=== PATIENT | female | born 2000 | race Caucasian/White ===

== ENCOUNTER 2019-03-05 19:37 | Outpatient (CLI) | payer MEDICAID, SELFPAY ==
[2019-03-05 19:38] VITALS: BP 107/64; PULSE 105; RESP 18; TEMP 36.8; O2SAT 97; BMI 19.2
[2019-03-05 19:56] LABS: Mucous, Urine 0 SEEN /hpf (<or=2+); Red Blood Cells-Urine 0 SEEN /hpf (0-5)
[2019-03-05 20:04] LABS: Color, Urine Yellow (Yellow); Glucose, Dipstick Normal (Normal); Ketone-Dipstick 15 mg/dl (Negative); Leukocyte Esterase-Dipstick 500 /ul (Negative); Nitrite-Dipstick Positive (Negative); Occult Blood-Urine 150 /ul (Negative); Protein-Dipstick 100 mg/dl (Negative); Specific Gravity, Urine 1.025 (1.002-1.030); Urine Bilirubin Dipstick Negative (Negative); Urine Clarity Cloudy (Clear); Urine Urobilinogen 4 mg/dl (Normal)
[2019-03-05 20:17] LABS: White Blood Cells 25-50 SEEN /hpf (0-5)
[2019-03-05 20:18] LABS: Bacteria 4+ /hpf (None Seen); Squamous Epithelial Cells - UA 5-10 SEEN /hpf (5-10)
[2019-03-05 20:23] LABS: Absolute Neutrophil Count 6.6 X10^3/uL (2.0-7.7); Basophil# 0.02 X10^3/uL; Basophil% 0.3 % (0-1); Eosinophil# 0.01 X10^3/uL; Eosinophils% 0.1 % (0-5); Hematocrit 31.2 % (37-47); Hemoglobin 11.1 g/dL (12.0-15.0); Lymphocyte % 6.6 % (19-41); Mean Corp Hgb Conc 35.6 g/dL (32-36); Mean Corpuscular Hgb 31.1 pg (27.0-32.0); Mean Corpuscular Volume 87.4 fL (81-99); Mean Platelet Vol. 9.4 fl (6.2-12.0); Monocyte# 0.48 X10^3/uL; Monocyte% 6.3 % (0-10); NRBC Flagged by Analyzer 0 % (0-5); Neutrophil # 6.59 X10^3/uL (2.7-7.7); Neutrophil % 86.4 % (47-70); POSITIVE DIFFERENTIAL YES; Platelet Count 159 K/mm3 (150-450); RBC Distribution Width SD 41.2 fl (35.1-43.9); Red Blood Count 3.57 M/mm3 (4.2-5.4); White Blood Count 7.6 K/mm3 (4.4-11.0)
[2019-03-05 20:24] LABS: Differential Indicated SCAN CRITERIA MET
[2019-03-05 20:36] LABS: Anion Gap 8 (5-15); BUN 7 mg/dL (7-18); BUN/Creat Ratio 9.9 RATIO (10-20); Calcium,Total 8.6 mg/dL (8.5-10.1); Chloride 106 mmol/L (98-107); Creatinine, Serum 0.71 mg/dL (0.55-1.02); EST Glomerular Filtration Rate 111 mL/min (>60); Est Glom Filt Rate - Afr Amer 134 mL/min (>60); Estimated Creatinine Clearance 97.35 ml/min; Glucose 96 mg/dL (74-106); Sodium Level 138 mmol/L (136-145)
[2019-03-05 20:38] LABS: Internal QC Validated? YES +Cl - CLEAR BKGD
[2019-03-05 20:39] LABS: Pregnancy, Serum, hCG Quali. POSITIVE Negative
[2019-03-05 20:40] LABS: Differential Comment SCANNED
--- NOTE | 2019-03-05 21:00 | US_ITS ---
HISTORY: Right lower quadrant pain that is moderate in severity. No bleeding. No period for a year. test in the emergency room is positive. 52 endovaginal images. Findings: The cervix is not completely closed. It is measured at 3 cm. Fluid, likely blood is present within the endocervical canal. The uterus demonstrates a placenta and the gestational sac and fetus. The placenta is anterior and fundal. Cranially it does extend along the posterior margin for small amount. Debris is present within the amniotic fluid. Color Doppler imaging demonstrates flow to the umbilical cord and the fetus. heart motion by M-mode imaging is detected at 153 bpm. Presentation is breech. This study is not an anatomy screening ultrasound. The anatomy was not imaged in detail to assess for anatomic abnormalities. BDP equals 4.5 cm, equating to 19 weeks 4 days. HC equals 16.8 cm, equating to 19 weeks 4 days. AC equals 14.3 cm, equating to 19 weeks 5 day. FL equals 3 cm, equating to 19 weeks 3 days. Estimated weight is 299 g. US/OB Limited With Biometrics IMPRESSION: SLIUP. EGA 19 W-4 D PAUL 07/26/2019 Fluid within the endocervical canal possibly representing hemorrhage or amniotic fluid. This study was not performed as an anatomic survey. anomaly was not evaluated due to a great enough detail to include or exclude anomalies. at [id number] Reported and signed by: Bebeto Gaming MD Electronically Signed: Bebeto Gaming MD at 22:45 EDT Tel , Service support ,
[2019-03-05] MEDS: 0.9% Normal Saline 1,000 ML 1000 ML IV (21:28)
[2019-03-05] MEDS: proMETHazine 25 MG/ML Syringe 6.25 MG IV (21:29)
[2019-03-05] MEDS: Acetaminophen 500 MG Tablet 1000 MG PO (21:29)
--- NOTE | 2019-03-05 23:15 | ED.DCSUM_ITS ---
- ER Visit Summary Date of Service: 03/05/19 Chief Complaint: Right lower quadrant and right lower back pain History of Present Illness: The patient is a 19 F presenting with right lower quadrant and right lower back pain. This started yesterday. Patient has nausea with no vomiting. She has had dysuria. She has had fever up to 101.7 at home. She denies other complaints. Physical Examination: Vitals are stable. Heart rate 105. Patient is afebrile. Alert no acute distress. HEENT exam is unremarkable. Neck is supple. Lungs are clear and equal bilaterally. Heart is regular and tachycardic Abdomen is soft diffuse lower quadrant tenderness. No rebound or guarding Back right CVA tenderness Extremities are unremarkable. Skin is warm and dry. No focal neurologic deficit. Remainder of exam is unremarkable. Emergency Department Course and Treatment: Urinalysis shows 25-50 white blood cells, 0 red cells. Positive leukocyte and nitrite. CBC normal except for hemoglobin 11.1. Chemistries unremarkable. hCG positive. U[place] [address]. Blood type is O+. Pelvic ultrasound shows SLIUP. EGA 19 W-4 D PAUL 07/26/2019 Fluid within the endocervical canal possibly representing hemorrhage or amniotic fluid. Discussed with Dr. Champagne. Patient was given Rocephin IV. Patient will be sent to OB triage to check for amniotic fluid. Patient understands and is agreeable to plan. She is discharged to OB triage. Disposition: To OB triage Impression: Abdominal pain, , UTI This note was generated with mang[employer] jobs dictation software. It may contain incorrect words, spelling, and punctuation that were not noted in review of the chart prior to signing ED Disposition - Plan for ED Patient: Referrals: Mustapha Garay MD [Primary Care Provider] -
[2019-03-05 23:18] VITALS: BP 103/62; PULSE 92; RESP 16; O2SAT 100
[2019-03-05] MEDS: Ceftriaxone 1 GM/50 ML BAG IV (23:48)
[2019-03-06 00:25] VITALS: BP 103/64; PULSE 87; RESP 16; O2SAT 97
--- NOTE | 2019-03-06 00:52 | ED.RN ---
PT WAS DISCHARGED FROM THE ER AND TRANSPORTED TO OB. IV LEFT IN PLACE.
[2019-03-06 01:05] VITALS: BMI 19.1
[2019-03-06 01:42] LABS: ROM Internal Control Test YES-OK TO RESULT pt. (Internal QC); ROM Patient Test Negative (Negative)
--- NOTE | 2019-03-06 08:22 | OB.TRI.NOTE ---
History of Present Illness Date of Service: 03/06/19 Was patient seen by the physician?: No Reason For Visit: RULE OUT Date of Service: 03/06/19 Final PAUL: 07/26/19 Gestational age: 19 Weeks and 5 Days Allergies Penicillins Allergy (Verified 03/05/19 21:31) Hives Laboratory Studies: Laboratory Tests 03/06/19 03/05/19 03/05/19 Range/Units 00:55 21:23 20:10 WBC (4.4-11.0) K/mm3 RBC (4.2-5.4) M/mm3 Hgb (12.0-15.0) g/dL Hct (37-47) % MCV (81-99) fL MCH (27.0-32.0) pg MCHC (32-36) g/dL RDW Std Deviation (35.1-43.9) fl RDW Coeff of Alfonso (11.6-14.6) % Plt Count (150-450) K/mm3 MPV (6.2-12.0) fl Immature Gran % (Auto) (0.0-0.9) % Neut % (Auto) (47-70) % Lymph % (Auto) (19-41) % Barnes % (Auto) (0-10) % Eos % (Auto) (0-5) % Baso % (Auto) (0-1) % Absolute Neuts (auto) (2.0-7.7) X10^3/uL Absolute Lymphs (auto) (0.83-4.51) X10^3/uL Nucleated RBC % (0-5) % Differential Comment Sodium (136-145) mmol/L Potassium (3.5-5.1) mmol/L Chloride (98-107) mmol/L Carbon Dioxide (21.0-32.0) mmol/L Anion Gap (5-15) BUN (7-18) mg/dL Creatinine (0.55-1.02) mg/dL Estim Creat Clear Calc ml/min Est GFR (MDRD) Af Amer (>60) mL/min Est GFR (MDRD) Non-Af (>60) mL/min BUN/Creatinine Ratio (10-20) RATIO Glucose (74-106) mg/dL Calcium (8.5-10.1) mg/dL HCG, Quant 76231 H (1-3) mIU/mL Serum , Qual Negative Urine Color (Yellow) Urine Clarity (Clear) Urine pH (5.0 - 8.0) Ur Specific [place] (1.002-1.030) Urine Protein (Negative) mg/dl Urine Glucose (UA) (Normal) mg/dl Urine Ketones (Negative) mg/dl Urine Occult Blood (Negative) /ul Urine Nitrite (Negative) Urine Bilirubin (Negative) mg/dL Urine Urobilinogen (Normal) mg/dl Ur Leukocyte Esterase (Negative) /ul Urine RBC (0-5) /hpf Urine WBC (0-5) /hpf Ur Squamous Epith Cells (5-10) /hpf Urine Bacteria (None Seen) /hpf Urine Mucus (<or=2+) /hpf Vag Amniotic Fld Detect Negative (Negative) Blood Type O POSITIVE 03/05/19 03/05/19 03/05/19 Range/Units 20:10 20:10 20:10 WBC 7.6 (4.4-11.0) K/mm3 RBC 3.57 L (4.2-5.4) M/mm3 Hgb 11.1 L (12.0-15.0) g/dL Hct 31.2 L (37-47) % MCV 87.4 (81-99) fL MCH 31.1 (27.0-32.0) pg MCHC 35.6 (32-36) g/dL RDW Std Deviation 41.2 (35.1-43.9) fl RDW Coeff of Alfonso 13.0 (11.6-14.6) % Plt Count 159 (150-450) K/mm3 MPV 9.4 (6.2-12.0) fl Immature Gran % (Auto) 0.300 (0.0-0.9) % Neut % (Auto) 86.4 H (47-70) % Lymph % (Auto) 6.6 L (19-41) % Barnes % (Auto) 6.3 (0-10) % Eos % (Auto) 0.1 (0-5) % Baso % (Auto) 0.3 (0-1) % Absolute Neuts (auto) 6.6 (2.0-7.7) X10^3/uL Absolute Lymphs (auto) 0.50 L (0.83-4.51) X10^3/uL Nucleated RBC % 0 (0-5) % Differential Comment SCANNED Sodium 138 (136-145) mmol/L Potassium 4.0 (3.5-5.1) mmol/L Chloride 106 (98-107) mmol/L Carbon Dioxide 24.0 (21.0-32.0) mmol/L Anion Gap 8 (5-15) BUN 7 (7-18) mg/dL Creatinine 0.71 (0.55-1.02) mg/dL Estim Creat Clear Calc 97.35 ml/min Est GFR (MDRD) Af Amer 134 (>60) mL/min Est GFR (MDRD) Non-Af 111 (>60) mL/min BUN/Creatinine Ratio 9.9 L (10-20) RATIO Glucose 96 (74-106) mg/dL Calcium 8.6 (8.5-10.1) mg/dL HCG, Quant (1-3) mIU/mL Serum , Qual POSITIVE Negative Urine Color (Yellow) Urine Clarity (Clear) Urine pH (5.0 - 8.0) Ur Specific [place] (1.002-1.030) Urine Protein (Negative) mg/dl Urine Glucose (UA) (Normal) mg/dl Urine Ketones (Negative) mg/dl Urine Occult Blood (Negative) /ul Urine Nitrite (Negative) Urine Bilirubin (Negative) mg/dL Urine Urobilinogen (Normal) mg/dl Ur Leukocyte Esterase (Negative) /ul Urine RBC (0-5) /hpf Urine WBC (0-5) /hpf Ur Squamous Epith Cells (5-10) /hpf Urine Bacteria (None Seen) /hpf Urine Mucus (<or=2+) /hpf Vag Amniotic Fld Detect (Negative) Blood Type 03/05/19 Range/Units 19:50 WBC (4.4-11.0) K/mm3 RBC (4.2-5.4) M/mm3 Hgb (12.0-15.0) g/dL Hct (37-47) % MCV (81-99) fL MCH (27.0-32.0) pg MCHC (32-36) g/dL RDW Std Deviation (35.1-43.9) fl RDW Coeff of Alfonso (11.6-14.6) % Plt Count (150-450) K/mm3 MPV (6.2-12.0) fl Immature Gran % (Auto) (0.0-0.9) % Neut % (Auto) (47-70) % Lymph % (Auto) (19-41) % Barnes % (Auto) (0-10) % Eos % (Auto) (0-5) % Baso % (Auto) (0-1) % Absolute Neuts (auto) (2.0-7.7) X10^3/uL Absolute Lymphs (auto) (0.83-4.51) X10^3/uL Nucleated RBC % (0-5) % Differential Comment Sodium (136-145) mmol/L Potassium (3.5-5.1) mmol/L Chloride (98-107) mmol/L Carbon Dioxide (21.0-32.0) mmol/L Anion Gap (5-15) BUN (7-18) mg/dL Creatinine (0.55-1.02) mg/dL Estim Creat Clear Calc ml/min Est GFR (MDRD) Af Amer (>60) mL/min Est GFR (MDRD) Non-Af (>60) mL/min BUN/Creatinine Ratio (10-20) RATIO Glucose (74-106) mg/dL Calcium (8.5-10.1) mg/dL HCG, Quant (1-3) mIU/mL Serum , Qual Negative Urine Color Yellow (Yellow) Urine Clarity Cloudy (Clear) Urine pH 5.0 (5.0 - 8.0) Ur Specific [place] 1.025 (1.002-1.030) Urine Protein 100 H (Negative) mg/dl Urine Glucose (UA) Normal (Normal) mg/dl Urine Ketones 15 H (Negative) mg/dl Urine Occult Blood 150 H (Negative) /ul Urine Nitrite Positive H (Negative) Urine Bilirubin Negative (Negative) mg/dL Urine Urobilinogen 4 H (Normal) mg/dl Ur Leukocyte Esterase 500 H (Negative) /ul Urine RBC 0 SEEN (0-5) /hpf Urine WBC 25-50 SEEN (0-5) /hpf Ur Squamous Epith Cells 5-10 SEEN (5-10) /hpf Urine Bacteria 4+ (None Seen) /hpf Urine Mucus 0 SEEN (<or=2+) /hpf Vag Amniotic Fld Detect (Negative) Blood Type Physical Exam Vitals: Vital Signs Temp Pulse Resp BP Pulse Ox 98.3 F 87 16 103/64 97 03/05/19 19:38 03/06/19 00:25 03/06/19 00:25 03/06/19 00:25 03/06/19 00:25 NST - FHR Rate Baby A Baseline: n/a Uterine Activity:: Heart tones were positive by Doppler, there are no contractions visible on the tocometer Impression/Plan 19-year-old 1 para 0 at approximately 19 weeks gestation who did not know she was till today. Was transferred from the emergency room for possible rupture membranes. Patient had a negative evaluation for ruptured membranes, and she had no pain when she was on our unit and no visible contractions. She was discharged home and we will call her later today for follow-up.
== END 2019-03-06 02:00 | disposition home or self-care (01) ==
LOC: ED 20:49 → WPOUT 03-06 01:03 → WP 03-06 01:04
PROVIDERS: Emergency Provider Emergency Medicine; Family Provider Pediatrics; PCP Pediatrics; Referring Provider Obstetrics & Gynecology; Visit Provider Obstetrics & Gynecology
DX: O23.42 Unspecified infection of urinary tract in pregnancy, second trimester (principal); O21.9 Vomiting of pregnancy, unspecified; O26.892 Other specified pregnancy related conditions, second trimester; R10.31 Right lower quadrant pain; R00.0 Tachycardia, unspecified; Z88.0 Allergy status to penicillin; Z3A.19 19 weeks gestation of pregnancy
CPT/HCPCS: 36415; 59050; 76816; 80048; 81001; 84112; 84702; 84703; 85025; 86900; 86901; 87077; 87086; 87088; 87186; 96361; 96365; 96375; 99218; 99283; J7030; J7050; G0378

== ENCOUNTER 2019-07-13 11:50 | Inpatient (IN) | payer MEDICAID, SELFPAY ==
[2019-07-13 11:42] VITALS: BMI 22.1
[2019-07-13 11:49] LABS: ROM Internal Control Test YES-OK TO RESULT pt. (Internal QC)
[2019-07-13 11:50] LABS: ROM Patient Test POSITIVE (Negative)
[2019-07-13] MEDS: Lactated Ringers 1,000 ML 50 ML IV (12:30)
[2019-07-13 12:46] LABS: Absolute Lymphocyte Count 2.24 X10^3/uL (0.83-4.51); Absolute Neutrophil Count 7.3 X10^3/uL (2.0-7.7); Basophil# 0.05 X10^3/uL; Basophil% 0.5 % (0-1); Eosinophil# 0.05 X10^3/uL; Eosinophils% 0.5 % (0-5); Hematocrit 33.6 % (37-47); Hemoglobin 11.1 g/dL (12.0-15.0); Lymphocyte # 2.24 X10^3/ul (4.0); Lymphocyte % 21.6 % (19-41); Mean Corpuscular Hgb 27.8 pg (27.0-32.0); Mean Platelet Vol. 10.7 fl (6.2-12.0); Monocyte# 0.69 X10^3/uL; Monocyte% 6.7 % (0-10); NRBC Flagged by Analyzer 0 % (0-5); Neutrophil # 7.27 X10^3/uL (2.7-7.7); Platelet Count 264 K/mm3 (150-450); RBC Distribution Width CV 12.5 % (11.6-14.6); RBC Distribution Width SD 37.5 fl (35.1-43.9); White Blood Count 10.4 K/mm3 (4.4-11.0)
[2019-07-13] MEDS: Oxytocin 30 units/NS 500 ml 30 UNITS/500 ML IV.SOLN IV (13:14)
--- NOTE | 2019-07-13 14:37 | NURSING ---
Void x 1. Did not measure.
--- NOTE | 2019-07-13 16:28 | PCM.HP.OB ---
History Date of Admission: 07/13/19 Final PAUL: 07/30/19 Gestational age: 37 Weeks and 4 Days History of this : This is a 19 year-old, @ 37.4 weeks with SROM at home approx 0630 Allergies Penicillins Allergy (Verified 07/13/19 11:39) Hives Home Medications: Home Medications Iron Polysaccharide Complex [Polysaccharide Iron] 180 mg PO DAILY 07/13/19 Vits [Prenatabs FA] 1 tab PO DAILY 07/13/19 Smoking Status: Former smoker Alcohol: None Number of Fetus(es): 1 NST - FHR Rate Baby A Baseline: 140 Variability:: Moderate Accelerations:: 15 x 15 Decelerations:: None NST Reactive:: Yes FHR Category:: Category I Uterine Activity:: irregular History Past Pregnancies: Past Pregnancies Delivery Date Name GA/ Weeks Outcome Route Wt Infant Sex Labor Length Anesthesia Delivery Location Provider FOB Labs: GBS negative, syhphilis neg, rub imm, hep b neg, hiv NR, O+ Expected Delivery Method: Spontaneous Vaginal Review of Systems Constitutional: Reports: Anorexia Physical Exam General: Alert, Oriented x3 Abdomen: Soft, Non Tender, Gravid Neurological: Cranial nerves II-XII grossly intact 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
[2019-07-13] MEDS: Lactated Ringers 500 ML 999 ML IV ×3 (17:07→22:18)
[2019-07-13] MEDS: Acetaminophen 325 MG Tablet PO (17:22)
[2019-07-13] MEDS: fentaNYL-bupivacaine (epidural) 100 ML BAG EPIDURAL (22:33)
[2019-07-13] MEDS: Lactated Ringers 1,000 ML 200 ML IV (22:55)
[2019-07-14] MEDS: fentaNYL-bupivacaine (epidural) 100 ML BAG EPIDURAL (03:41)
[2019-07-14] MEDS: Lactated Ringers 1,000 ML 200 ML IV (04:26)
[2019-07-14] MEDS: Oxytocin 30 units/NS 500 ml 30 UNITS/500 ML IV.SOLN 334 UNITS IV (05:17)
--- NOTE | 2019-07-14 05:37 | PCM.OPRPT ---
Vaginal Delivery Maternal Presentation: Spontaneous Rupture of Membranes Method of Induction: Pitocin Amniotic Membrane Rupture Type: Spontaneous at home Rupture of Membrane time: 06 Amniotic Fluid Description: Clear Final PAUL: 07/30/19 Gestational age: 37 Weeks and 5 Days Date of Procedure: 07/14/19 Pre-Operative Diagnosis: spontaneous ROM at home, term gestation Post-Operative Diagnosis: live male infant Surgery/ Procedure Performed: Spontaneous Vaginal Delivery Type of Anesthesia: Epidural Description of Procedure: of live male born without complication. good maternal pushing efforts delivered head followed by gentle downward traction and delivery of anterior shoulder followed by rest of infant body. placed on maternal chest. delayed cord clamping performed. Presentation: Vertex Placental Delivery Description: Spontaneous Placenta Disposition: [facility] Cord Vessel Description: 3 Vessels Nuchal Cord Compression: Without compression Cord Entanglement: None Drain: Bridges to straight drain Estimated Blood Loss: 200 Infant A gender: Male (1 minute): 7 (5 minute): 9 Episiotomy Description: None Laceration: Perineal Extension/lac - repaired with 3-0 rapide, 1st degree Medications given after delivery: IV Pitocin Complications: None
[2019-07-14] MEDS: Acetaminophen 500 MG Tablet 1000 MG PO (06:12)
[2019-07-14] MEDS: 0.9% Saline Lock 10 ML Syringe IV (08:15)
[2019-07-14 14:00] VITALS: BP 111/54; PULSE 82; RESP 12; TEMP 37.7
[2019-07-14 20:37] VITALS: BP 105/64; PULSE 80; RESP 16; TEMP 37.3; O2SAT 99
[2019-07-14] MEDS: Ibuprofen 600 MG Tablet PO (23:18)
[2019-07-14 23:22] VITALS: BP 97/65; PULSE 62; RESP 18; TEMP 37.3; O2SAT 99
[2019-07-15 03:15] VITALS: BP 105/61; PULSE 87; RESP 16; TEMP 37.1; O2SAT 98
[2019-07-15 08:00] VITALS: BP 104/66; PULSE 73; RESP 18; TEMP 36.6
--- NOTE | 2019-07-15 08:03 | PCM.PN.OB ---
Subjective: Patient seen at bedside, doing well. Patient reports good pain control. Mild lochia. Breast-feeding going well. - Physical Exam Vitals/I&O's: Vital Signs Temp Pulse Resp BP Pulse Ox 98.7 F 87 16 105/61 98 07/15/19 03:15 07/15/19 03:15 07/15/19 03:15 07/15/19 03:15 07/15/19 03:15 Oxygen Delivery Method Room Air Weight: 56.8 kg Body Mass Index (BMI) 22.1 Intake and Output for Last 24 Hours 07/13/19 07/14/19 07/15/19 23:59 23:59 23:59 Intake Total 2371.23 / 2371.23 2725.24 / 272.24 Output Total 450 / 450 700 / 700 Balance 1921.23 / 1921.23 2024. / 2024. General: Alert, Oriented x3 Abdomen: Soft, Non Tender, Non-Distended, - - fundus firm Extremities: No Calf Tenderness Current Medications Acetaminophen (Tylenol) 1,000 mg PO Q8H PRN PRN PRN Reason: Pain Score 1-3/10 Last Admin: 07/14/19 06:12 Dose: 1,000 mg Documented by: Bisacodyl (Dulcolax) 10 mg RECTAL UD PRN PRN Reason: If no BM Dibucaine (Dibucaine) 1 applic TOPICAL TID PRN PRN; Protocol PRN Reason: Discomfort Hydrocortisone (Hytone) 1 applic TOPICAL TID PRN PRN; Protocol PRN Reason: Discomfort Ibuprofen (Motrin) 600 mg PO Q6H PRN PRN PRN Reason: Pain Score 1-3/10 Last Admin: 07/14/19 23:18 Dose: 600 mg Documented by: Methylergonovine Maleate (Methergine) 0.2 mg IM X1 PRN PRN Reason: Excess bleeding/uterine atony Ondansetron HCl (Zofran) 4 mg IV Q4H PRN PRN PRN Reason: Nausea Oxycodone HCl (Oxyir) 5 - 10 mg PO Q4H PRN PRN PRN Reason: Pain Score 4-10/10 Senna/Docusate Sodium (Senokot-S, Kaylene-Colace) 1 - 2 tablet PO DAILY PRN PRN PRN Reason: Constipation Simethicone (Mylicon) 80 mg PO PCHS PRN PRN Reason: Indigestion/Stomach pain Sodium Chloride () 5 - 15 ml IV UD PRN PRN Reason: SALINE FLUSH Last Admin: 07/14/19 08:15 Dose: 5 ml Documented by: Medical Necessity - Tobacco Use Smoking Status: Former smoker Assessment/Plan PPD#1, doing well routine care pain mgmt
[2019-07-15 13:54] VITALS: BP 98/67; PULSE 95; RESP 18; TEMP 36.9
[2019-07-15] MEDS: Ibuprofen 600 MG Tablet PO (16:21)
[2019-07-15 21:12] VITALS: BP 113/74; PULSE 74; RESP 14; TEMP 36.6; O2SAT 98
[2019-07-16 02:03] VITALS: BP 109/65; PULSE 62; RESP 16; TEMP 36.6
[2019-07-16 07:47] VITALS: BP 111/61; PULSE 60; RESP 16; TEMP 37.1; O2SAT 97
--- NOTE | 2019-07-16 08:56 | PCM.PN.OB ---
Subjective: Doing well per patient and nursing staff. Ambulating and taking PO. Pain controlled. . Denies chest pain, SOB, leg pain, increased vaginal bleeding or clots. Planning D/C home today. - Physical Exam Vitals/I&O's: Vital Signs Temp Pulse Resp BP Pulse Ox 98.8 F 60 16 111/61 97 07/16/19 07:47 07/16/19 07:47 07/16/19 07:47 07/16/19 07:47 07/16/19 07:47 Oxygen Delivery Method Room Air Weight: 125 lb 3.561 oz Body Mass Index (BMI) 22.1 Intake and Output for Last 24 Hours 07/14/19 07/15/19 07/16/19 23:59 23:59 23:59 Intake Total 2725.24 / 272.24 Output Total 700 / 700 Balance / General: Alert, Oriented x3 HEENT: Atraumatic, Normocephalic Neck: Trachea Midline Lungs: Clear to auscultation, Normal air movement, No rhonchi, No wheeze Cardiovascular: Regular rate, Regular Rhythm, No murmurs Abdomen: Bowel Sounds Present - Fundus firm 3 below U Extremities: No edema - Kayley's negative bilaterally Psych/Mental Status: Normal Affect, Appropriate Current Medications Acetaminophen (Tylenol) 1,000 mg PO Q8H PRN PRN PRN Reason: Pain Score 1-3/10 Last Admin: 07/14/19 06:12 Dose: 1,000 mg Documented by: Bisacodyl (Dulcolax) 10 mg RECTAL UD PRN PRN Reason: If no BM Dibucaine (Dibucaine) 1 applic TOPICAL TID PRN PRN; Protocol PRN Reason: Discomfort Hydrocortisone (Hytone) 1 applic TOPICAL TID PRN PRN; Protocol PRN Reason: Discomfort Ibuprofen (Motrin) 600 mg PO Q6H PRN PRN PRN Reason: Pain Score 1-3/10 Last Admin: 07/15/19 16:21 Dose: 600 mg Documented by: Methylergonovine Maleate (Methergine) 0.2 mg IM X1 PRN PRN Reason: Excess bleeding/uterine atony Ondansetron HCl (Zofran) 4 mg IV Q4H PRN PRN PRN Reason: Nausea Oxycodone HCl (Oxyir) 5 - 10 mg PO Q4H PRN PRN PRN Reason: Pain Score 4-10/10 Senna/Docusate Sodium (Senokot-S, Kaylene-Colace) 1 - 2 tablet PO DAILY PRN PRN PRN Reason: Constipation Simethicone (Mylicon) 80 mg PO PCHS PRN PRN Reason: Indigestion/Stomach pain Sodium Chloride () 5 - 15 ml IV UD PRN PRN Reason: SALINE FLUSH Last Admin: 07/14/19 08:15 Dose: 5 ml Documented by: Medical Necessity - Tobacco Use Smoking Status: Former smoker Assessment/Plan A:PPD #2 P: 1) Routine care 2) Discharge instructions reviewed 3) Follow up in 2 weeks and 6 weeks 4) Discharge home
--- NOTE | 2019-07-16 08:59 | DCINST_ITS ---
Discharge Diet: No Restrictions Discharge Activity: Return to Normal Activity, May Drive, May Shower, May Take a Tub Bath May resume sexual activity in: 4-6 weeks Weight Bearing Status: Full weight bearing Additional Activity Instructions:: Nothing in the vagina for 4-6 weeks. You may return to work/school in 6 weeks. Call your doctor if your incision/area has: Continuous Slow Oozing, Sudden Increased Bleeding, Increased Pain/ Swelling, Increased Redness, Foul Smelling Discharge Call your doctor if you observe: Fever of 101 or Higher, Inability to urinate, Inability to have a bowel movement, Using more than one pad per hour, Shortness of breath, Chest pain, Increased palpitations (irregular heartbeat), Calf discomfort, Uncontrolled pain Additional Instructions: If you experience any of the following, contact your healthcare provider. * Bleeding that soaks a pad every hour for 2 hours * Fever 100.4 or higher * Unrelieved incision or abdominal pain * Swelling, redness, discharge or bleeding from your incision or episiotomy site * Your incision begins to separate * Problems urinating (including inability to urinate or burning while urinating). * Visual changes * Severe headache * Flu-like symptoms * Pain or redness in one of both of your breasts * Pain, warmth, tenderness or swelling in your legs, especially the calf area * Frequent nausea and vomiting * Symptoms of depression or anxiety If you experience any of the following, call 911 or go to the nearest Emergency Room. * Chest pain * Problems breathing * Seizure activity * Partial or complete paralysis of a body part, slurred speech, weakness or drooping of the face, or a sudden inability to walk or hold your balance Allergies/Adverse Reactions: Allergies Penicillins Allergy (Verified 07/13/19 11:39) Hives Medications to take at Discharge Iron Polysaccharide Complex [Polysaccharide Iron] 180 mg PO DAILY 07/13/19 Vits [Prenatabs FA] 1 tab PO DAILY 07/13/19 Please Follow Up With: Chuyita May MD When: Call to make an appointment with your doctor in 2 weeks and 6 weeks. Primary Care Physician: Care Physician,No Primary [Primary Care Provider] - Test Results: Test results from this visit will be discussed in further detail at your follow- up appointment, if applicable.
[2019-07-16 15:00] VITALS: BP 111/67; PULSE 84; RESP 16; TEMP 37.2; O2SAT 97
== END 2019-07-16 15:25 | disposition home or self-care (01) | DRG 560 ==
LOC: WPOUT 11:55 → WP 11:55
PROVIDERS: Admitting Provider Obstetrics & Gynecology; Referring Provider Obstetrics & Gynecology; Visit Provider Obstetrics & Gynecology
DX: O69.81X0 Labor and delivery complicated by cord around neck, without compression, not applicable or unspecified (principal); K21.9 Gastro-esophageal reflux disease without esophagitis; Z88.0 Allergy status to penicillin; Z87.891 Personal history of nicotine dependence; Z3A.37 37 weeks gestation of pregnancy; Z37.0 Single live birth
CPT/HCPCS: 59025; 59050; 84112; 85025; 86850; 86900; 86901; 99218; J7120; A4216; G0378

== ENCOUNTER 2020-09-02 08:55 | Outpatient (CLI) | payer MEDICAID, SELFPAY ==
[2020-09-02 09:10] VITALS: BMI 21.6
[2020-09-02 09:37] VITALS: BP 100/59; PULSE 89; TEMP 36.2; O2SAT 98
[2020-09-02 09:40] LABS: ROM Internal Control Test YES-OK TO RESULT pt. (Internal QC); ROM Patient Test Negative (Negative)
--- NOTE | 2020-09-02 16:46 | OB.TRI.NOTE ---
History of Present Illness Date of Service: 09/02/20 Was patient seen by the physician?: No Reason For Visit: LABOR AND DELIVERY Date of Service: 09/02/20 Final PAUL: 09/22/20 Final PAUL Source: US <20 weeks Gestational age: 37 Weeks and 1 Days Allergies Penicillins Allergy (Verified 09/02/20 09:39) Hives Laboratory Studies: Laboratory Tests 09/02/20 Range/Units 09:10 Vag Amniotic Fld Detect Negative (Negative) Physical Exam Vitals: Vital Signs Temp Pulse BP Pulse Ox 97.2 F L 89 100/59 L 98 09/02/20 09:37 09/02/20 09:37 09/02/20 09:37 09/02/20 09:37 NST - FHR Rate Baby A Baseline: 140 Variability:: Moderate Accelerations:: 15 x 15 Decelerations:: None NST Reactive:: Yes FHR Category:: Category I Uterine Activity:: irritability Impression/Plan 20 YOF high risk multigravida at 37 weeks w/ false labor. D/w home w/ labor precautions. F /u as scheduled or prn in the office
== END 2020-09-02 10:45 | disposition home or self-care (01) ==
LOC: WPOUT 08:58 → WP 08:58
PROVIDERS: Referring Provider Obstetrics & Gynecology; Visit Provider Obstetrics & Gynecology
DX: O47.1 False labor at or after 37 completed weeks of gestation (principal); Z3A.37 37 weeks gestation of pregnancy
CPT/HCPCS: 59025; 59050; 84112; 99218; G0378

== ENCOUNTER 2020-09-08 18:15 | Inpatient (IN) | payer OTHER, MEDICAID, SELFPAY ==
[2020-09-08] VITALS (40 sets, daily range): BP systolic 93–138; BP diastolic 55–76; PULSE 20–127; TEMP 30.5–36.7; O2SAT 83–100; BMI 21.8
[2020-09-08] MEDS: Lactated Ringers 1,000 ML 50 ML IV (18:30)
--- NOTE | 2020-09-08 18:40 | HP.PCM_ITS ---
- Problem List (1) 38 weeks gestation of Status: Acute (2) Spontaneous onset of labor Status: Acute (3) Short interval between pregnancies complicating , antepartum Status: Acute History Date of Admission: 09/08/20 Final PAUL: 09/22/20 Final PAUL Source: US <20 weeks Gestational age: 38 Weeks and 0 Days History of this : This is a 20 year-old, G [2], P [1], at 38 weeks gestational age that was seen in office today for scheduled visit and CE completed. Patient is 5-6cm with a b ulging bag. Currently in spontaneous labor. Sent to Labor and Delivery. has been uncomplicated other than having short intervals between pregnancies. She just delivered child in 06/2019. Allergies Penicillins Allergy (Verified 09/02/20 09:39) Hives Home Medications: Home Medications Vits [Prenatabs FA ] 1 tab PO DAILY 07/13/19 Smoking Status: Light Smoker (<10/day) Alcohol: None Number of Fetus(es): 1 NST - FHR Rate Baby A Baseline: 140 Variability:: Moderate Decelerations:: None NST Reactive:: Yes FHR Category:: Category I Uterine Activity:: 3-4 minutes History Past Pregnancies: Past Pregnancies Delivery Date Name GA/ Weeks Outcome Route Wt Infant Sex Labor Length Anesthesia Delivery Location Provider FOB Labs: O+ Rubella - immune HB- neg HC- neg RPR- NR HIV- NR GBS- neg Covid- 19- unknown Expected Delivery Method: Spontaneous Vaginal Review of Systems Constitutional: Denies: Chills, Fever, Weight Change HEENT: Denies: Head Aches, Sinus Congestion, Sinus Drainage Cardiovascular: Denies: Chest Pain, Palpitations Respiratory: Denies: Cough, Shortness of breath at rest, Sputum production Gastrointestinal: Denies: Abdominal Pain, Nausea, Vomiting Genitourinary: Denies: Dysuria Musculoskeletal: Denies: Joint Pain, Joint Tenderness Skin: Denies: Rash, Wounds Physical Exam Vitals: Vital Signs Temp Pulse BP Pulse Ox 86.9 F L 20 L 116/76 83 09/08/20 18:32 09/08/20 18:33 09/08/20 18:31 09/08/20 18:33 General: Alert, Oriented x3, Cooperative Cardiovascular: Regular rate Lungs: Normal air movement Abdomen: Soft, Non-Distended, Gravid Neurological: Cranial nerves II-XII grossly intact Assessment/Plan All Active Problems 38 weeks gestation of (Acute) Spontaneous onset of labor (Acute) Short interval between pregnancies complicating , antepartum (Acute) This is a 20 year-old, G [2], P [1], at 38 weeks gestational age in spontaneous labor. Admit to labor and delivery Routine labs IV fluids per orders Epidural when indicated GBS negative Anticipate Dr. Ferrara aware of admission
[2020-09-08] MEDS: Lactated Ringers 500 ML 999 ML IV (18:45)
[2020-09-08 18:55] LABS: Absolute Lymphocyte Count 1.81 X10^3/uL (0.83-4.51); Absolute Neutrophil Count 8.7 X10^3/uL (2.0-7.7); Basophil# 0.05 X10^3/uL; Basophil% 0.4 % (0-1); Eosinophil# 0.08 X10^3/uL; Eosinophils% 0.7 % (0-5); Hematocrit 36.3 % (37-47); Hemoglobin 12.2 g/dL (12.0-15.0); Lymphocyte # 1.81 X10^3/ul (4.0); Lymphocyte % 16.2 % (19-41); Mean Corp Hgb Conc 33.6 g/dL (32-36); Mean Corpuscular Hgb 30.3 pg (27.0-32.0); Mean Corpuscular Volume 90.3 fL (81-99); Mean Platelet Vol. 9.9 fl (6.2-12.0); Monocyte# 0.54 X10^3/uL; Monocyte% 4.8 % (0-10); NRBC Flagged by Analyzer 0 % (0-5); Neutrophil # 8.66 X10^3/uL (2.7-7.7); Neutrophil % 77.5 % (47-70); Platelet Count 297 K/mm3 (150-450); RBC Distribution Width CV 13.2 % (11.6-14.6); RBC Distribution Width SD 43.1 fl (35.1-43.9); Red Blood Count 4.02 M/mm3 (4.2-5.4); White Blood Count 11.2 K/mm3 (4.4-11.0)
[2020-09-08] MEDS: fentaNYL-bupivacaine (epidural) 100 ML BAG EPIDURAL (20:24)
--- NOTE | 2020-09-08 20:41 | PCM.PN.OB ---
Patient Problems: Active and Suspected Problems 38 weeks gestation of (Acute) Spontaneous onset of labor (Acute) Short interval between pregnancies complicating , antepartum (Acute) Subjective: Patient comfortable with epidural anesthesia. Denies pain or feeling any contractions. Objective: CE /0 AROM for moderate amount of clear fluid Cat. 1 tracing NST reactive - Physical Exam Vitals/I&O's: Vital Signs Temp Pulse BP Pulse Ox 97.7 F L 92 117/59 L 99 09/08/20 19:13 09/08/20 20:38 09/08/20 20:37 09/08/20 20:38 Weight: 127 lb 2 oz Body Mass Index (BMI) 21.8 Intake and Output for Last 24 Hours 09/06/20 09/07/20 09/08/20 22:59 23:59 23:59 Intake Total 533.33 / 533.33 Balance 533.33 / 533.33 General: Alert, Oriented x3 Lungs: Normal air movement Cardiovascular: Regular rate Abdomen: Soft, Non Tender Neurological: Cranial nerves II-XII grossly intact Microbiology Past 72 Hours 09/08/20 18:45 Mucosa - Nose SARS-CoV-2 Antigen (Rapid) - Final Laboratory Results 09/08/20 18:35: WBC 11.2 H, RBC 4.02 L, Hgb 12.2, Hct 36.3 L, MCV 90.3, MCH 30.3, MCHC 33.6, RDW Std Deviation 43.1, RDW Coeff of Alfonso 13.2, Plt Count 297, MPV 9.9, Immature Gran % (Auto) 0.400, Neut % (Auto) 77.5 H, Lymph % (Auto) 16.2 L, [place] % (Auto) 4.8, Eos % (Auto) 0.7, Baso % (Auto) 0.4, Absolute Neuts (auto) 8.7 H, Absolute Lymphs (auto) 1.81, Nucleated RBC % 0 09/08/20 18:35: Blood Type O POSITIVE, Antibody Screen NEGATIVE Current Medications Acetaminophen (Acetaminophen 500 Mg Tablet) 500 - 1,000 mg PO Q6H PRN PRN PRN Reason: Pain Score 1-3 Al Hydroxide/Mg Hydroxide (Mag Hydrox/Al Hydrox/Simeth 30 Ml Udc) 15 - 30 ml PO Q4H PRN PRN PRN Reason: INDIGESTION Citric Acid/Sodium Citrate (Sodium Citrate/Citric Acid 30 Ml Udc) 30 ml PO X1 PRN PRN Reason: Section Ephedrine Sulfate (Ephedrine Sulfate 50 Mg/Ml Ampul) 10 mg IV Q10M PRN PRN Reason: hypotension Ephedrine Sulfate (Ephedrine Sulfate 50 Mg/Ml Ampul) 10 mg IM Q30M PRN PRN Reason: hypotension Fentanyl Citrate (Fentanyl 100 Mcg/2 Ml Ampul) 25 - 50 mcg IV Q2H PRN PRN PRN Reason: Pain Score 4-10 Fentanyl/Bupivacaine/Sodium Chlor (Fentanyl-Bupivacaine (Epidural) 100 Ml Bag) 0 ml EPIDURAL UD TACHO; Protocol Last Admin: 09/08/20 20:24 Dose: 100 ml Documented by: Lactated Ringer's () 500 mls @ 999 mls/hr IV .Q31M PRN PRN Reason: Epidural Last Infusion: 09/08/20 19:16 Dose: Infused Documented by: Lactated Ringer's () 500 mls @ 999 mls/hr IV .Q31M PRN PRN Reason: Corrective Measures Lactated Ringer's () 1,000 mls @ 50 mls/hr IV .Q20H TACHO Last Infusion: 09/08/20 19:10 Dose: 200 mls/hr Documented by: Nalbuphine HCl (Nalbuphine 10 Mg/Ml Ampul) 5 mg IV Q3H PRN PRN PRN Reason: ITCHING Naloxone HCl (Naloxone 0.4 Mg/Ml Syringe) 0.02 mg IV Q1M PRN PRN Reason: RR <10 and pt unresponsive Ondansetron HCl (Ondansetron 4 Mg/2 Ml Vial) 4 mg IV Q4H PRN PRN PRN Reason: NAUSEA Prochlorperazine Edisylate (Prochlorperazine 10 Mg/2 Ml Vial) 10 mg IV Q6H PRN PRN PRN Reason: NAUSEA Sodium Chloride (0.9% Saline Lock 10 Ml Syringe) 10 - 40 ml IV X1 PRN PRN Reason: SALINE FLUSH Medical Necessity - Tobacco Use Smoking Status: Light Smoker (<10/day) Assessment/Plan All Active Problems 38 weeks gestation of (Acute) Spontaneous onset of labor (Acute) Short interval between pregnancies complicating , antepartum (Acute) at 38.0 weeks gestation in spontaneous labor. AROM for clear fluid CE- 7//0 Position changes Anticipate
[2020-09-08] MEDS: Oxytocin 30 units/NS 500 ml 30 UNITS/500 ML IV.SOLN 334 UNITS IV (21:06)
--- NOTE | 2020-09-08 21:16 | PCM.OPRPT ---
Problem List (1) 38 weeks gestation of Status: Acute (2) Spontaneous onset of labor Status: Acute (3) Short interval between pregnancies complicating , antepartum Status: Acute (4) (spontaneous vaginal delivery) Status: Acute Report of Operation Date of Procedure: 09/08/20 Pre-Operative Diagnosis: Term gestation, spontaneous labor Post-Operative Diagnosis: same, live female infant Vaginal Delivery Maternal Presentation: Active Labor Patient is a at 38.0 weeks gestation that was sent over from office for being 5-6 cm dilated. Patient in spontaneous labor. Amniotic Membrane Rupture Type: Artificial Amniotic Fluid Description: Clear Final PAUL: 09/22/20 Gestational age: 38 Weeks and 0 Days Date of Procedure: 09/08/20 Pre-Operative Diagnosis: Term gestation, spontaneous labor Post-Operative Diagnosis: same, viable female Surgery/ Procedure Performed: Spontaneous Vaginal Delivery Type of Anesthesia: Epidural Description of Procedure: Patient feeling pressure in bottom after being laid down after epidural placement. Patient fully dilated and +2 station. Delivery of head with minimal maternal effort followed quickly by remainder of infant. Vigorous female infant placed on maternal abdomen and attended to by nursing staff. 3 vessel cord clamped and cut by FOB after 3 minute delay. Cord blood collected. IV pitocin started for active management of the third stage of labor. Placenta delivered &spontaneously and intact. EBL 200 cc. Perineum and vagina intact. Fundus firm 2 below U. Patient and baby bonding well. Dr. Ferrara updated. Presentation: Vertex Placental Delivery Description: Spontaneous Placenta Disposition: [facility] Cord Vessel Description: 3 Vessels Cord Entanglement: None Estimated Blood Loss: 200 Infant A gender: Female (1 minute): 7 (5 minute): 9 Episiotomy Description: None Laceration: None Medications given after delivery: IV Pitocin Complications: None
[2020-09-08] MEDS: 0.9% Saline Lock 10 ML Syringe IV (23:42)
[2020-09-09] VITALS (12 sets, daily range): BP systolic 111–115; BP diastolic 57–66; PULSE 67–77; RESP 14–16; TEMP 36.4–37; O2SAT 99
--- NOTE | 2020-09-09 07:36 | NURSING ---
This RN agrees with charting done by Petra Kaye RN.
--- NOTE | 2020-09-09 09:02 | PN.OBGYN_ITS ---
Patient Problems: Active and Suspected Problems 38 weeks gestation of (Acute) Spontaneous onset of labor (Acute) Short interval between pregnancies complicating , antepartum (Acute) (spontaneous vaginal delivery) (Acute) Subjective: No complaints - Physical Exam Vitals/I&O's: Vital Signs Temp Pulse Resp BP Pulse Ox 98.6 F 68 16 113/66 99 09/09/20 07:47 09/09/20 07:47 09/09/20 07:47 09/09/20 07:47 09/09/20 03:50 Oxygen Delivery Method Room Air Weight: 127 lb 2 oz Body Mass Index (BMI) 21.8 Intake and Output for Last 24 Hours 09/07/20 09/08/20 09/09/20 23:59 23:59 23:59 Intake Total 1420.00 / 1420.00 Output Total 700 / 700 Balance 1420.00 / 1420.00 -700 / -700 General: Oriented x3 Abdomen: Soft, Non Tender, Non-Distended - ff mid & below umb Extremities: No Calf Tenderness Microbiology Past 72 Hours 09/08/20 18:45 Mucosa - Nose SARS-CoV-2 Antigen (Rapid) - Final Laboratory Results 09/08/20 18:35: WBC 11.2 H, RBC 4.02 L, Hgb 12.2, Hct 36.3 L, MCV 90.3, MCH 30.3, MCHC 33.6, RDW Std Deviation 43.1, RDW Coeff of Alfonso 13.2, Plt Count 297, MPV 9.9, Immature Gran % (Auto) 0.400, Neut % (Auto) 77.5 H, Lymph % (Auto) 16.2 L, [place] % (Auto) 4.8, Eos % (Auto) 0.7, Baso % (Auto) 0.4, Absolute Neuts (auto) 8.7 H, Absolute Lymphs (auto) 1.81, Nucleated RBC % 0 09/08/20 18:35: Blood Type O POSITIVE, Antibody Screen NEGATIVE Current Medications Acetaminophen (Acetaminophen 500 Mg Tablet) 1,000 mg PO Q8H PRN PRN PRN Reason: Pain Score 1-3 Bisacodyl (Bisacodyl 10 Mg Suppository) 10 mg RC UD PRN PRN Reason: If no BM Dibucaine (Dibucaine 30 Gm Tube) 1 applic TOPICAL TID PRN PRN; Protocol PRN Reason: Discomfort Hydrocortisone (Hydrocortisone 2.5% Crm) 1 applic TOPICAL TID PRN PRN; Protocol PRN Reason: Discomfort Ibuprofen (Ibuprofen 600 Mg Tablet) 600 mg PO Q6H PRN PRN PRN Reason: Pain Score 1-3 Methylergonovine Maleate (Methylergonovine 0.2 Mg/Ml Ampul) 0.2 mg IM X1 PRN PRN Reason: Excess bleeding/uterine atony Ondansetron HCl (Ondansetron 4 Mg/2 Ml Vial) 4 mg IV Q4H PRN PRN PRN Reason: Nausea Senna/Docusate Sodium (Senna/Docusate Sodium 1 Tablet) 1 - 2 tablet PO DAILY PRN PRN PRN Reason: Constipation Simethicone (Simethicone 80 Mg Tablet) 80 mg PO PCHS PRN PRN Reason: Indigestion/Stomach pain Sodium Chloride (0.9% Saline Lock 10 Ml Syringe) 5 - 15 ml IV UD PRN PRN Reason: SALINE FLUSH Last Admin: 09/08/20 23:42 Dose: 10 ml Documented by: Medical Necessity - Tobacco Use Smoking Status: Light Smoker (<10/day) Assessment/Plan All Active Problems 38 weeks gestation of (Acute) Spontaneous onset of labor (Acute) Short interval between pregnancies complicating , antepartum (Acute) (spontaneous vaginal delivery) (Acute) PPD#1 Routine care Plan for d/c tomorrow
[2020-09-10 01:40] VITALS: BP 116/59; PULSE 70; RESP 16; TEMP 36.5
[2020-09-10 01:41] VITALS: BP 116/59; PULSE 70; TEMP 36.5
[2020-09-10 07:29] VITALS: BP 104/63; PULSE 67; PULSE 71; O2SAT 98
[2020-09-10 07:39] VITALS: BP 104/63; PULSE 73; RESP 12; TEMP 36.7; O2SAT 97
--- NOTE | 2020-09-10 08:34 | PCM.PN.OB ---
Patient Problems: Active and Suspected Problems 38 weeks gestation of (Acute) Spontaneous onset of labor (Acute) Short interval between pregnancies complicating , antepartum (Acute) (spontaneous vaginal delivery) (Acute) Subjective: pt seen at bedside, doing well. pt reports good pain control. lochia mild. Breast feeding. pt requesting dc home today. - Physical Exam Vitals/I&O's: Vital Signs Temp Pulse Resp BP Pulse Ox 98.0 F 73 12 104/63 97 09/10/20 07:39 09/10/20 07:39 09/10/20 07:39 09/10/20 07:39 09/10/20 07:39 Oxygen Delivery Method Room Air Weight: 57.663 kg Body Mass Index (BMI) 21.8 Intake and Output for Last 24 Hours 09/08/20 09/09/20 09/10/20 23:59 23:59 23:59 Intake Total 1420.00 / 1420.00 Output Total 700 / 700 Balance 1420.00 / 1420.00 -700 / -700 General: Alert, Oriented x3 Abdomen: Soft, Non Tender, Non-Distended Extremities: No Calf Tenderness Microbiology Past 72 Hours 09/08/20 18:45 Mucosa - Nose SARS-CoV-2 Antigen (Rapid) - Final Current Medications Acetaminophen (Acetaminophen 500 Mg Tablet) 1,000 mg PO Q8H PRN PRN PRN Reason: Pain Score 1-3 Bisacodyl (Bisacodyl 10 Mg Suppository) 10 mg RC UD PRN PRN Reason: If no BM Dibucaine (Dibucaine 30 Gm Tube) 1 applic TOPICAL TID PRN PRN; Protocol PRN Reason: Discomfort Hydrocortisone (Hydrocortisone 2.5% Crm) 1 applic TOPICAL TID PRN PRN; Protocol PRN Reason: Discomfort Ibuprofen (Ibuprofen 600 Mg Tablet) 600 mg PO Q6H PRN PRN PRN Reason: Pain Score 1-3 Methylergonovine Maleate (Methylergonovine 0.2 Mg/Ml Ampul) 0.2 mg IM X1 PRN PRN Reason: Excess bleeding/uterine atony Ondansetron HCl (Ondansetron 4 Mg/2 Ml Vial) 4 mg IV Q4H PRN PRN PRN Reason: Nausea Senna/Docusate Sodium (Senna/Docusate Sodium 1 Tablet) 1 - 2 tablet PO DAILY PRN PRN PRN Reason: Constipation Simethicone (Simethicone 80 Mg Tablet) 80 mg PO PCHS PRN PRN Reason: Indigestion/Stomach pain Sodium Chloride (0.9% Saline Lock 10 Ml Syringe) 5 - 15 ml IV UD PRN PRN Reason: SALINE FLUSH Last Admin: 09/08/20 23:42 Dose: 10 ml Documented by: Medical Necessity - Tobacco Use Smoking Status: Light Smoker (<10/day) Assessment/Plan All Active Problems 38 weeks gestation of (Acute) Spontaneous onset of labor (Acute) Short interval between pregnancies complicating , antepartum (Acute) (spontaneous vaginal delivery) (Acute) PPD#2, doing well routine care pain mgmt dc home
[2020-09-10 08:36] VITALS: BP 104/63; PULSE 73; RESP 12; TEMP 36.7; O2SAT 97
--- NOTE | 2020-09-10 08:36 | DCINST_ITS ---
Discharge Diet: No Restrictions Discharge Activity: Return to Normal Activity, May not drive while taking narcotic pain medications., May Shower May resume sexual activity in: 4-6 weeks Additional Activity Instructions:: Nothing in the vagina for 4-6 weeks. You may return to work/school in 6 weeks. Call your doctor if your incision/area has: Continuous Slow Oozing, Sudden Increased Bleeding, Increased Pain/ Swelling, Increased Redness, Foul Smelling Discharge Additional Instructions: If you experience any of the following, contact your healthcare provider. * Bleeding that soaks a pad every hour for 2 hours * Fever 100.4 or higher * Unrelieved incision or abdominal pain * Swelling, redness, discharge or bleeding from your incision or episiotomy site * Your incision begins to separate * Problems urinating (including inability to urinate or burning while urinating). * Visual changes * Severe headache * Flu-like symptoms * Pain or redness in one of both of your breasts * Pain, warmth, tenderness or swelling in your legs, especially the calf area * Frequent nausea and vomiting * Symptoms of depression or anxiety If you experience any of the following, call 911 or go to the nearest Emergency Room. * Chest pain * Problems breathing * Seizure activity * Partial or complete paralysis of a body part, slurred speech, weakness or drooping of the face, or a sudden inability to walk or hold your balance Allergies/Adverse Reactions: Allergies Penicillins Allergy (Verified 09/02/20 09:39) Hives Medications to take at Discharge Vits [Prenatabs FA ] 1 tab PO DAILY 07/13/19 Ibuprofen [Motrin] 600 mg PO Q6H PRN PRN #30 tablet 09/10/20 The following prescriptions were given: Ibuprofen [Motrin] 600 mg PO Q6H PRN PRN #30 tablet PRN Reason: Pain Score 1-3 Transmission Status: Pending to [facility]/pharmacy #[id number] Please Follow Up With: Leann Gill CNM When: Call to make an appointment with your doctor in 1-2 weeks and again at 6 weeks. Primary Care Physician: Care Physician,No Primary [Primary Care Provider] - Test Results: Test results from this visit will be discussed in further detail at your follow- up appointment, if applicable.
== END 2020-09-10 10:20 | disposition home or self-care (01) | DRG 807 ==
PROVIDERS: Admitting Provider Advanced Practice Midwife; Visit Provider Advanced Practice Midwife
DX: O99.334 Smoking (tobacco) complicating childbirth (principal); F17.200 Nicotine dependence, unspecified, uncomplicated; Z3A.38 38 weeks gestation of pregnancy; Z37.0 Single live birth
CPT/HCPCS: 59025; 59050; 85025; 86850; 86900; 86901; 87426; 99218; J7120; A4216; G0378

== ENCOUNTER 2021-10-09 10:39 | Outpatient (CLI) | payer MEDICAID, SELFPAY ==
[2021-10-09 10:59] LABS: Lipase 200 U/L (73-393)
== END 2021-10-09 23:59 | disposition home or self-care (01) ==
LOC: LABSPEC 10:45
PROVIDERS: Referring Provider Nurse Practitioner Family; Visit Provider Nurse Practitioner Family
DX: R30.0 Dysuria (principal); R10.12 Left upper quadrant pain
CPT/HCPCS: 83690

== ENCOUNTER 2024-12-17 20:50 | Emergency (ER) | payer MEDICAID, SELFPAY ==
[2024-12-17 20:50] VITALS: BP 114/78; PULSE 98; RESP 16; TEMP 36.9; O2SAT 99; BMI 21.6
--- OUTSIDE RECORDS SUMMARY | 2024-12-17 23:23 | XMS RPT_ITS | CCD ---
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 - Magnesium Oxide 420 mg tab Take 1 tablet by mouth once daily. - Iron 18 mg tab Take by mouth. - PNV no.95/ferrous fum/folic ac ( ORAL) Take by mouth. Problem List As Of Date 09/14/2022 Noted Resolved Tendonitis [M77.9] 03/30/2012 08/28/2019 Congenital pes planus [Q66.50] 03/30/2012 08/28/2019 Depression [F32.A] 02/12/2014 Pain in joint, lower leg [M25.569] 03/04/2014 07/30/2019 Migraine without status migrainosus, not intrac*11/03/2015 Late care in second trimester [O09.32] 03/06/2019 07/30/2019 UTI (urinary tract infection) in , ant*03/06/2019 07/30/2019 Quit smoking [Z87.891] 03/06/2019 07/30/2019 History of depression [Z86.59] 03/06/2019 Underweight [R63.6] 04/30/2019 07/30/2019 Anemia during in second trimester [O9*05/01/2019 03/28/2020 Abnormal glucose in , antepartum [O99.*05/01/2019 09/18/2019 Iron deficiency anemia secondary to inadequate *06/13/2019 03/28/2020 Iron malabsorption [K90.9] 06/13/2019 Short interval between pregnancies affecting pr*01/31/2020 03/04/2022 History of anemia [Z86.2] 01/31/2020 Family history of defects [Z82.79] 01/31/2020 Elevated glucose level [R73.09] 07/03/2020 03/04/2022 Current with history of spontaneous a*09/09/2022 Nausea and vomiting during [O21.9] 09/09/2022 Supervision of other normal , antepart*09/10/2022 Encounter Status:Closed by JEAN CLAUDE COREY on 09/14/22 Normal [facility] B-HCG SerPl-aCncon 3 HCG.beta subunit Qn 9056.0 m[IU]/mL High <5.0 [facility] Comment on above: Order Comment: Speci men Type: BLOOD SPECIMEN Ordering Facility: [facility] Address: [address] [place] [address] Result Comment: JAZMINE TITATIVE HCG NORMAL RANGES Weeks of Gestation (Weeks Since LMP) 3 Weeks (5.8-71.2 mIU/mL) 4 Weeks (9.5-750 mIU/mL) 5 Weeks (217-7138 mIU/mL) 6 Weeks (158-87943 mIU/mL) 7 Weeks (3697-183792 mIU/mL) 8 Weeks (68926-356110 mIU/mL) 9 Weeks (49888-033176 mIU/mL) 10 Weeks (92430-598281 mIU/mL) 12 Weeks (79295-659665 mIU/mL) Referenced to 4th IS of [facility] Performed By: #### 2 1198-7 #### [facility] CLIA [id number] [address] [place] [address] [place] Bacteria Ur Culton 3 Bacteria identified Cx Nom (U) ORGANISM ID: 1 10,000 -<50,000 CFU/ml Mixed microbiota No further workup. Mixed microbiota can be due to???urine???contami nation with skin bacteria at time of collection or presence of a long-term urinary catheter. If a new culture is needed, please consider re-education of the patient on proper midstream collection technique or straight catheterization for???urine???collec tion. Normal [facility] Comment on above: Performed By: #### 6 30-4 ####[facility] LABCLIA [id number] [place] [address] [place] C. trachomatis+N. gonorrhoea e DNA TIFFANIE+probe Ql (Unsp spec)on 09-10-2022 C. trachomatis DNA TIFFANIE+probe Ql (Unsp spec) Negative Normal Negative for Chlamydia trachomatis by amplificaton [facility] Comment on above: Order Comment: Speci men Type: SWABOrdering Facility: [facility] Address: [facility] [place] [address] Performed By: #### 3 6902-5, TRVAMP ####[facility] LABIA [id number] [address] OF [place] N. gonorrhoeae DNA TIFFANIE+probe Ql (Unsp spec) Negative Normal Negative for Neisseria gonorrhoeae by amplification [facility] Comment on above: Order Comment: Speci men Type: SWABOrdering Facility: [facility] Address: [address] [place] [address] Performed By: #### 3 6902-5, TRVAMP ####[facility] LABIA [id number] [address] OF [place] T VAGINALIS AMPLIFICATIONon 09-10-2022 T. vaginalis DNA TIFFANIE+probe Ql (Unsp spec) Negative Normal Negative for Trichomonas vaginalis by amplification [facility] Comment on above: Order Comment: Speci men Type: SWABOrdering Facility: [facility] Address: [address] [place] [address] Performed By: #### 3 6902-5, TRVAMP ####[facility] LABIA [id number] [address] OF [place] CNNURSEon 09-09-2022 CNNURSE Nurse Visit (OBGYWM) LUTHER WILLIS ([id number]) 2000 F Date Time Provider Department 09/09/22 3:00 PM NURSE PNOB [facility] WSTR OBGYWM During your visit today, we recorded the following information about you: Last Period 07/27/22 Sunil Garza RN 09/09/2022 4:28 PM Signed Luther Willis is a 22 year old female seen for PNOB visit.She is 4 para 2 with a history of a miscarriage February 2022. Pt has a history of depression diagnosed in 2014. She has been off medication since 2015. She believes she is doing well off medication. Patient states [facility] Discussed increased risks of depression during and and importance of reporting the development or worsening of symptoms should they occur.Pt denies ever having any suicidal thoughts or tendencies or thoughts of hurting others. Patient has a history of anemia with her previous . She was treated with IV iron infusions. She is currently taking an iron supplement. Patient is complaining of nausea and occasional vomiting in . Dietary considerations discussed . Vitamin B6 recommended. Advised patient to call/come in if she is unable to keep any food or fluids down in a 24-hour period. Patient's second cousin with Down syndrome. Patient's father born with hole in heart. No corrective surgery was done. Patient declines aneuploidy screening. Considering genetic carrier screening testing. Contact information for [email or web address] [facility] given to patient to check on insurance coverage. Sunil Garza RN Referring Provider: LEANN GILL [[id number]] Allergies As of Date: 09/09/2022 Noted Allergy Reaction PENICILLINS 07/26/2011 4 - Hives Date Reviewed: 09/01/2022 Reviewed by: Leann Gill APRN.CNM - Fully Assessed Reason for Visit: Care [86] Primary Visit Diagnosis:Current with history of spontaneous during prior [O09.299] Other Visit Diagnoses:History of depression [Z86.59] History of anemia [Z86.2] Nausea and vomiting during [O21.9] Prescriptions as of 09/09/2022 - Iron 18 mg tab Take by mouth. - ondansetron (ZOFRAN) 4 mg tablet Take 1 tablet by mouth every 8 hours as needed for nausea/vomiting. - PNV no.95/ferrous fum/folic ac ( ORAL) Take by mouth. Problem List As Of Date 09/09/2022 Noted Resolved Tendonitis [M77.9] 03/30/2012 08/28/2019 Congenital pes planus [Q66.50] 03/30/2012 08/28/2019 Depression [F32.A] 02/12/2014 Pain in joint, lower leg [M25.569] 03/04/2014 07/30/2019 Migraine without status migrainosus, not intrac*11/03/2015 Late care in second trimester [O09.32] 03/06/2019 07/30/2019 UTI (urinary tract infection) in , ant*03/06/2019 07/30/2019 Quit smoking [Z87.891] 03/06/2019 07/30/2019 History of depression [Z86.59] 03/06/2019 Underweight [R63.6] 04/30/2019 07/30/2019 Anemia during in second trimester [O9*05/01/2019 03/28/2020 Abnormal glucose in , antepartum [O99.*05/01/2019 09/18/2019 Iron deficiency anemia secondary to inadequate *06/13/2019 03/28/2020 Iron malabsorption [K90.9] 06/13/2019 Short interval between pregnancies affecting pr*01/31/2020 03/04/2022 History of anemia [Z86.2] 01/31/2020 Family history of defects [Z82.79] 01/31/2020 Elevated glucose level [R73.09] 07/03/2020 03/04/2022 Current with history of spontaneous a*09/09/2022 Nausea and vomiting during [O21.9] 09/09/2022 Disposition: Return in 1 day (on 09/10/2022) for New OB with Dr. Sales. 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 Luther is a 22 year old who presents for an annual gynecologic exam without complaints. LMP 07/27/22 and missed last month. Took 2 HPT and had 1 positive and 1 negative result. Desires . Menses: cycles every 28 days and lasting 4-5 days of flow. 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 History LMP: 07/27/2022, Unknown Age at Menarche: Age at First : Age at Menopause: Cafeteria Associate History Comments: Sexual Activity: Yes; Male Contraception: No contraception data on record PAST MEDICAL HISTORY Diagnosis Date Anemia Arthritis hips Congenital pes planus 03/30/2012 mastitis with Mental disorder Migraine without status migrainosus, not intractable 11/03/2015 Tendonitis 03/30/2012 PAST SURGICAL HISTORY Procedure Laterality Date NONE FAMILY HISTORY Problem Relation Age of Onset No Known Problems Mother Asthma Father No Known Problems Sister No Known Problems Sister No Known Problems Sister No Known Problems Sister No Known Problems Brother No Known Problems Brother Breast Cancer Maternal Grandmother Heart Failure Maternal Grandmother Heart Maternal Grandfather Hypertension Paternal Grandmother COPD Paternal Grandmother Diabetes Paternal Grandfather Cancer Paternal Grandfather Hypertension Paternal Grandfather Heart Paternal Uncle 30 pacemaker No Known Problems Son SOCIAL HISTORY Social History Tobacco Use Smoking status: Former Years: 1.00 Types: Cigarettes Quit date: 02/27/2019 Years since quittin.5 Smokeless tobacco: Never Tobacco comments: vaping Vaping Use Vaping Use: Former Substance Use Topics Alcohol use: Not Currently Drug use: Never REVIEW OF SYSTEMS Abdomen: No abdominal pain, vomiting, diarrhea. Positive for nausea, constipation and emesis x couple of times. No bloating, early satiety, indigestion, or increased flatulence. Bladder: No dysuria, gross hematuria, urinary frequency, urinary urgency, or incontinence. Breast: No breast lumps, nipple d/c, overlying skin changes, redness or skin retraction and breast tenderness. Allergies and current medication updated:Yes EXAM: BP 84/50 Ht 5' 3.5 (1.61m) Wt 110 lb (49.9kg) LMP 07/27/2022 BMI 19.18 kg/(m2). GENERAL: pleasant, female in no apparent distress HEENT: Normocephalic, atraumatic, mucus membranes moist, and no lesions NECK: Supple, full range of motion, no adenopathy, and thyroid normal DERMATOLOGY: Normal and without lesions BREAST: soft, non-tender, symmetric, no dominant mass, normal nipple-areolar complex, no lymphadenopathy, and no nipple discharge CHEST: Normal inspiratory effort ABDOMEN: soft, non-tender, and no masses PELVIC: external genitalia normal, normal Bartholin's glands, urethra, Fitzgerald's glands, no vulvar lesions, no cervical lesions, good vaginal support, physiologic discharge present, normal appearing perineal body and perianal region BIMANUAL: uterus normal size, shape and consistency, no adnexal masses, non-tender, and no cervical motion tenderness RECTOVAGINAL: deferred. NEURO: alert and oriented x3,exam grossly non-focal EXTREMITIES: normal ASSESSMENT/PLAN: 1) Health maintenance: Pap/HPV up to date. 2) Contraception: none- Desires - HCG urine - POSITIVE - Start vitamins daily 3) STD screening: Declined STD check. 4) Follow up 3-4 weeks for PNOB and NOB Leann Gill APRN.CNM Allergies As of Date: 09/01/2022 Noted Allergy Reaction PENICILLINS 07/26/2011 4 - Hives Date Reviewed: 09/01/2022 Reviewed by: Leann Gill APRN.CNM - Fully Assessed Reason for Visit: Well Woman [1463] Primary Visit Diagnosis:Encounter for gynecological examination (general) (routine) without abnormal findings [Z01.419] Other Visit Diagnosis:Missed menses [N92.6] Order(s):HCG QUAL UR B/O [2309516] Order #: [id number] Prescriptions as of 09/01/2022 - ondansetron (ZOFRAN) 4 mg tablet Take 1 tablet by mouth every 8 hours as needed for nausea/vomiting. - PNV no.95/ferrous fum/folic ac ( ORAL) Take by mouth. Problem List As Of Date 09/01/2022 Noted Resolved Tendonitis [M77.9] 03/30/2012 08/28/2019 Congenital pes planus [Q66.5 (more content not included)... Normal [facility] HCG QUAL UR B/Oon 09-01-2022 status Positive neg - pos Kellen salas [facility] Quality Check Yes [facility] CNOVon 03-12-2022 CNOV Office Visit (OBGYWM) LUTHER WILLIS ([id number]) 2000 F Date Time Provider Department 03/12/22 2:50 PM CHUYITA GENAO OBADRIANEWJune During your visit today, we recorded the following information about you: Blood pressure Weight 98/60 44.5 kg Chuyita May MD 03/12/2022 2:51 PM Signed SUBJECTIVE: 22 year old female presents for 1 week post-op exam. Pt reports is doing well. Pt reports dull aching pain at times on right lower abdomen but no fever or dysuria. Pt reports minimal bleeding. OBJECTIVE: Incision: None Abdomen: Soft, Non-tender, and No palpable masses PLAN: RTO for annual exams and PRN Declines contraception. Advised on menses after missed ab- pt reports irregular cycles typical Pathology pending Continue PNV reviewed I have reviewed and updated past medical and surgical history, medications and allergies. Chuyita May MD Allergies As of Date: 03/12/2022 Noted Allergy Reaction PENICILLINS 07/26/2011 4 - Hives Date Reviewed: 03/12/2022 Reviewed by: Екатерина Spann Ma - Fully Assessed Reason for Visit: Follow Up [171] Primary Visit Diagnosis:History of miscarriage [Z87.59] Other Visit Diagnosis:Post-opera tive state [Z98.890] Prescriptions as of 03/12/2022 - ondansetron (ZOFRAN) 4 mg tablet Take 1 tablet by mouth every 8 hours as needed for nausea/vomiting. - PNV no.95/ferrous fum/folic ac ( ORAL) Take by mouth. Problem List As Of Date 03/12/2022 Noted Resolved Tendonitis [M77.9] 03/30/2012 08/28/2019 Congenital pes planus [Q66.50] 03/30/2012 08/28/2019 Depression [F32.A] 02/12/2014 Pain in joint, lower leg [M25.569] 03/04/2014 07/30/2019 Migraine without status migrainosus, not intrac*11/03/2015 Late care in second trimester [O09.32] 03/06/2019 07/30/2019 UTI (urinary tract infection) in , ant*03/06/2019 07/30/2019 Quit smoking [Z87.891] 03/06/2019 07/30/2019 History of depression [Z86.59] 03/06/2019 03/04/2022 Underweight [R63.6] 04/30/2019 07/30/2019 Anemia during in second trimester [O9*05/01/2019 03/28/2020 Abnormal glucose in , antepartum [O99.*05/01/2019 09/18/2019 Iron deficiency anemia secondary to inadequate *06/13/2019 03/28/2020 Iron malabsorption [K90.9] 06/13/2019 Short interval between pregnancies affecting pr*01/31/2020 03/04/2022 History of anemia [Z86.2] 01/31/2020 03/04/2022 Family history of defects [Z82.79] 01/31/2020 03/04/2022 Elevated glucose level [R73.09] 07/03/2020 03/04/2022 Encounter Status:Closed by CHUYITA MASTERS on 03/12/22 Normal [facility] AP SENDOUTSon 03-04-2022 AP SENDOUTS Normal [facility] Comment on above: Order Comment: Speci men Type: BLOOD SPECIMEN Ordering Facility: [facility] Address: [address] [place] [address] Result Comment: At t he request of Dr. Farhana Sanabria, blocks A1 and A2 of this case were sent to [facility] for genotyping and the results will be available in the patient's EMR when complete. Performed By: #### 2 1198-7 #### [facility] CLIA [id number] [address] [facility] [id number] [id number] [facility] CNOVon 03-04-2022 CNOV Office Visit (OBGYWM) LUTHER WILLIS ([id number]) 2000 F Date Time Provider Department 03/04/22 10:20 AM ILIR RAMIREZ OBGYWJune During your visit today, we recorded the following information about you: Pulse Respiration Blood pressure Weight 63/minute 14/minute 92/56 44.9 kg Ilir Ramirez MD 03/04/2022 11:32 AM Signed UNIVERSAL PROTOCOL / SAFETY CHECKLIST Procedure to be Performed: IPAS for missed spontaneous Sign In: A Moment of CARE was completed. Personnel directly involved with the procedure wore the appropriate PPE (Personal Protective Equipment). Patient/Surrogate Stated/Verified: PATIENT VERIFIED(optional for EMERGENT procedures): Patient name, Date of , Relevant allergies, and The intended procedure Time Out Communication: Intended patient and procedure match the source documents. Consent documented and matches the intended procedure. Relevant labs, photos, and/or imaging studies have been reviewed. No implant(s) inserted. Brief transvaginal ultrasound was performed which revealed an intrauterine very gestational sac with some debris. Possible yolk sac with possible small embryonic pole less than 5 mm in size with no cardiac activity. Sign Out: SIGN OUT (optional for EMERGENT procedures): All specimen containers correctly labeled. All instruments, equipment, possible retained foreign bodies accounted for. Post-procedure follow-up management communicated and Plan of Care Visit completed when applicable. Ilir Ramirez MD Procedure note: Speculum was placed in the vagina. After prepping the cervix with betadine paracervical block was performed using 10cc of 1% lidocaine with 1:100,000 epi. Cervix was grasped with single tooth tenaculum. Cervix was dilated. Using sterile technique, the Manual Vacuum Aspiration device with size 8 cannula was inserted into the uterus and contents were evacuated. Post-procedure ultrasound confirmed no retained tissue. Post-procedure vital signs were obtained and stable Specimen was sent to pathology Patient tolerated procedure well. PLAN: Patient was advised to observe for signs and symptoms of infection including but not limited to fever, malodorous vaginal discharge and/or pain. Bleeding expectations were reviewed. Follow up: 1-2 weeks or prn. Uncertain of contraception plans MD Natalie Haro RN 03/04/2022 9:19 AM Signed Information and Instructions: After a Manual Uterine Aspiration (IPAS) Procedure Bleeding Most people have some bleeding after an aspiration procedure. The amount differs for each everyone, ranging from no bleeding to moderate period-like bleeding and lasting for a few days to 2-6 weeks. It is normal to have blood clots when you stand up or use the bathroom during the first few days. It is ok to be as active as you feel ready to be. You may notice more bleeding and cramping during activity. Please call if you are completely soaking through a pad every hour for 2 hours, or passing multiple large clots or larger and larger clots. Cramping Most women have some cramping after the procedure. The amount of discomfort varies, as everyone experiences pain in a different way. Some women find that a heating pad or hot water bottle on the stomach or back helps. If you don?t have a heating pad, put some rice into a sock and heat it in the microwave, but beware, it?s hot! You may also take ibuprofen (Motrin/ Advil) or naproxen (Aleve). If you can?t take either of those medications you may use acetaminophen (Tylenol). Please call if you have severe pain or cramps that are not relieved by the pain medication. Fever Please call if your temperature is 100.4 degrees or higher for more than 2 hours. Fever can be a sign of infection, so call your doctor if you are feeling sick. You may have received a medication called misoprostol, which can cause a fever on the day of your procedure that goes away on it's own and is not concerning. symptoms You may have symptoms such as nausea, breast tenderness, or fatigue that last for a few days after the procedure. You may also notice some nipple discharge or breast swelling. If this occurs, wear a supportive bra and avoid stimulation. You may also use a cold compress. Your test may remain positive for up to 4 weeks. Please call if you have symptoms that last longer than 7 - 10 days. control For most people, it is physically possible (though unlikely) to become in the next 2 - 4 weeks, so it is important to start a control method if you are not planning a right away. Please discuss this with your provider if you have not already chosen a method. If you would like to become soon after this procedure, please discuss this with your doctor. Follow up Most women do not n (more content not included)... Normal [facility] SURGICAL PATHOLOGYon 022 ADDENDUM 1: Normal [facility] Comment on above: Order Comment: Speci maryanne Type: BLOOD SPECIMEN Ordering Facility: [facility] Address: [address] [place] [address] Result Comment: The genotyping results are consistent with a non molar gestation (see report [id number]). Addendum electronically signed by Farhana Sanabria MD on 03/16/2022 at 3:19 PM Performed By: #### 2 1198-7 #### [facility] CLIA [id number] [address] [facility] [address] [facility] CASE REPORT Normal [facility] Comment on above: Order Comment: Yamileth madden Type: BLOOD SPECIMEN Ordering Facility: [facility] Address: [address] [place], [place] [address] Result Comment: Surg ica Pathology Report Case: [id number] Authorizing Provider: Ilir Ramirez MD Collected: 03/04/2022 11:21 AM Ordering Location: OB/Gynecology Received: 03/04/2022 04:53 PM Pathologist: Farhana Sanabria MD Specimen: PRODUCTS OF CONCEPTION Performed By: #### 2 1198-7 #### [facility] CLIA [id number] [facility] [address] CLINICAL HISTORY missed ab Normal [facility] Comment on above: Order Comment: Speci men Type: BLOOD SPECIMEN Ordering Facility: [facility] Address: [address] [place] [address] Performed By: #### 2 1198-7 #### [facility] CLIA [id number] DIAGNOSIS COMMENT Many of the chorionic villi are significantly enlarged, hydropic and have irregular villous contours with frequent villous inclusions. Some of the villi show circumferential trophoblastic proliferation in the form of scattered trophoblast twigs surrounding the villi. Although no tissue is identified, nucleated red blood cells are seen, which helps exclude the possibility of a complete mole. However the possibility of a partial hydatidiform mole remains and the specimen will be sent for genotyping and these results will be reported in an addendum. Normal [facility] Comment on above: Order Comment: Yamileth madden Type: BLOOD SPECIMEN Ordering Facility: [facility] Address: [address] [place] [address] Performed By: #### 2 1198-7 #### [facility] CLIA [id number] [address] [place] [address] FINAL DIAGNOSIS Normal [facility] Comment on above: Order Comment: Rodolfoi maryanne Type: BLOOD SPECIMEN Ordering Facility: [facility] Address: [address] [address] Result Comment: Uter us, products of conception, dilation and curettage: Abnormal villous morphology; see comment. Performed By: #### 2 1198-7 #### [facility] CLIA [id number] [facility] [address] FINAL PERFORMING LAB Normal [facility] Comment on above: Order Comment: Speci men Type: BLOOD SPECIMEN Ordering Facility: [facility] Address: [address] [place] [address] Result Comment: Diag nostic interpretation performed at [facility], [address] [place] [address] CLIA# [id number] Roof Mechanic: Nghia Lui M.D. Performed By: #### 2 1198-7 #### [facility] CLIA [id number] [address] [place] [address] OF [facility] GROSS DESCRIPTION Normal [facility] Comment on above: Order Comment: Speci men Type: BLOOD SPECIMEN Ordering Facility: [facility] Address: [address] [place] [address] Result Comment: A. P RODUCTS OF CONCEPTION Received in formalin labeled as products of conception are multiple segments of price-carter soft tissue aggregating to 8 x 7 x 2.2 cm. Examination of the specimen demonstrates pink spongy chorionic villi. parts and vesicles are not present. [employer] sections are submitted in A1-A3. TN/kr 03/05/2022 Gross examination performed at [facility], [address] [place] [address] CLIA# [id number] Performed By: #### 2 1198-7 #### [facility] CLIA [id number] [address] [place] [address] OF [facility] CNOVon 03-02-2022 CNOV Office Visit (OBGYWM) LUTHER WILLIS ([id number]) 2000 F Date Time Provider Department 03/02/22 11:00 AM TERESA SALES During your visit today, we recorded the following information about you: Temperature Blood pressure Weight 98.2 degrees 92/60 45.2 kg Teresa Sales MD 03/02/2022 1:13 PM Signed See other note Teresa Sales MD 03/02/2022 1:13 PM Signed Luther Willis is a 22 year old female who presents for missed . HPI: Patient presents with missed . She denies vaginal bleeding or pelvic pain. 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 History Comments: Sexual Activity: Yes; Male Contraception: No contraception data on record PAST MEDICAL HISTORY Diagnosis Date Anemia Arthritis hips Congenital pes planus 03/30/2012 mastitis with Mental disorder Migraine without status migrainosus, not intractable 11/03/2015 Tendonitis 03/30/2012 PAST SURGICAL HISTORY Procedure Laterality Date NONE FAMILY HISTORY Problem Relation Age of Onset No Known Problems Mother Asthma Father No Known Problems Sister No Known Problems Sister No Known Problems Sister No Known Problems Sister No Known Problems Brother No Known Problems Brother Breast Cancer Maternal Grandmother Heart Failure Maternal Grandmother Heart Maternal Grandfather Hypertension Paternal Grandmother COPD Paternal Grandmother Diabetes Paternal Grandfather Cancer Paternal Grandfather Hypertension Paternal Grandfather Heart Paternal Uncle 30 pacemaker No Known Problems Son Social History Tobacco Use Smoking status: Former Years: 1.00 Types: Cigarettes Quit date: 02/27/2019 Years since quittin.0 Smokeless tobacco: Never Tobacco comments: vaping Vaping Use Vaping Use: Never used Substance Use Topics Alcohol use: Not Currently Drug use: Never Current Outpatient Medications Medication Sig ondansetron (ZOFRAN) 4 mg tablet Take 1 tablet by mouth every 8 hours as needed for nausea/vomiting. PNV no.95/ferrous fum/folic ac ( ORAL) Take by mouth. ALPRAZolam (XANAX) 0.5 mg tablet Take 1 tablet by mouth twice daily as needed for up to 1 day. Take prior to procedure. doxycycline hyclate (VIBRAMYCIN) 100 mg capsule Take 2 capsules by mouth one time only for 1 dose. After the procedure. oxyCODONE IR (ROXICODONE) 5 mg immediate release tablet Take 1 tablet by mouth every 8 hours as needed for pain for up to 1 day. Take prior to procedure. Current Facility-Administere d Medications Medication Dose Route Frequency keTORolac 30 mg injection (TORADOL) 30 mg INTRAMUSCULAR ONCE Allergies As of Date: 03/02/2022 Allergen Noted Reaction PENICILLINS 07/26/2011 Hives Fully Assessed 03/02/2022 Allergies and current medication updated:Yes EXAM: BP 92/60 Temp (Src) 98.2 (Left Tympanic) Wt 99 lb 9.6 oz (45.2kg) GENERAL: pleasant, female in no apparent distress PELVIC: external genitalia normal, no vulvar lesions, normal appearing perineal body and perianal region 22yo female with missed Repeat pelvic US today again shows IUP with CRL measuring @ 6AND2 with no FCA. Again this is consistent with a missed . Patient counseling on R/B/A of medical vs surgical treatment options. She wishes to proceed with in off IPAS with this . All questions answered AND medications sent to pharmacy. Patient aware to bring them all with her on . Medical Decision Making: Problems: Low: Acute, uncomplicated illness or injury Data: Unique test result(s) reviewed: 3+ Risk: Moderate: Moderate risk from testing/treatment and Drug management Medical Decision Making Level: 4 - Moderate MD Natalie Rogers RN 03/02/2022 11:20 AM Signed Preparing for Your Procedure - Manual Vacuum Aspiration (MVA) or ?Ipas? procedure What is it? This is a simple procedure that uses suction to remove tissue or blood clots from the uterus. A local pain medication is used to numb the cervix and medicines to reduce pain and anxiety may also be offered. A cannula is a thin tube that is guided through the cervical opening into the uterus. A handheld suction device is attached to the tube and together they are used to remove the contents of the uterus. It takes less than ten minutes. When is the procedure done? This procedure is used to remove tissue when a person has experienced a miscarriage. It is sometimes used to help doctors diagnose the location of tissue (inside the uterus or not). It is also sometimes used to clear blood clots from the uterus in someone bleeding heavily. Is it safe? Yes, the procedure is safe. Having this procedure done does not lo (more content not included)... Normal [facility] [place] [facility] LUTHER WILLIS ([id number]) 2000 F Date Time Provider Department 02/23/22 ILIR RAMIREZ OBADRIANEWJune During your visit today, we recorded the following information about you: Yue Donald RN 02/23/2022 3:10 PM Signed ----- Message from Ilir Ramirez MD sent at 02/23/2022 12:04 PM EDT ----- Please call patient on 02/24 if we haven't heard from her to see if she has decided how she wants to proceed. She may need appointment to discuss further. Thanks. MD Martha Haro RN 02/24/2022 10:15 AM Signed Called and spoke with patient to inquire how she would like to proceed. Patient would like to allow her body to go naturally. Declines wanting medication to assist. Declines needing an appointment to discuss her options further. Martha Ramirez MD 02/24/2022 11:26 AM Signed NOted. Please schedule her a follow up w/ a provider in approx 2 weeks or tell her to contact us if she has other concerns in the interim. Review bleeding precautions. Thanks. MD Martha Haro RN 02/24/2022 11:53 AM Signed Reviewed bleeding precautions. Follow up scheduled for 03/11/22 with DM. Advised patient to call and notify the office if she starts bleeding or has other concerns. Martha Jay RN Allergies As of Date: 02/23/2022 Noted Allergy Reaction PENICILLINS 07/26/2011 4 - Hives Date Reviewed: 02/18/2022 Reviewed by: Teresa Sales MD - Fully Assessed Reason for Visit: Follow Up [171] Prescriptions as of 02/24/2022 - PNV no.95/ferrous fum/folic ac ( ORAL) Take by mouth. Problem List As Of Date 02/23/2022 Noted Resolved Tendonitis [M77.9] 03/30/2012 08/28/2019 Congenital pes planus [Q66.50] 03/30/2012 08/28/2019 Depression [F32.A] 02/12/2014 Pain in joint, lower leg [M25.569] 03/04/2014 07/30/2019 Migraine without status migrainosus, not intrac*11/03/2015 Late care in second trimester [O09.32] 03/06/2019 07/30/2019 UTI (urinary tract infection) in , ant*03/06/2019 07/30/2019 Quit smoking [Z87.891] 03/06/2019 07/30/2019 History of depression [Z86.59] 03/06/2019 Underweight [R63.6] 04/30/2019 07/30/2019 Anemia during in second trimester [O9*05/01/2019 03/28/2020 Abnormal glucose in , antepartum [O99.*05/01/2019 09/18/2019 Iron deficiency anemia secondary to inadequate *06/13/2019 03/28/2020 Iron malabsorption [K90.9] 06/13/2019 Short interval between pregnancies affecting pr*01/31/2020 History of anemia [Z86.2] 01/31/2020 Family history of defects [Z82.79] 01/31/2020 Elevated glucose level [R73.09] 07/03/2020 Encounter Status:Closed by MARTHA JAY RN on 02/24/22 [facility] CNOVvan 02-22-2022 CNOV Office Visit (OBGYWM) LUTHER WILLIS ([id number]) 2000 F Date Time Provider Department 02/22/22 2:30 PM CHUYITA GENAO OBGYWM During your visit today, we recorded the following information about you: Blood pressure Weight 98/56 45.4 kg Chuyita May MD 02/22/2022 5:01 PM Signed Luther Willis is a 22 year old female who presents for follow-up early . Patient was seen last week by Dr. Vannesa Sales noted to be 6 weeks 3 days with no cardiac activity. Patient had a repeat ultrasound today where the pole is measuring the same with no cardiac activity appreciated despite rising hCG levels. Patient denies any pelvic pain or vaginal bleeding. Patient is aware that this was likely a nonviable . Patient offers no other concerns at this time. 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 History Comments: Sexual Activity: Yes; Male Contraception: No contraception data on record PAST MEDICAL HISTORY Diagnosis Date Anemia Arthritis hips Congenital pes planus 03/30/2012 mastitis with Mental disorder Migraine without status migrainosus, not intractable 11/03/2015 Tendonitis 03/30/2012 PAST SURGICAL HISTORY Procedure Laterality Date NONE FAMILY HISTORY Problem Relation Age of Onset No Known Problems Mother Asthma Father No Known Problems Sister No Known Problems Sister No Known Problems Sister No Known Problems Sister No Known Problems Brother No Known Problems Brother Breast Cancer Maternal Grandmother Heart Failure Maternal Grandmother Heart Maternal Grandfather Hypertension Paternal Grandmother COPD Paternal Grandmother Diabetes Paternal Grandfather Cancer Paternal Grandfather Hypertension Paternal Grandfather Heart Paternal Uncle 30 pacemaker No Known Problems Son Social History Tobacco Use Smoking status: Former Years: 1.00 Types: Cigarettes Quit date: 02/27/2019 Years since quittin.9 Smokeless tobacco: Never Tobacco comments: vaping Vaping Use Vaping Use: Never used Substance Use Topics Alcohol use: Not Currently Drug use: Never Current Outpatient Medications Medication Sig PNV no.95/ferrous fum/folic ac ( ORAL) Take by mouth. No current facility-administere d medications for this visit. Allergies As of Date: 02/22/2022 Allergen Noted Reaction PENICILLINS 07/26/2011 Hives Fully Assessed 02/18/2022 REVIEW OF SYSTEMS Abdomen: no pain Bladder: no dysuria .. Expanded ROS: no fever Allergies and current medication updated:Yes EXAM: BP 98/56 Wt 100 lb (45.4kg) GENERAL: pleasant, female in no apparent distress HEENT: Normocephalic and atraumatic NECK: full range of motion DERMATOLOGY: Normal, without lesions, non-icteric, and non-hirsute NEURO: alert and oriented x3,exam grossly non-focal EXTREMITIES: normal ASSESSMENT AND PLAN: Encounter Diagnosis ICD-10-CM 1. Missed O02.1 2. hCG levels reviewed although trending up official ultrasounds are consistent with a missed AB approximately 6 weeks 3 days. Patient was counseled on the findings today she was also counseled on the risk benefits and alternatives of treatment for missed AB including expectant management versus medical management with Cytotec versus surgical management. Patient is unsure what she wants to do at this time and would like to think about it and will notify the office. Emotional support given- support person is present. 3. Labs and ultrasounds reviewed. Medical Decision Making: Problems: Moderate: New problem with uncertain prognosis Data: Unique test result(s) reviewed: 2 Risk: Moderate: Moderate risk from testing/treatment Medical Decision Making Level: 4 - Moderate Chuyita May MD Allergies As of Date: 02/22/2022 Noted Allergy Reaction PENICILLINS 07/26/2011 4 - Hives Date Reviewed: 02/18/2022 Reviewed by: Teresa Sales MD - Fully Assessed Reason for Visit: Follow Up [171] Primary Visit Diagnosis:Missed [O02.1] Prescriptions as of 02/22/2022 - PNV no.95/ferrous fum/folic ac ( ORAL) Take by mouth. Problem List As Of Date 02/22/2022 Noted Resolved Tendonitis [M77.9] 03/30/2012 08/28/2019 Congenital pes planus [Q66.50] 03/30/2012 08/28/2019 Depression [F32.A] 02/12/2014 Pain in joint, lower leg [M25.569] 03/04/2014 07/30/2019 Migraine without status migrainosus, not intrac*11/03/2015 Late care in second trimester [O09.32] 03/06/2019 07/30/2019 UTI (urinary tract infection) in , ant*03/06/2019 07/30/2019 Quit smoking [Z87.891] 03/06/2019 07/30/2019 History of depression [Z86.59] 03/06/2019 Underweight [R63.6] 04/30/2019 07/30/2019 Anemia (more content not included)... Normal [facility] CNPNon 02-19-2022 CNPN Telephone (OBGYWM) LUTHER WILLIS ([id number]) 2000 F Date Time Provider Department 02/19/22 ILIR RAMIREZ OBGYWM During your visit today, we recorded the following information about you: Natalie Candelaria RN 02/19/2022 8:15 AM Signed Please review hcg quant for KJ. hCG Quantitative, Blood Date Value 02/18/2022 95,009.0 mIU/mL 02/15/2022 87,955.0 mIU/mL Natalie Ramirez MD 02/19/2022 10:51 AM Signed hormone level going up. Recommend repeat US next week. Formal US ordered. Schedule early next week and doc appointment so can discuss options if miscarriage diagnosed. MD Martha Haro RN 02/19/2022 11:07 AM Signed Dating US and visit with DM scheduled for Tuesday. Martha Jay RN Allergies As of Date: 02/19/2022 Noted Allergy Reaction PENICILLINS 07/26/2011 4 - Hives Date Reviewed: 02/18/2022 Reviewed by: Teresa Sales MD - Fully Assessed Reason for Visit: Results [95] Primary Visit Diagnosis: with uncertain dates in first trimester [Z34.91] Order(s):OBSTETRIC ULTRASOUND [facility] [[id number]] Order #: [id number]: 1 Prescriptions as of 02/19/2022 - PNV no.95/ferrous fum/folic ac ( ORAL) Take by mouth. Problem List As Of Date 02/19/2022 Noted Resolved Tendonitis [M77.9] 03/30/2012 08/28/2019 Congenital pes planus [Q66.50] 03/30/2012 08/28/2019 Depression [F32.A] 02/12/2014 Pain in joint, lower leg [M25.569] 03/04/2014 07/30/2019 Migraine without status migrainosus, not intrac*11/03/2015 Late care in second trimester [O09.32] 03/06/2019 07/30/2019 UTI (urinary tract infection) in , ant*03/06/2019 07/30/2019 Quit smoking [Z87.891] 03/06/2019 07/30/2019 History of depression [Z86.59] 03/06/2019 Underweight [R63.6] 04/30/2019 07/30/2019 Anemia during in second trimester [O9*05/01/2019 03/28/2020 Abnormal glucose in , antepartum [O99.*05/01/2019 09/18/2019 Iron deficiency anemia secondary to inadequate *06/13/2019 03/28/2020 Iron malabsorption [K90.9] 06/13/2019 Short interval between pregnancies affecting pr*01/31/2020 History of anemia [Z86.2] 01/31/2020 Family history of defects [Z82.79] 01/31/2020 Elevated glucose level [R73.09] 07/03/2020 Encounter Status:Closed by MARTHA JAY RN on 02/19/22 Normal [facility] 2 [place] [address].0 m[IU]/mL High <5.0 [facility] Comment on above: Order Comment: Speci men Type: BLOOD SPECIMENOrdering Facility: [facility] Address: [address] [place] [address] [place] [address] Result Comment: JAZMINE TITATIVE HCG NORMAL RANGES Weeks of Gestation (Weeks Since LMP) 3 Weeks (5.8-71.2 mIU/mL) 4 Weeks (9.5-750 mIU/mL) 5 Weeks (217-7138 mIU/mL) 6 Weeks (158-18220 mIU/mL) 7 Weeks (3697-036522 mIU/mL) 8 Weeks (18895-071770 mIU/mL) 9 Weeks (49334-331288 mIU/mL) 10 Weeks (36892-955623 mIU/mL) 12 Weeks (08097-511708 mIU/mL) Referenced to 4th IS of [facility] Performed By: #### 2 1198-7 ####[facility]IA [id number] [facility] [id number] [id number] [facility] CNOVon 02-18-2022 CNOV Office Visit (OBGYWM) WILLISLUTHER GARNETT ([id number]) 2000 F Date Time Provider Department 02/18/22 4:10 PM TERESA SALES OBREY During your visit today, we recorded the following information about you: Blood pressure Weight 100/56 45.9 kg Teresa Sales MD 02/18/2022 5:02 PM Signed Snell Nancy IveyWillis is a 22 year old female who presents for follow up. HPI: Patient presents to discuss US and lab results. She denies complaints today. 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 History Comments: Sexual Activity: Yes; Male Contraception: No contraception data on record PAST MEDICAL HISTORY Diagnosis Date Anemia Arthritis hips Congenital pes planus 03/30/2012 mastitis with Mental disorder Migraine without status migrainosus, not intractable 11/03/2015 Tendonitis 03/30/2012 PAST SURGICAL HISTORY Procedure Laterality Date NONE FAMILY HISTORY Problem Relation Age of Onset No Known Problems Mother Asthma Father No Known Problems Sister No Known Problems Sister No Known Problems Sister No Known Problems Sister No Known Problems Brother No Known Problems Brother Breast Cancer Maternal Grandmother Heart Failure Maternal Grandmother Heart Maternal Grandfather Hypertension Paternal Grandmother COPD Paternal Grandmother Diabetes Paternal Grandfather Cancer Paternal Grandfather Hypertension Paternal Grandfather Heart Paternal Uncle 30 pacemaker No Known Problems Son Social History Tobacco Use Smoking status: Former Years: 1.00 Types: Cigarettes Quit date: 02/27/2019 Years since quittin.9 Smokeless tobacco: Never Tobacco comments: vaping Vaping Use Vaping Use: Never used Substance Use Topics Alcohol use: Not Currently Drug use: Never Current Outpatient Medications Medication Sig PNV no.95/ferrous fum/folic ac ( ORAL) Take by mouth. No current facility-administere d medications for this visit. Allergies As of Date: 02/18/2022 Allergen Noted Reaction PENICILLINS 07/26/2011 Hives Fully Assessed 02/18/2022 Allergies and current medication updated:Yes EXAM: BP 100/56 Wt 101 lb 3.2 oz (45.9kg) GENERAL: pleasant, female in no apparent distress ASSESSMENT AND PLAN: 22yo female with early US on 02/15 showed IUP measuring 6AND3 with no FCA. HCG quant reviewed. Plan for repeat hcg quant and management based on that. If increasing will check repeat US next week. If decreasing patient aware it will confirm a missed . Discussed R/B/A of treatment options if hcg quant confirms missed and patient would likely want to proceed with cytotec. Bleeding precautions reviewed AND all questions answered. Medical Decision Making: Problems: Moderate: New problem with uncertain prognosis Data: Unique test result(s) reviewed: 2 Unique test(s) ordered: 1 Risk: Low: Low risk from testing/treatment Medical Decision Making Level: 4 - Moderate Teresa Sales MD Referring Provider: SELF [200] Allergies As of Date: 02/18/2022 Noted Allergy Reaction PENICILLINS 07/26/2011 4 - Hives Date Reviewed: 02/18/2022 Reviewed by: Teresa Sales MD - Fully Assessed Reason for Visit: Follow Up [171] Primary Visit Diagnosis: at early stage [Z34.90] Order(s):HCG QUANTITATIVE [SQHCGQT] Order #: [id number] FUTURE Prescriptions as of 02/18/2022 - PNV no.95/ferrous fum/folic ac ( ORAL) Take by mouth. Problem List As Of Date 02/18/2022 Noted Resolved Tendonitis [M77.9] 03/30/2012 08/28/2019 Congenital pes planus [Q66.50] 03/30/2012 08/28/2019 Depression [F32.A] 02/12/2014 Pain in joint, lower leg [M25.569] 03/04/2014 07/30/2019 Migraine without status migrainosus, not intrac*11/03/2015 Late care in second trimester [O09.32] 03/06/2019 07/30/2019 UTI (urinary tract infection) in , ant*03/06/2019 07/30/2019 Quit smoking [Z87.891] 03/06/2019 07/30/2019 History of depression [Z86.59] 03/06/2019 Underweight [R63.6] 04/30/2019 07/30/2019 Anemia during in second trimester [O9*05/01/2019 03/28/2020 Abnormal glucose in , antepartum [O99.*05/01/2019 09/18/2019 Iron deficiency anemia secondary to inadequate *06/13/2019 03/28/2020 Iron malabsorption [K90.9] 06/13/2019 Short interval between pregnancies affecting pr*01/31/2020 History of anemia [Z86.2] 01/31/2020 Family history of defects [Z82.79] 01/31/2020 Elevated glucose level [R73.09] 07/03/2020 Encounter Status:Closed by TERESA SALES on 02/18/22 Normal [facility] [place] [address].0 m[IU]/mL High <5.0 [facility] Comment on above: Order Comment: Speci men Type: BLOOD SPECIMENOrdering Facility: [facility] Address: [address] [place] [id number] Result Comment: JAZMINE TITATIVE HCG NORMAL RANGES Weeks of Gestation (Weeks Since LMP) 3 Weeks (5.8-71.2 mIU/mL) 4 Weeks (9.5-750 mIU/mL) 5 Weeks (217-7138 mIU/mL) 6 Weeks (158-21328 mIU/mL) 7 Weeks (3697-035237 mIU/mL) 8 Weeks (24204-891619 mIU/mL) 9 Weeks (07174-218990 mIU/mL) 10 Weeks (51419-206996 mIU/mL) 12 Weeks (28038-062752 mIU/mL) Referenced to 4th IS of [facility] Performed By: #### 2 1198-7 ####[facility] LABCLIA [id number] [address] OF [facility] CNPZoya 02-15-2022 CNPN Telephone (OBGYWM) LUTHER WILLIS ([id number]) 2000 F Date Time Provider Department 02/15/22 ILIR RAMIREZ OBREY During your visit today, we recorded the following information about you: Sunil Garza RN 02/15/2022 9:53 AM Signed Patient seen today for ultrasound with uncertain dates. Please file order for quants. Keep phone note open for results. Will schedule appointment for end of week Ilir Ramirez MD 02/15/2022 10:32 AM Signed I ordered quants. Thanks Ilir Ramirez MD Allergies As of Date: 02/15/2022 Noted Allergy Reaction PENICILLINS 07/26/2011 4 - Hives Date Reviewed: 02/08/2022 Reviewed by: Meena Thorne MA - Fully Assessed Reason for Visit: threatened miscarriage [Other] Primary Visit Diagnosis:Threatened miscarriage [O20.0] Problem List As Of Date 02/15/2022 Noted Resolved Tendonitis [M77.9] 03/30/2012 08/28/2019 Congenital pes planus [Q66.50] 03/30/2012 08/28/2019 Depression [F32.A] 02/12/2014 Pain in joint, lower leg [M25.569] 03/04/2014 07/30/2019 Migraine without status migrainosus, not intrac*11/03/2015 Late care in second trimester [O09.32] 03/06/2019 07/30/2019 UTI (urinary tract infection) in , ant*03/06/2019 07/30/2019 Quit smoking [Z87.891] 03/06/2019 07/30/2019 History of depression [Z86.59] 03/06/2019 Underweight [R63.6] 04/30/2019 07/30/2019 Anemia during in second trimester [O9*05/01/2019 03/28/2020 Abnormal glucose in , antepartum [O99.*05/01/2019 09/18/2019 Iron deficiency anemia secondary to inadequate *06/13/2019 03/28/2020 Iron malabsorption [K90.9] 06/13/2019 Short interval between pregnancies affecting pr*01/31/2020 History of anemia [Z86.2] 01/31/2020 Family history of defects [Z82.79] 01/31/2020 Elevated glucose level [R73.09] 07/03/2020 Encounter Status:Closed by NATALIE CANDELARIA RN on 02/16/22 Normal [facility] C. trachomatis+N. gonorrhoea e DNA TIFFANIE+probe Ql (Unsp spec)on 02-08-2022 C. trachomatis DNA TIFFANIE+probe Ql (Unsp spec) Negative Normal Negative for Chlamydia trachomatis by amplificaton [facility] Comment on above: Order Comment: Speci men Type: SWAB Ordering Facility: [facility] Address: [address] [place] [address] Performed By: #### 3 6902-5 #### [facility] CLIA [id number] [address] [place] [address] OF [facility] N. gonorrhoeae DNA TIFFANIE+probe Ql (Unsp spec) Negative Normal Negative for Neisseria gonorrhoeae by amplification [facility] Comment on above: Order Comment: Speci men Type: SWAB Ordering Facility: [facility] Address: [address] [place] [address] Performed By: #### 3 6902-5 #### [facility] CLIA [id number] [address] [place] [address] STATES OF [facility] CNOVon 02-08-2022 CNOV Office Visit (OBGYWM) LUTHER WILLIS ([id number]) 2000 F Date Time Provider Department 02/08/22 8:15 AM LEANN GILL OBGYWM During your visit today, we recorded the following information about you: Weight Last Period 46.2 kg 11/16/21 Leann Gill APRN.CNM 02/08/2022 9:09 AM Signed Luther is a 22 year old who presents for an annual gynecologic exam without complaints. Seen at Urgent care last week and had positive test on 02/01/22. Reports unsure of last period but thinks sometime in October. not planned but accepting. Currently has 1.5 year old daughter and just stopped . Menses: Irregular - thinks last period was 11/15/21. Contraception: none HPV vaccine: Yes Last Pap: 03/20/2019 normal HPV: negative History of abnormal pap: No Last mammogram: never Sexually active: Yes History of STDS: None Time with current partner: 3 years- [place] Pain with intercourse: No Postcoital bleeding: No Exercise: N/a Diet: Regular Seatbelt use: Yes 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 History Comments: Sexual Activity: Yes; Male Contraception: No contraception data on record PAST MEDICAL HISTORY Diagnosis Date Anemia Arthritis hips Congenital pes planus 03/30/2012 mastitis with Mental disorder Migraine without status migrainosus, not intractable 11/03/2015 Tendonitis 03/30/2012 PAST SURGICAL HISTORY Procedure Laterality Date NONE FAMILY HISTORY Problem Relation Age of Onset No Known Problems Mother Asthma Father No Known Problems Sister No Known Problems Sister No Known Problems Sister No Known Problems Sister No Known Problems Brother No Known Problems Brother Breast Cancer Maternal Grandmother Heart Failure Maternal Grandmother Heart Maternal Grandfather Hypertension Paternal Grandmother COPD Paternal Grandmother Diabetes Paternal Grandfather Cancer Paternal Grandfather Hypertension Paternal Grandfather Heart Paternal Uncle 30 pacemaker No Known Problems Son SOCIAL HISTORY Social History Tobacco Use Smoking status: Former Years: 1.00 Types: Cigarettes Quit date: 02/27/2019 Years since quittin.9 Smokeless tobacco: Never Tobacco comments: vaping Vaping Use Vaping Use: Never used Substance Use Topics Alcohol use: Not Currently Drug use: Never REVIEW OF SYSTEMS Abdomen: No abdominal pain, vomiting, diarrhea, or constipation. No bloating, early satiety, indigestion, or increased flatulence. Positive for nausea Bladder: No dysuria, gross hematuria, urinary frequency, urinary urgency, or incontinence. Breast: No breast lumps, nipple d/c, overlying skin changes, redness or skin retraction. Allergies and current medication updated:Yes EXAM: Wt 101 lb 12.8 oz (46.2kg) LMP 11/16/2021 GENERAL: pleasant, female in no apparent distress HEENT: Normocephalic, atraumatic, mucus membranes moist, and no lesions NECK: Supple, full range of motion, no adenopathy, and thyroid normal DERMATOLOGY: Normal, without lesions, non-icteric, and non-hirsute BREAST: soft, non-tender, symmetric, no dominant mass, normal nipple-areolar complex, no lymphadenopathy, and no nipple discharge CHEST: Normal inspiratory effort ABDOMEN: soft, non-tender, and no masses PELVIC: external genitalia normal, normal Bartholin's glands, urethra, Fitzgerald's glands, no vulvar lesions, no cervical lesions, good vaginal support, physiologic discharge present, normal appearing perineal body and perianal region, cervix friable BIMANUAL: no adnexal masses, non-tender, and enlarged uterus 5-6 week size RECTOVAGINAL: patient declined. NEURO: alert and oriented x3,exam grossly non-focal EXTREMITIES: normal ASSESSMENT/PLAN: 1) Health maintenance: Pap done with reflex HPV. Nutrition, exercise and routine health maintenance exams reviewed. 2) Contraception: none. 3) STD screening: Accepted STD check for Gonorrhea and Chlamydia. 4) Positive test- UNKNOWN gestational age- Dating US and PNOB scheduled. Leann Gill APRN.CNM Allergies As of Date: 02/08/2022 Noted Allergy Reaction PENICILLINS 07/26/2011 4 - Hives Date Reviewed: 02/08/2022 Reviewed by: Meena Thorne MA - Fully Assessed Reason for Visit: Well Woman [1463] Primary Visit Diagnosis:Screen for STD (sexually transmitted disease) [Z11.3] Other Visit Diagnoses:Encounter for gynecological examination (general) (routine) without abnormal findings [Z01.419] Screening for cervical cancer [Z12.4] Encounter for test, result positive [Z32.01] Order(s):PAP FLUID CERVICAL SCREENING [[id number]] Order #: [id number]. #:[id number] GC/CHLAMYDIA DNA DET [SQGCCAMP] Order #: 1 (more content not included)... Normal [facility] PAP FLUID CERVICAL SCREENING on 02-08-2022 CASE REPORT Normal [facility] Comment on above: Order Comment: Speci men Type: BLOOD SPECIMEN Ordering Facility: [facility] Address: [address] [place] [address] Result Comment: Gyne cologic Cytology Report Case: [id number] Authorizing Provider: Leann Gill APRN.CNM Collected: 02/08/2022 08:53 AM Ordering Location: OB/Gynecology Received: 02/08/2022 01:37 PM First Screen: KOTA [place], ASCP Pathologist: Bret Murillo MD Specimen: Pap, Urban Designer, Screening, CERVICAL SCREENING FLUID Performed By: #### 2 1198-7 #### [facility] CLIA [id number] [address] [place] [address] [place] CLINICAL HISTORY ROUTINE EXAM Normal [facility] Comment on above: Order Comment: Speci men Type: BLOOD SPECIMEN Ordering Facility: [facility] Address: [address] [place] [address] Performed By: #### 2 1198-7 #### [facility] CLIA [id number] [address] [place] [address] [place] CYTOLOGY INTERPRETATION PAP Normal [facility] Comment on above: Order Comment: Speci men Type: BLOOD SPECIMEN Ordering Facility: [facility] Address: [address] [address] Result Comment: Nega tive for Intraepithelial lesion or malignancy. Performed By: #### 2 1198-7 #### [facility] CLIA [id number] [address] OF [place] FINAL DIAGNOSIS Normal [facility] Comment on above: Order Comment: Speci men Type: BLOOD SPECIMEN Ordering Facility: [facility] Address: [address] [address] Result Comment: A - CERVICAL SCREENING FLUID Satisfactory for interpretation Negative for Intraepithelial lesion or malignancy. Performed By: #### 2 1198-7 #### [facility] CLIA [id number] [address] [place] [address] OF [facility] FINAL PERFORMING LAB Normal [facility] Comment on above: Order Comment: Speci men Type: BLOOD SPECIMEN Ordering Facility: [facility] Address: [address] [address] Result Comment: Tech nical component, rheumatology specialist screening performed at [facility], [address] [facility] [address] CLIA# [id number] Diagnostic interpretation performed at [facility], [address] [facility] [address] CLIA# [id number] Roof Mechanic: Nghia Lui M.D. Performed By: #### 2 1198-7 #### [facility] CLIA [id number] [address] [place] [address] OF [place] HPV REQUESTED? Yes, Reflex HPV for ASCUS Normal [facility] Comment on above: Order Comment: Speci men Type: BLOOD SPECIMEN Ordering Facility: [facility] Address: [address] [address] Performed By: #### 2 1198-7 #### [facility] CLIA [id number] [address] OF [place] LMP 11/16/2021 Normal [facility] Comment on above: Order Comment: Speci men Type: BLOOD SPECIMEN Ordering Facility: [facility] Address: [address] [place] [address] Performed By: #### 2 1198-7 #### [facility] CLIA [id number] [address] [place] PAP DISCLAIMER COMMENT The Pap Smear is a screening test for cervical cancer. False negative results occur with all screening tests, emphasizing the need for rescreening at recommended intervals, and clinical correlation. Normal [facility] Comment on above: Order Comment: Speci men Type: BLOOD SPECIMEN Ordering Facility: [facility] Address: [address] [place] [address] Performed By: #### 2 1198-7 #### [facility] CLIA [id number] [address] [place] [address] [place] PAP MILL OPERATOR COMMENT This specimen has been analyzed by the ThinPrep Imaging System, an automated imaging and review system, which assists the laboratory in evaluating cells on ThinPrep Pap tests. Following automated imaging, selected jones from every slide are reviewed by a rheumatology specialist. Normal [facility] Comment on above: Order Comment: Speci men Type: BLOOD SPECIMEN Ordering Facility: [facility] Address: [address] [place] [address] Performed By: #### 2 1198-7 #### [facility] CLIA [id number] [address] [place] [address] OF [place] CNOVon 02-01-2022 CNOV Office Visit (UCWSTR) LUTHER WILLIS ([id number]) 2000 F Date Time Provider Department 02/01/22 6:15 PM TAMMIE SCHWARZWSTR During your visit today, we recorded the following information about you: Temperature Pulse Respiration Blood pressure 98.5 degrees 77/minute 16/minute 100/58 Weight 45.5 kg Tammie Schwarz APRN.BLOWER BLAST FURNACE 02/01/2022 6:48 PM Signed Subjective The history is provided by the patient. No chinese language professor was used. HPI Luther Willis is a 22 year old female who presents today for CC of nausea, and vomiting with headache. This started over the past 3 months. She has not had a period for at least 3 months. She has had unprotected sex, possibility of . She also had last week uri symptoms BP 100/58 Pulse 77 Temp 36.9 ?C (98.5 ?F) Resp 16 Wt 45.5 kg (100 lb 3.2 oz) LMP (LMP Unknown) SpO2 100% No BMI 17.20 kg/m? Social History Tobacco Use Smoking status: Former Years: 1.00 Types: Cigarettes Quit date: 02/27/2019 Years since quittin.9 Smokeless tobacco: Never Tobacco comments: vaping Vaping Use Vaping Use: Never used Substance Use Topics Alcohol use: Not Currently Drug use: Never PAST MEDICAL HISTORY Diagnosis Date Anemia Arthritis hips Congenital pes planus 03/30/2012 mastitis with Mental disorder Migraine without status migrainosus, not intractable 11/03/2015 Tendonitis 03/30/2012 I have confirmed and edited as necessary, the [facility] Review of Systems Constitutional: Negative for chills and fever. HENT: Positive for congestion. Negative for ear pain, sinus pain and sore throat. Respiratory: Positive for cough. Negative for sputum production, shortness of breath and wheezing. Cardiovascular: Negative for chest pain. Musculoskeletal: Negative for myalgias. Neurological: Negative for headaches. Objective Physical Exam Vitals and nursing note reviewed. HENT: Head: Normocephalic and atraumatic. Right Ear: Tympanic membrane, ear canal and external ear normal. Left Ear: Tympanic membrane, ear canal and external ear normal. Mouth/Throat: Pharynx: Uvula midline. Cardiovascular: Rate and Rhythm: Normal rate and regular rhythm. Pulmonary: Breath sounds: Normal breath sounds. Lymphadenopathy: Head: Right side of head: No submental, submandibular or tonsillar adenopathy. Left side of head: No submental, submandibular or tonsillar adenopathy. Cervical: No cervical adenopathy. Skin: General: Skin is warm and dry. Neurological: Mental Status: She is alert. Psychiatric: Mood and Affect: Affect normal. ASSESSMENT/PLAN: 1. 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 Viral illness - ICD9: 079.99, ICD10: B34.9 - Discussed viral etiology and rationale for treatment. - Symptomatic treatment with prn analgesia - Supportive care with fluids and rest Home isolation Testing ordered Comfort measures discussed - see patient instructions. When to seek higher level of care Notified in 24-48 hours with results, available on [employer] - 2018 CORONAVIRUS Diagnosis and treatment plan were discussed and questions were answered to the patient's satisfaction. Pt acknowledged understanding of concepts and follow up plan. Specific signs and symptoms that would indicate the need for higher level of care were discussed in detail warranting prompt ER evaluation. Tammie Schwarz APRN.LAURY Schwarz APRN.CNP 02/01/2022 6:48 PM Signed covid test ordered You will be notified in 24 -48 hours, results available on [employer] Home isolation until covid results are back Call ob office tomorrow to let know as well as covid results. Rest, increase water intake Motrin or Tylenol as needed for fever or pain. Salt water gargles, chloraseptic spray or lozenges as needed for sore throat. Warm beverages, honey. Nasal saline spray as needed Cool mist humidifier at night * Seek medical care immediately, call 911, go to ER if you have chest pain, difficulty breathing, shortness of breath, inability to swallow. Referring Provider: SELF [200] Allergies As of Date: 02/01/2022 Noted Allergy Reaction PENICILLINS 07/26/2011 4 - Hives Date Reviewed: 02/01/2022 Reviewed by: Tammie Schwarz APRN.CNP - Fully Assessed Reason for Visit: Nausea AND Vomiting [237] Cmt: Daniels pain rated 4, x2 days, missed menses x3 mths Primary Visit Diagnosis:Secondary amenorrhea [N91.1] Other Visit Diagnosis:Viral illness [B34.9] Order(s):HCG QUAL UR B/O [[id number]] Order #: [id number] 2019 CORONAVIRUS [SQCOVID] Order #: [id number] FUTURE 2019 CORONAVIRUS [SQCOVID] Order #: [id number]. #:[id number] Problem List As Of Date 02/01/2022 Noted Resolved Tendonitis [M77.9] 03/30/2012 08/28/2019 Congenital pes planus [Q66.50] 03/30/2012 0 (more content not included)... Normal [facility] HCG QUAL UR B/Oon 02-01-2022 status Positive neg - pos [facility] Quality Check Yes [facility] SARS-CoV-2 RNA Resp Ql TIFFANIE+p robeon 02-01-2022 SARS-CoV-2 (COVID-19) RNA TIFFANIE+probe Ql (Resp) COVID 19 RESULT: SARS-CoV-2 (Agent of COVID-19) Not Detected by RT-PCR or equivalent method. This test was developed and its performance characteristics determined by [facility]'s [facility] [place]. This test has been authorized by FDA under an Emergency Use Authorization (EUA). This test has been validated in accordance with the FDA's Guidance Document Policy for Diagnostics Testing in Laboratories Certified to Perform High Complexity Testing under CLIA prior to Emergency use Authorization for Coronavirus Disease 2019 during the Public Health Emergency issued on August 25, 2019. Test performed by [facility], [facility] [place], [address] [place] [address]. Normal [facility] Comment on above: Performed By: #### 9 4500-6 ####[facility] [id number] [place] [address] [place] No Panel Informationon 12-19 IMPRESSION: No acute osseous abnormality identified. 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 Pest Control Service Technician: WILLIAN Transcribe Date/Time: Dec 19 2021 11:23A Dictated by : BROOKE THORNTON MD This examination was interpreted and the report reviewed and electronically signed by: BROOKE THORNTON MD on Dec 19 2021 11:27AM EST ZZZ_DO_NOT_U _DIVISION OF RADIOLOGY Radiology Study observation (narrative) [facility] No Panel InformationOrdered By: Ccf Provider on 12-19-2021 [facility] XR Elbow - left AP and Later al and obliqueon 12-19-2021 * * *Final Report* * * DATE OF EXAM: Dec 19 2021 11:22AM WOX 5324 - XR ELBOW 3V AP/LAT/OTHER LT / PROCEDURE REASON: Elbow pain, left * * * * Physician Interpretation * * * * Left elbow and wrist radiograph HISTORY: 21 years old Clinical information: Elbow pain, left Posteiror left elbow pain following a fall last night (accession [id number]), Left radial sided wrist pain following a fall yesterday (accession [id number]) TECHNIQUE: Images: XR ELBOW 3V AP/LAT/OTHER LT, XR WRIST 4V PA/LAT/OBL/SCAPH LT Comparison: None. Left elbow RESULT: No fracture or dislocation. Probable pseudolesion at the insertion site of the distal biceps tendon. No joint effusion. Left wrist RESULT: Joint spaces are maintained. No fracture or dislocation. 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 No soft tissue abnormality identified. ZZZ_DO_NOT_U _DIVISION OF RADIOLOGY Provider, [facility] [place] - 12/19/2021 * * *Final Report* * * DATE OF EXAM: Dec 19 2021 11:22AM WOX 5324 - XR ELBOW 3V AP/LAT/OTHER LT / PROCEDURE REASON: Elbow pain, left * * * * Physician Interpretation * * * * Left elbow and wrist radiograph HISTORY: 21 years old Clinical information: Elbow pain, left Posteiror left elbow pain following a fall last night (accession [id number]), Left radial sided wrist pain following a fall yesterday (accession [id number]) TECHNIQUE: Images: XR ELBOW 3V AP/LAT/OTHER LT, XR WRIST 4V PA/LAT/OBL/SCAPH LT Comparison: None. Left elbow RESULT: No fracture or dislocation. Probable pseudolesion at the insertion site of the distal biceps tendon. No joint effusion. Left wrist RESULT: Joint spaces are maintained. No fracture or dislocation. 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 No soft tissue abnormality identified. IMPRESSION IMPRESSION: No acute osseous abnormality identified. 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 Pest Control Service Technician: PSCB Transcribe Date/Time: Dec 19 2021 11:23A Dictated by : BROOKE THORNTON MD This examination was interpreted and the report reviewed and electronically signed by: BROOKE THORNTON MD on Dec 19 2021 11:27AM [facility] XR Wrist - left 4 Viewson * * *Final Report* * * DATE OF EXAM: Dec 19 2021 11:22AM WOX 5272 - XR WRIST 4V PA/LAT/OBL/SCAPH LT / PROCEDURE REASON: Acute wrist pain, left * * * * Physician Interpretation * * * * Left elbow and wrist radiograph HISTORY: 21 years old Clinical information: Elbow pain, left Posteiror left elbow pain following a fall last night (accession [id number]), Left radial sided wrist pain following a fall yesterday (accession [id number]) TECHNIQUE: Images: XR ELBOW 3V AP/LAT/OTHER LT, XR WRIST 4V PA/LAT/OBL/SCAPH LT Comparison: None. Left elbow RESULT: No fracture or dislocation. Probable pseudolesion at the insertion site of the distal biceps tendon. No joint effusion. Left wrist RESULT: Joint spaces are maintained. No fracture or dislocation. 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 No soft tissue abnormality identified. ZZZ_DO_NOT_U SE_DIVISION OF RADIOLOGY Provider, [facility] [place] - 12/19/2021 * * *Final Report* * * DATE OF EXAM: Dec 19 2021 11:22AM WOX 5272 - XR WRIST 4V PA/LAT/OBL/SCAPH LT / PROCEDURE REASON: Acute wrist pain, left * * * * Physician Interpretation * * * * Left elbow and wrist radiograph HISTORY: 21 years old Clinical information: Elbow pain, left Posteiror left elbow pain following a fall last night (accession [id number]), Left radial sided wrist pain following a fall yesterday (accession [id number]) TECHNIQUE: Images: XR ELBOW 3V AP/LAT/OTHER LT, XR WRIST 4V PA/LAT/OBL/SCAPH LT Comparison: None. Left elbow RESULT: No fracture or dislocation. Probable pseudolesion at the insertion site of the distal biceps tendon. No joint effusion. Left wrist RESULT: Joint spaces are maintained. No fracture or dislocation. 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 No soft tissue abnormality identified. IMPRESSION IMPRESSION: No acute osseous abnormality identified. 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 Pest Control Service Technician[facility] Transcribe Date/Time: Dec 19 2021 11:23A Dictated by : BROOKE THORNTON MD This examination was interpreted and the report reviewed and electronically signed by: BROOKE THORNTON MD on Dec 19 2021 11:27AM EST [facility] CBC W Auto Differential pane l (Bld)on 10-09-2021 Abs Immature Gran <0.03 <0.10 k/uL [facility] Basophils (Bld) [#/Vol] 0.04 10*3/uL <0.11 k/uL [facility] Basophils/100 WBC (Bld) 0.5 % [facility] Differential cell count method Nom (Bld) Auto [facility] Eosinophils (Bld) [#/Vol] 0.09 10*3/uL <0.46 k/uL [facility] Eosinophils/100 WBC (Bld) 1.2 % [facility] Erythrocyte distribution width (RBC) [Ratio] 12.4 % 11.5 - 15.0 % [facility] Hematocrit (Bld) [Volume fraction] 39.0 % 36.0 - 46.0 % [facility] Hemoglobin (Bld) [Mass/Vol] 13.1 g/dL 11.5 - 15.5 g/dL [facility] Immature Gran % 0.1 % [facility] Lymphocytes (Bld) [#/Vol] 1.62 10*3/uL 1.00 - 4.00 k/uL [facility] Lymphocytes/100 WBC (Bld) 21.7 % [facility] MCH (RBC) [Entitic mass] 28.6 pg 26.0 - 34.0 pg [facility] MCHC (RBC) [Mass/Vol] 33.6 g/dL 30.5 - 36.0 g/ dL [facility] MCV (RBC) [Entitic vol] 85.2 fL 80.0 - 100.0 fL [facility] Monocytes (Bld) [#/Vol] 0.69 10*3/uL <0.87 k/uL [facility] Monocytes/100 WBC (Bld) 9.2 % [facility] Neutrophils (Bld) [#/Vol] 5.02 10*3/uL 1.45 - 7.50 k/uL [facility] Neutrophils/100 WBC (Bld) 67.3 % [facility] Nucleated RBC (Bld) [#/Vol] 10*3/uL <0.01 k/uL [facility] Nucleated RBC/100 WBC (Bld) [Ratio] 0.0 /100 WBC [facility] Platelet mean volume (Bld) [Entitic vol] 9.5 fL 9.0 - 12.7 fL [facility] Platelets (Bld) [#/Vol] 370 10*3/uL 150 - 400 k/uL [facility] RBC (Bld) [#/Vol] 4.58 10*6/uL 3.90 - 5.20 m/uL [facility] WBC (Bld) [#/Vol] 7.47 10*3/uL 3.70 - 11. 00 k/uL [facility] Comprehensive metabolic 2000 panelon 10-09-2021 Albumin [Mass/Vol] 3.9 g/dL 3.9 - 4.9 g/dL [facility] ALP [Catalytic activity/Vol] 97 U/L 34 - 123 U/L [facility] ALT [Catalytic activity/Vol] 21 U/L 7 - 38 U/L [facility] Anion gap [Moles/Vol] 9 mmol/L 9 - 18 mmol/L [facility] AST [Catalytic activity/Vol] 19 U/L 13 - 35 U/L [facility] Bilirubin [Mass/Vol] 0.3 mg/dL 0.2 - 1.3 mg/dL [facility] Calcium [Mass/Vol] 8.7 mg/dL 8.5 - 10.2 mg/dL [facility] Chloride [Moles/Vol] 104 mmol/L 97 - 105 mmol/L [facility] CO2 [Moles/Vol] 27 mmol/L 22 - 30 mmol/L [facility] Creatinine [Mass/Vol] 0.68 mg/dL 0.58 - 0.96 mg/dL [facility] Estimated Glomerular Filtration Rate 126 mL/min/1.73m >=60 mL/min/1.73m [facility] Glucose [Mass/Vol] 71 mg/dL Low 74 - 99 mg/dL [facility] Potassium [Moles/Vol] 3.4 mmol/L Low 3.7 - 5.1 mmol /L [facility] Protein [Mass/Vol] 6.3 g/dL 6.3 - 8.0 g/dL [facility] Sodium [Moles/Vol] 140 mmol/L 136 - 144 mmol/L [facility] Urea nitrogen [Mass/Vol] 6 mg/dL Low 7 - 21 mg/dL [facility] HCG QUAL UR B/Oon 10-09-2021 status Negative neg - pos [facility] Quality Check Yes [facility] Lipaseon 10-09-2021 Lipase [Catalytic activity/Vol] 200 U/L Normal [id number] [facility] Comment on above: Performed By: #### L [phone] #### [facility] 176[facility] Hospital[facility]ore[facility] [place], [address] UA DIP, URINE (POC)on 2021 BILIRUBIN UA (POCT) Negative Negative [facility] CLARITY UA (POCT) Clear [facility] COLOR UA (POCT) Yellow [facility] GLUCOSE UA (POCT) Negative Negative mg/dL [facility] HEMOGLOBIN/BLOOD UA (POCT) Negative Negative [facility] KETONE UA (POCT) Negative Negative mg/dL [facility] LEUKOCYTES UA (POCT) Negative Negative [facility] NITRITE UA (POCT) Negative Negative [facility] PH UA (POCT) 6.0 4.5 - 8.0 [facility] Protein Ql (U) Trace Abnormal Negative mg/dL [facility] SPECIFIC GRAVITY UA (POCT) >=1.030 1.005 - 1.030 [facility] UROBILINOGEN UA (POCT) 0.2 E.U./dL Normal E.U./ dL [facility] Vital Signs Date Time Vital Sign Value Performing Clinician Faci lity 09-28-2022 11:48-0400 Body weight 48.53 kg Judith Carlson RADIOTELEGRAPHIST.CNM Work Phone: [facility] 09-28-2022 11:48-0400 Diastolic blood pressure 60 mm[Hg] Judith Carlson RADIOTELEGRAPHIST.CNM Work Phone: [facility] 09-28-2022 11:48-0400 Systolic blood pressure 92 mm[Hg] Judith Carlson RADIOTELEGRAPHIST.CNM Work Phone: [facility] 09-24-2022 08:02-0400 Body weight 48.53 kg Ob Ultrasound Work Phone: [facility] 09-10-2022 09:56-0400 Body height 161.3 cm Teresa Sales MD Work Phone: [facility] 09-10-2022 09:56-0400 Body weight 49.8 kg Teresa Sales MD Work Phone: [facility] 09-10-2022 09:56-0400 Diastolic blood pressure 48 mm[Hg] Teresa Sales MD Work Phone: [facility] 09-10-2022 09:56-0400 Systolic blood pressure 86 mm[Hg] Teresa Sales MD Work Phone: [facility] 09-01-2022 10:42-0500 Body height 161.3 cm Leann Plotts RADIOTELEGRAPHIST.CNM Work Phone: [facility] 09-01-2022 10:42-0500 Body weight 49.9 kg Leann Plotts RADIOTELEGRAPHIST.CNM Work Phone: [facility] 09-01-2022 10:42-0500 Diastolic blood pressure 50 mm[Hg] Leann Plotts RADIOTELEGRAPHIST.CNM Work Phone: [facility] 09-01-2022 10:42-0500 Systolic blood pressure 84 mm[Hg] Leann Plotts RADIOTELEGRAPHIST.CNM Work Phone: [facility] 03-12-2022 14:36-0400 Body weight 44.45 kg Chuyita Masters MD Work Phone: [facility] 03-12-2022 14:36-0400 Diastolic blood pressure 60 mm[Hg] Chuyita Masters MD Work Phone: [facility] 03-12-2022 14:36-0400 Systolic blood pressure 98 mm[Hg] Chuyita Masters MD Work Phone: [facility] 03-04-2022 10:32-0400 Diastolic blood pressure 56 mm[Hg] Ilir Ramirez MD Work Phone: [facility] 03-04-2022 10:32-0400 Heart rate 63 /min Ilir Ramirez MD Work Phone: [facility] 03-04-2022 10:32-0400 Respiratory rate 14 /min Ilir Ramirez MD Work Phone: [facility] 03-04-2022 10:32-0400 SaO2% (BldA) [Mass fraction] 99 % Ilir Ramirez MD Work Phone: [facility] 03-04-2022 10:32-0400 Systolic blood pressure 92 mm[Hg] Ilir Ramirez MD Work Phone: [facility] 03-04-2022 09:37-0400 Body weight 44.91 kg Ilir Ramirez MD Work Phone: [facility] 03-02-2022 11:01-0400 Body temperature 98.2 [degF] Teresa Sales MD Work Phone: [facility] 03-02-2022 11:01-0400 Body weight 45.18 kg Teresa Sales MD Work Phone: [facility] 03-02-2022 11:01-0400 Diastolic blood pressure 60 mm[Hg] Teresa Sales MD Work Phone: [facility] 03-02-2022 11:01-0400 Systolic blood pressure 92 mm[Hg] Teresa Sales MD Work Phone: [facility] 02-22-2022 14:27-0400 Body weight 45.36 kg Chuyita Masters MD Work Phone: [facility] 02-22-2022 14:27-0400 Diastolic blood pressure 56 mm[Hg] Chuyita Masters MD Work Phone: [facility] 02-22-2022 14:27-0400 Systolic blood pressure 98 mm[Hg] Chuyita Masters MD Work Phone: [facility] 02-08-2022 08:25-0400 Body weight 46.18 kg Leann Gill RADIOTELEGRAPHIST.CNM Work Phone: [facility] 02-01-2022 18:23-0400 Body temperature 98.49 [degF] Tammie Garciak RADIOTELEGRAPHIST.[employer] Work Phone: [facility] 02-01-2022 18:23-0400 Body weight 45.45 kg Tammieroscoe Garciak RADIOTELEGRAPHIST.[employer] Work Phone: [facility] 02-01-2022 18:23-0400 Diastolic blood pressure 58 mm[Hg] Tammie Karishma RADIOTELEGRAPHIST.[employer] Work Phone: [facility] 02-01-2022 18:23-0400 Heart rate 77 /min Tammie Karishma RADIOTELEGRAPHIST.[employer]CE Work Phone: [facility] 02-01-2022 18:23-0400 Respiratory rate 16 /min Tammie Karishma RADIOTELEGRAPHIST.[employer] Work Phone: [facility] 02-01-2022 18:23-0400 SaO2% (BldA) [Mass fraction] 100 % Tammie Karishma RADIOTELEGRAPHIST.[employer] Work Phone: [facility] 02-01-2022 18:23-0400 Systolic blood pressure 100 mm[Hg] Tammie Karishma RADIOTELEGRAPHIST.[employer]CE Work Phone: [facility] 12-19-2021 10:38-0400 Body temperature 97 [degF] Anselmo Ferraro MD Work Phone: [facility] 12-19-2021 10:38-0400 Body weight 43.55 kg Anselmo Ferraro MD Work Phone: [facility] 12-19-2021 10:38-0400 Diastolic blood pressure 62 mm[Hg] Anselmo Ferraro MD Work Phone: [facility] 12-19-2021 10:38-0400 Heart rate 98 /min Anselmo Ferraro MD Work Phone: [facility] 12-19-2021 10:38-0400 Respiratory rate 18 /min Anselmo Ferraro MD Work Phone: [facility] 12-19-2021 10:38-0400 SaO2% (BldA)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 distress. Appearance: Normal appearance. She is normal weight. She is not ill-appearing, toxic-appearing or diaphoretic. HENT: Head: Normocephalic and atraumatic. Right Ear: Ear canal and external ear normal. Left Ear: Ear canal and external ear normal. Nose: Nose normal. No congestion or rhinorrhea. Mouth/Throat: Mouth: Mucous membranes are moist. Pharynx: No oropharyngeal exudate or posterior oropharyngeal erythema. Eyes: General: Right eye: No discharge. Left eye: No discharge. Extraocular Movements: Extraocular movements intact. Con (more content not included)... [facility] 09-28-2022 Note HNO ID: [id number] Author: Judith Carlson APRN.DASHA Service: ? Author Type: Frickertron Checker Type: Progress Notes Filed: 09/28/2022 1:10 PM Note Text: Luther Willis is a 22 year old who presents with 1st trimester bleeding. Patient's last menstrual period was 07/27/2022 (exact date). 6w3d by first trimester US on 09/24/22 O Rh Positive Vaginal bleeding: Yes, How much? Increased with clots, not saturating pad, no dizziness Cramping: Yes, mild but improved. HCG: Component Latest Ref Rng AND Units 09/10/2022 09/14/2022 hCG Quantitative, Blood <5.0 mIU/mL 9,056.0 (H) 11,802.0 (H) Imaging: limited bedside US today shows no IUP or gestational sac Plan: HCG today and in 48 hours Early failure was discussed with the patient. She was counseled regarding expectant, medical and surgical management options. Risks and benefits of each were discussed. She would like to continue with expectant management at this time and will follow up discussion after results. Bleeding precautions reviewed. Judith Carlson APRN.CNM [facility] 09-28-2022 History of Presen t illness Narrative Luther Willis is a 22 year old who presents with 1st trimester bleeding. Patient's last menstrual period was 07/27/2022 (exact date). 6w3d by first trimester US on 09/24/22 O Rh Positive Vaginal bleeding: Yes, How much? Increased with clots, not saturating pad, no dizziness Cramping: Yes, mild but improved. HCG: Component Latest Ref Rng & Units 09/10/2022 09/14/2022 hCG Quantitative, Blood <5.0 mIU/mL 9,056.0 (H) 11,802.0 (H) Imaging: limited bedside US today shows no IUP or gestational sac Plan: HCG today and in 48 hours Early failure was discussed with the patient. She was counseled regarding expectant, medical and surgical management options. Risks and benefits of each were discussed. She would like to continue with expectant management at this time and will follow up discussion after results. Bleeding precautions reviewed. Judith Carlson APRN.CNM documented in this encounter [facility] 09-28-2022 Instructions Judith Carlson APRN.CNM - 09/28/2022 11:46 AM EDT SEQUENTIAL SCREENINGS The [facility] offers sequential screenings for women who are interested in screenings for chromosomal abnormalities and certain defects during a . The sequential screen combines ultrasound and blood tests to determine the risk of chromosomal abnormalities, including Down's Syndrome (Trisomy 21) and Trisomy 18, as well as open neural tube defects including spina bifida. Ultrasound examination is performed between 11 weeks and 13 weeks gestational age. Blood tests are drawn after the ultrasound and again later in the between 15 and 21 weeks gestational age. Please let your physician know if you are interested in this testing. It will require an appointment with our final operations technician. This is not an ultrasound performed by a physician in our office during a routine visit. SIGNS AND SYMPTOMS OF LABOR 1. Contractions every 10 minutes or more often 2. Clear, pink, or brownish fluid (water) leaking from vagina 3. Feeling that baby is pushing down, pressure 4. Low, dull backache 5. Cramps that feel like a period 6. Cramps with or without diarrhea If you notice any of the above symptoms, contact our office at [phone] and ask to speak with a nurse. After hours, you can call doctors registry at [phone] OR call [facility] at [phone] and ask to have the doctor simulation tech paged. If you consider this an emergency, dial 9-1-3 or go to your nearest emergency department. NEED HELP? Are you dealing with a violent or abusive relationship? Are you a victim of rape or sexual assult? Call [facility] 24 hour Crisis Hotline: 419.882.5396 or 397-696-7358. MANUAL Your Guide to a Healthy manual is now on-line. Visit [email or web address] to download your free copy Bleeding in Early Many women experience bleeding in the first trimester. This can be part of the normal process of establishing the , commonly called implantation bleeding or can occur if there is a collection of blood in the uterus (your doctor may refer to this as a subchorionic hemorrhage or subchorionic hematoma). Bleeding can also happen due to infection in the vagina or benign overgrowths on the cervix called polyps. Most of these situations will go on to be normal pregnancies. Bleeding can also occur with a miscarriage or an ectopic ( outside of the uterus, most commonly in the fallopian tube). In order to tell if the is normal or not, your doctor may order lab tests or an ultrasound. Blood work is usually done to check your HCG level, which is the hormone. HCG increases in a predictable pattern in early . If the level is decreasing it means the has stopped developing. Your doctor will also order a blood type test if your blood type is unknown. If your blood type is negative you will receive an injection of Rhogam to prevent sensitization for future pregnancies. An ultrasound may be ordered to see if the is in the correct location or to check if the fetus has a heartbeat. Whether an ultrasound will be helpful or not depends on how far along you are in the . If you are diagnosed with a miscarriage (also called a spontaneous ), there are several options for treatment. You may choose to wait and see if your body will pass the on its own, which is similar to a heavy period with cramping. Misoprostol is a medication that can help speed up the process and is given either in the vagina or by mouth. Surgical management for miscarriage is called a D&C and involves your doctor emptying out the uterus with suction. This is done under sedation in the operating room. If at any time you experience heavy vaginal bleeding (soaking through a pad in an hour or less), severe abdominal pain, lightheadedness or shortness of breath you need to call your doctor immediately or go the the emergency room. We understand this is a difficult time for you and your family and will do our best to answer all of your questions and concerns. documented in this encounter [facility] 09-27-2022 Miscellaneous Notes Spoke with pt and she stated that she is not bleeding that heavily at this time. She feels that it is almost stopped. Pt was given bleeding precautions and when she would need to go to the ED. Pt voiced understanding. Pt was also informed that we need to schedule her to be seen in the office tomorrow. Pt is unable to schedule appointment at this time she will need to talk with her and will then call the office to schedule. Will leave phone note open until pt returns call. Yesica Herrera LPN Please review bleeding precautions with patient. If increased bleeding - saturating a pad an hour or extreme pain- she should go to ED. If she is able to come in tomorrow or when she can get here that is appropriate if bleeding is not extreme. Leann Gill APRN.CNM Pt is not able to come in to be seen today, they have only one car and her in working today. Please advise. Yesica Herrera LPN I scheduled the pt to be seen by SURAJ as you have no openings. Yesica Herrera LPN Please see pt's mychart message and advise how you would like to proceed. Yesica Herrera LPN' documented in this encounter [facility] 09-14-2022 Miscellaneous Notes Risk Assessment Form completed. VALENTE Maciel, RN OB Clinical Navigator documented in this encounter [facility] 09-10-2022 Note HNO ID: [id number] Author: Teresa Sales MD Service: ? Author Type: Physician Type: Progress Notes Filed: 09/10/2022 10:23 AM Note Text: INITIAL OB ASSESSMENT Counter Control Operator offered: Patient declines. Obstetric History T2 L2 SAB1 IAB0 Ectopic0 Multiple0 Live Births2 Name of Baby 1: Chuy Date: 07/14/19 GA: 37w5d Delivery: Vaginal, Spontaneous Apgar1: 7 Apgar5: 9 Living: Living Name of Baby 2: Not recorded Date: 09/08/20 GA: 38w0d Delivery: Vaginal, Spontaneous Apgar1: 7 Apgar5: 9 Living: Living Name of Baby 3: Not recorded Date: 03/04/22 GA: 6w0d Delivery: MISSED AB Apgar1: Not recorded Apgar5: Not recorded Living: Not recorded Name of Baby 4: Not recorded Date: Not recorded GA: Not recorded Delivery: Not recorded Apgar1: Not recorded Apgar5: Not recorded Living: Not recorded HPI: Luther Willis is a 22 year old female here to establish Obstetrical Care. Patient's last menstrual period was 07/27/2022 (exact date). from OB Dating Form. Complaints: nausea and vomiting (occ). Tolerating PO. was planned. OB History T2 L2 SAB1 IAB0 Ectopic0 Multiple0 Live Births2 Prior : never History of 4th degree laceration: No Patient's Risk Screening for delivery: History of abnormal pap: No Prior treatment for cervical dysplasia: none. History of STDs: None Tobacco use: No Caffeine use: Yes Drug use: No Alcohol use: No Multivitamin with Folic acid: Yes Occupation: none Jew or heritage: No Would refuse blood transfusion if medically necessary: No BMI 19.15 kg/(m2) Patient BMI over 30? 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 ondansetron (ZOFRAN) 4 mg tablet Take 1 tablet by mouth every 8 hours as needed for nausea/vomiting. (Patient not taking: Reported on 03/12/2022) PNV no.95/ferrous fum/folic ac ( ORAL) Take by mouth. No current facility-administered medications on file prior to visit. Review of Systems: GENERAL: Negative for: Fever or Chills HEENT: Negative for: Headache, Impaired Vision, Ringing in Ears, Nosebleeds NECK: Negative for: Swelling, Pain, Stiffness RESPIRATORY: Negative for: Cough, Shortness of breath, Wheezing GASTROINTESTINAL: Negative for: Heartburn, Diarrhea, Blood in stool, Vomiting. positive mild constipation MUSCULOSKELETAL: Negative for: Muscle or joint pain, stiffness, Joint swelling NEUROLOGIC/PSYCHIATRIC: Negative for: Weakness, Paralysis, Numbness, Tingling, Tremor, Anxiety, Depression, Memory loss SKIN: Negative for: Rash, Itching GENITOURINARY: Negative for: vaginal itching, vaginal discharge, hematuria or dysuria PHYSICAL EXAM: BP 86/48 Ht 5' 3.5 (1.61m) Wt 109 lb 12.8 oz (49.8kg) LMP 07/27/2022 BMI 19.14 kg/(m2). GENERAL: pleasant female in no apparent distress DERMATOLOGY: Normal, without lesions, non-icteric, and non-hirsute NECK: Supple, full range of motion, no adenopathy, and thyroid normal CHEST: Normal inspiratory effort BREAST: soft, non-tender, symmetric, no dominant mass, normal nipple-areolar complex, no lymphadenopathy, and no nipple discharge ABDOMEN: soft, non-tender, and no masses NEURO: alert and oriented x3,exam grossly non-focal PELVIS: External genitalia normal without lesions. Perineal body intact. No vaginal or cervical lesions. Cervix closed. Uterus 5-6 week size. No adnexal masses or tenderness. Clinical Pelvimetry: Pelvimetry clinically assessed as adequate Limited OB ultrasound exam: single intrauterine with possible yolk sac OB Risk Screening: Completed, no positive findings documented. SBIRT Luther Willis was given the 4P's screening tool. Luther answered as follows: OB Opioid Screening - Last Recorded (since 12/14/2021) Did any of your parents have a problem with alcohol or other drug use? Yes Mom-ETOH Does your partner have a problem with alcohol or other drug use? No In the past, have you had difficulties in your life because of alcohol or other drugs, including prescription medications? No In the past month have you drunk any alcohol or used other drugs? No Are you taking medication for pain during the either prescribed or not? No Based on the screen and further questions, she is considered at Low risk due to:No past or current use. Positive reinforcement of current behavior. Plan to rescreen early third trimester. Teresa Sales MD ASSESSMENT: 22 year old at 6AND3 wks ges (more content not included)... [facility] 09-10-2022 Instructions Saba Oden Ma - 09/10/2022 9:45 AM EDT Please select the following link to access the [facility] Your Guide to a Healthy . [email or web address] documented in this encounter [facility] 09-10-2022 History of Presen t illness Narrative Images from the original note were not included. INITIAL OB ASSESSMENT Counter Control Operator offered: Patient declines. Obstetric History T2 L2 SAB1 IAB0 Ectopic0 Multiple0 Live Births2 Name of Baby 1: Chuy Date: 07/14/19 GA: 37w5d Delivery: Vaginal, Spontaneous Apgar1: 7 Apgar5: 9 Living: Living Name of Baby 2: Not recorded Date: 09/08/20 GA: 38w0d Delivery: Vaginal, Spontaneous Apgar1: 7 Apgar5: 9 Living: Living Name of Baby 3: Not recorded Date: 03/04/22 GA: 6w0d Delivery: MISSED AB Apgar1: Not recorded Apgar5: Not recorded Living: Not recorded Name of Baby 4: Not recorded Date: Not recorded GA: Not recorded Delivery: Not recorded Apgar1: Not recorded Apgar5: Not recorded Living: Not recorded HPI: Luther Willis is a 22 year old female here to establish Obstetrical Care. Patient's last menstrual period was 07/27/2022 (exact date). from OB Dating Form. Complaints: nausea and vomiting (occ). Tolerating PO. was planned. OB History T2 L2 SAB1 IAB0 Ectopic0 Multiple0 Live Births2 Prior : never History of 4th degree laceration: No Patient's Risk Screening for delivery: History of abnormal pap: No Prior treatment for cervical dysplasia: none. History of STDs: None Tobacco use: No Caffeine use: Yes Drug use: No Alcohol use: No Multivitamin with Folic acid: Yes Occupation: none Jew or heritage: No Would refuse blood transfusion if medically necessary: No BMI 19.15 kg/(m^2) Patient BMI over 30? 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 ondansetron (ZOFRAN) 4 mg tablet Take 1 tablet by mouth every 8 hours as needed for nausea/vomiting. (Patient not taking: Reported on 03/12/2022) PNV no.95/ferrous fum/folic ac ( ORAL) Take by mouth. No current facility-administered medications on file prior to visit. Review of Systems: GENERAL: Negative for: Fever or Chills HEENT: Negative for: Headache, Impaired Vision, Ringing in Ears, Nosebleeds NECK: Negative for: Swelling, Pain, Stiffness RESPIRATORY: Negative for: Cough, Shortness of breath, Wheezing GASTROINTESTINAL: Negative for: Heartburn, Diarrhea, Blood in stool, Vomiting. positive mild constipation MUSCULOSKELETAL: Negative for: Muscle or joint pain, stiffness, Joint swelling NEUROLOGIC/PSYCHIATRIC: Negative for: Weakness, Paralysis, Numbness, Tingling, Tremor, Anxiety, Depression, Memory loss SKIN: Negative for: Rash, Itching GENITOURINARY: Negative for: vaginal itching, vaginal discharge, hematuria or dysuria PHYSICAL EXAM: BP 86/48 Ht 5' 3.5 (1.61m) Wt 109 lb 12.8 oz (49.8kg) LMP 07/27/2022 BMI 19.14 kg/(m^2). GENERAL: pleasant female in no apparent distress DERMATOLOGY: Normal, without lesions, non-icteric, and non-hirsute NECK: Supple, full range of motion, no adenopathy, and thyroid normal CHEST: Normal inspiratory effort BREAST: soft, non-tender, symmetric, no dominant mass, normal nipple-areolar complex, no lymphadenopathy, and no nipple discharge ABDOMEN: soft, non-tender, and no masses NEURO: alert and oriented x3,exam grossly non-focal PELVIS: External genitalia normal without lesions. Perineal body intact. No vaginal or cervical lesions. Cervix closed. Uterus 5-6 week size. No adnexal masses or tenderness. Clinical Pelvimetry: Pelvimetry clinically assessed as adequate Limited OB ultrasound exam: single intrauterine with possible yolk sac OB Risk Screening: Completed, no positive findings documented. SBIRT Snell L Willis was given the 4P's screening tool. Luther answered as follows: OB Opioid Screening - Last Recorded (since 12/14/2021) Did any of your parents have a problem with alcohol or other drug use? Yes Mom-ETOH Does your partner have a problem with alcohol or other drug use? No In the past, have you had difficulties in your life because of alcohol or other drugs, including prescription medications? No In the past month have you drunk any alcohol or used other drugs? No Are you taking medication for pain during the either prescribed or not? No Based on the screen and further questions, she is considered at Low risk due to:No past or current use. Positive reinforcement of current behavior. Plan to rescreen early third trimester. Teresa Sales MD ASSESSMENT: 22 year old at 6&3 wks gestational age PLAN: 1) Patient oriented to practice. Discussed nutrition, folic acid supplementation, dietary guidelines, exercise, smoking, alcohol, caffeine, and drug use. Discussed routine OB labs including STD/HIV. 2) Check hcg quants & follow up for US in 2 weeks 3) See problem list Follow up in 2 weeks or sooner prn. Teresa Sales MD documented in this encounter [facility] 09-09-2022 Miscellaneous Notes Luther Willis is a 22 year old female seen for PNOB visit.She is 4 para 2 with a history of a miscarriage February 2022. Pt has a history of depression diagnosed in 2014. She has been off medication since 2016. She believes she is doing well off medication. Patient states [facility] Discussed increased risks of depression during and and importance of reporting the development or worsening of symptoms should they occur.Pt denies ever having any suicidal thoughts or tendencies or thoughts of hurting others. Patient has a history of anemia with her previous . She was treated with IV iron infusions. She is currently taking an iron supplement. Patient is complaining of nausea and occasional vomiting in . Dietary considerations discussed . Vitamin B6 recommended. Advised patient to call/come in if she is unable to keep any food or fluids down in a 24-hour period. Patient's second cousin with Down syndrome. Patient's father born with hole in heart. No corrective surgery was done. Patient declines aneuploidy screening. Considering genetic carrier screening testing. Contact information for Thelma schuster given to patient to check on insurance coverage. Sunil Garza RN documented in this encounter [facility] 09-01-2022 Note HNO ID: [id number] Author: Leann Gill APRN.CNM Service: ? Author Type: Frickertron Checker Type: Progress Notes Filed: 09/01/2022 5:43 PM Note Text: Counter Control Operator offered: Patient declines. Luther is a 22 year old who presents for an annual gynecologic exam without complaints. LMP 07/27/22 and missed last month. Took 2 HPT and had 1 positive and 1 negative result. Desires . Menses: cycles every 28 days and lasting 4-5 days of flow. 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 History LMP: 07/27/2022, Unknown Age at Menarche: Age at First : Age at Menopause: Cafeteria Associate History Comments: Sexual Activity: Yes; Male Contraception: No contraception data on record PAST MEDICAL HISTORY Diagnosis Date Anemia Arthritis hips Congenital pes planus 03/30/2012 mastitis with Mental disorder Migraine without status migrainosus, not intractable 11/03/2015 Tendonitis 03/30/2012 PAST SURGICAL HISTORY Procedure Laterality Date NONE FAMILY HISTORY Problem Relation Age of Onset No Known Problems Mother Asthma Father No Known Problems Sister No Known Problems Sister No Known Problems Sister No Known Problems Sister No Known Problems Brother No Known Problems Brother Breast Cancer Maternal Grandmother Heart Failure Maternal Grandmother Heart Maternal Grandfather Hypertension Paternal Grandmother COPD Paternal Grandmother Diabetes Paternal Grandfather Cancer Paternal Grandfather Hypertension Paternal Grandfather Heart Paternal Uncle 30 pacemaker No Known Problems Son SOCIAL HISTORY Social History Tobacco Use Smoking status: Former Years: 1.00 Types: Cigarettes Quit date: 02/27/2019 Years since quittin.5 Smokeless tobacco: Never Tobacco comments: vaping Vaping Use Vaping Use: Former Substance Use Topics Alcohol use: Not Currently Drug use: Never REVIEW OF SYSTEMS Abdomen: No abdominal pain, vomiting, diarrhea. Positive for nausea, constipation and emesis x couple of times. No bloating, early satiety, indigestion, or increased flatulence. Bladder: No dysuria, gross hematuria, urinary frequency, urinary urgency, or incontinence. Breast: No breast lumps, nipple d/c, overlying skin changes, redness or skin retraction and breast tenderness. Allergies and current medication updated:Yes EXAM: BP 84/50 Ht 5' 3.5 (1.61m) Wt 110 lb (49.9kg) LMP 07/27/2022 BMI 19.18 kg/(m2). GENERAL: pleasant, female in no apparent distress HEENT: Normocephalic, atraumatic, mucus membranes moist, and no lesions NECK: Supple, full range of motion, no adenopathy, and thyroid normal DERMATOLOGY: Normal and without lesions BREAST: soft, non-tender, symmetric, no dominant mass, normal nipple-areolar complex, no lymphadenopathy, and no nipple discharge CHEST: Normal inspiratory effort ABDOMEN: soft, non-tender, and no masses PELVIC: external genitalia normal, normal Bartholin's glands, urethra, Fitzgerald's glands, no vulvar lesions, no cervical lesions, good vaginal support, physiologic discharge present, normal appearing perineal body and perianal region BIMANUAL: uterus normal size, shape and consistency, no adnexal masses, non-tender, and no cervical motion tenderness RECTOVAGINAL: deferred. NEURO: alert and oriented x3,exam grossly non-focal EXTREMITIES: normal ASSESSMENT/PLAN: 1) Health maintenance: Pap/HPV up to date. 2) Contraception: none- Desires - HCG urine - POSITIVE - Start vitamins daily 3) STD screening: Declined STD check. 4) Follow up 3-4 weeks for PNOB and NOB [facility] History of Presen t illness Narrative Counter Control Operator offered: Patient declines. Luther is a 22 year old who presents for an annual gynecologic exam without complaints. LMP 07/27/22 and missed last month. Took 2 HPT and had 1 positive and 1 negative result. Desires . Menses: cycles every 28 days and lasting 4-5 days of flow. 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 History LMP: 07/27/2022, Unknown Age at Menarche: Age at First : Age at Menopause: Cafeteria Associate History Comments: Sexual Activity: Yes; Male Contraception: No contraception data on record PAST MEDICAL HISTORY Diagnosis Date Anemia Arthritis hips Congenital pes planus 03/30/2012 mastitis with Mental disorder Migraine without status migrainosus, not intractable 11/03/2015 Tendonitis 03/30/2012 PAST SURGICAL HISTORY Procedure Laterality Date NONE FAMILY HISTORY Problem Relation Age of Onset No Known Problems Mother Asthma Father No Known Problems Sister No Known Problems Sister No Known Problems Sister No Known Problems Sister No Known Problems Brother No Known Problems Brother Breast Cancer Maternal Grandmother Heart Failure Maternal Grandmother Heart Maternal Grandfather Hypertension Paternal Grandmother COPD Paternal Grandmother Diabetes Paternal Grandfather Cancer Paternal Grandfather Hypertension Paternal Grandfather Heart Paternal Uncle 30 pacemaker No Known Problems Son SOCIAL HISTORY Social History Tobacco Use Smoking status: Former Years: 1.00 Types: Cigarettes Quit date: 02/27/2019 Years since quittin.5 Smokeless tobacco: Never Tobacco comments: vaping Vaping Use Vaping Use: Former Substance Use Topics Alcohol use: Not Currently Drug use: Never REVIEW OF SYSTEMS Abdomen: No abdominal pain, vomiting, diarrhea. Positive for nausea, constipation and emesis x couple of times. No bloating, early satiety, indigestion, or increased flatulence. Bladder: No dysuria, gross hematuria, urinary frequency, urinary urgency, or incontinence. Breast: No breast lumps, nipple d/c, overlying skin changes, redness or skin retraction and breast tenderness. Allergies and current medication updated:Yes EXAM: BP 84/50 Ht 5' 3.5 (1.61m) Wt 110 lb (49.9kg) LMP 07/27/2022 BMI 19.18 kg/(m^2). GENERAL: pleasant, female in no apparent distress HEENT: Normocephalic, atraumatic, mucus membranes moist, and no lesions NECK: Supple, full range of motion, no adenopathy, and thyroid normal DERMATOLOGY: Normal and without lesions BREAST: soft, non-tender, symmetric, no dominant mass, normal nipple-areolar complex, no lymphadenopathy, and no nipple discharge CHEST: Normal inspiratory effort ABDOMEN: soft, non-tender, and no masses PELVIC: external genitalia normal, normal Bartholin's glands, urethra, Fitzgerald's glands, no vulvar lesions, no cervical lesions, good vaginal support, physiologic discharge present, normal appearing perineal body and perianal region BIMANUAL: uterus normal size, shape and consistency, no adnexal masses, non-tender, and no cervical motion tenderness RECTOVAGINAL: deferred. NEURO: alert and oriented x3,exam grossly non-focal EXTREMITIES: normal ASSESSMENT/PLAN: 1) Health maintenance: Pap/HPV up to date. 2) Contraception: none- Desires - HCG urine - POSITIVE - Start vitamins daily 3) STD screening: Declined STD check. 4) Follow up 3-4 weeks for PNOB and NOB Leann Gill APRN.CNM documented in this encounter [facility] 03-12-2022 Note HNO ID: [id number] Author: Chuyita Masters MD Service: ? Author Type: Physician Type: Progress Notes Filed: 03/12/2022 2:51 PM Note Text: SUBJECTIVE: 22 year old female presents for 1 week post-op exam. Pt reports is doing well. Pt reports dull aching pain at times on right lower abdomen but no fever or dysuria. Pt reports minimal bleeding. OBJECTIVE: Incision: None Abdomen: Soft, Non-tender, and No palpable masses PLAN: RTO for annual exams and PRN Declines contraception. Advised on menses after missed ab- pt reports irregular cycles typical Pathology pending Continue PNV reviewed I have reviewed and updated past medical and surgical history, medications and allergies. Chuyita May MD [facility] 03-12-2022 History of Presen t illness Narrative SUBJECTIVE: 22 year old female presents for 1 week post-op exam. Pt reports is doing well. Pt reports dull aching pain at times on right lower abdomen but no fever or dysuria. Pt reports minimal bleeding. OBJECTIVE: Incision: None Abdomen: Soft, Non-tender, and No palpable masses PLAN: RTO for annual exams and PRN Declines contraception. Advised on menses after missed ab- pt reports irregular cycles typical Pathology pending Continue PNV reviewed I have reviewed and updated past medical and surgical history, medications and allergies. Chuyita May MD documented in this encounter [facility] 03-04-2022 Note HNO ID: [id number] Author: Ilir Ramirez MD Service: ? Author Type: Physician Type: Progress Notes Filed: 03/04/2022 11:32 AM Note Text: Pre Procedure Assessment: Luther Willis is a 22 year old here for an IPAS procedure. Patient's last menstrual period was No LMP recorded (lmp unknown). (approximate). Reason for procedure: Missed Anxiolytic Checklist Has ride home? Yes, significant other, Santo Current use of prescribed or non-prescribed opioids or benzos: No Medications: Provided by office:Toradol 60 mg IM - See MAR Prescriptions brought in by patient: Xanax 0.5 mg tablet - 1 tablet @ 0940 Oxycodone IR 5mg- 1 tablet @ 0940 Blood Type: O POSITIVE Hemoglobin: Hemoglobin Date Value Ref Range Status 10/09/2021 13.1 11.5 - 15.5 g/dL Final Rhophylac Administered:No Procedure end time: 1047 Post Procedure Assessment: Time of first post-procedure assessment: 1050 Vitals: BP 98/56 HR 58 SpO2 100 RR 16 Bleeding:Light Time of second post-procedure assessment: 1110 Vitals: BP 88/50 HR 63 SpO2 99 RR 14 Bleeding:Light Pain Ratin/10 Natalie Candelaria RN [facility] 03-04-2022 Note HNO ID: [id number] Author: Ilir Ramirez MD Service: ? Author Type: Physician Type: Progress Notes Filed: 03/04/2022 11:32 AM Note Text: UNIVERSAL PROTOCOL / SAFETY CHECKLIST Procedure to be Performed: IPAS for missed spontaneous Sign In: A Moment of CARE was completed. Personnel directly involved with the procedure wore the appropriate PPE (Personal Protective Equipment). Patient/Surrogate Stated/Verified: PATIENT VERIFIED(optional for EMERGENT procedures): Patient name, Date of , Relevant allergies, and The intended procedure Time Out Communication: Intended patient and procedure match the source documents. Consent documented and matches the intended procedure. Relevant labs, photos, and/or imaging studies have been reviewed. No implant(s) inserted. Brief transvaginal ultrasound was performed which revealed an intrauterine very gestational sac with some debris. Possible yolk sac with possible small embryonic pole less than 5 mm in size with no cardiac activity. Sign Out: SIGN OUT (optional for EMERGENT procedures): All specimen containers correctly labeled. All instruments, equipment, possible retained foreign bodies accounted for. Post-procedure follow-up management communicated and Plan of Care Visit completed when applicable. Ilir Ramirez MD Procedure note: Speculum was placed in the vagina. After prepping the cervix with betadine paracervical block was performed using 10cc of 1% lidocaine with 1:100,000 epi. Cervix was grasped with single tooth tenaculum. Cervix was dilated. Using sterile technique, the Manual Vacuum Aspiration device with size 8 cannula was inserted into the uterus and contents were evacuated. Post-procedure ultrasound confirmed no retained tissue. Post-procedure vital signs were obtained and stable Specimen was sent to pathology Patient tolerated procedure well. PLAN: Patient was advised to observe for signs and symptoms of infection including but not limited to fever, malodorous vaginal discharge and/or pain. Bleeding expectations were reviewed. Follow up: 1-2 weeks or prn. Uncertain of contraception plans Ilir Ramirez MD [facility] 03-04-2022 History of Presen t illness Narrative Pre Procedure Assessment: Luther Willis is a 22 year old here for an IPAS procedure. Patient's last menstrual period was No LMP recorded (lmp unknown). (approximate). Reason for procedure: Missed Anxiolytic Checklist Has ride home? Yes, significant other, Santo Current use of prescribed or non-prescribed opioids or benzos: No Medications: Provided by office:Toradol 60 mg IM - See MAR Prescriptions brought in by patient: Xanax 0.5 mg tablet - 1 tablet @ 0940 Oxycodone IR 5mg- 1 tablet @ 0940 Blood Type: O POSITIVE Hemoglobin: Hemoglobin Date Value Ref Range Status 10/09/2021 13.1 11.5 - 15.5 g/dL Final Rhophylac Administered:No Procedure end time: 1047 Post Procedure Assessment: Time of first post-procedure assessment: 1050 Vitals: BP 98/56 HR 58 SpO2 100 RR 16 Bleeding:Light Time of second post-procedure assessment: 1110 Vitals: BP 88/50 HR 63 SpO2 99 RR 14 Bleeding:Light Pain Ratin/10 Natalie Candelaria RN UNIVERSAL PROTOCOL / SAFETY CHECKLIST Procedure to be Performed: IPAS for missed spontaneous Sign In: A Moment of CARE was completed. Personnel directly involved with the procedure wore the appropriate PPE (Personal Protective Equipment). Patient/Surrogate Stated/Verified: PATIENT VERIFIED(optional for EMERGENT procedures): Patient name, Date of , Relevant allergies, and The intended procedure Time Out Communication: Intended patient and procedure match the source documents. Consent documented and matches the intended procedure. Relevant labs, photos, and/or imaging studies have been reviewed. No implant(s) inserted. Brief transvaginal ultrasound was performed which revealed an intrauterine very gestational sac with some debris. Possible yolk sac with possible small embryonic pole less than 5 mm in size with no cardiac activity. Sign Out: SIGN OUT (optional for EMERGENT procedures): All specimen containers correctly labeled. All instruments, equipment, possible retained foreign bodies accounted for. Post-procedure follow-up management communicated and Plan of Care Visit completed when applicable. Ilir Ramirez MD Procedure note: Speculum was placed in the vagina. After prepping the cervix with betadine paracervical block was performed using 10cc of 1% lidocaine with 1:100,000 epi. Cervix was grasped with single tooth tenaculum. Cervix was dilated. Using sterile technique, the Manual Vacuum Aspiration device with size 8 cannula was inserted into the uterus and contents were evacuated. Post-procedure ultrasound confirmed no retained tissue. Post-procedure vital signs were obtained and stable Specimen was sent to pathology Patient tolerated procedure well. PLAN: Patient was advised to observe for signs and symptoms of infection including but not limited to fever, malodorous vaginal discharge and/or pain. Bleeding expectations were reviewed. Follow up: 1-2 weeks or prn. Uncertain of contraception plans Ilir Ramirez MD documented in this encounter [facility] 03-04-2022 Instructions Natalie Jacobsonmelonie BEYER - 03/04/2022 9:19 AM EDT Information and Instructions: After a Manual Uterine Aspiration (IPAS) Procedure Bleeding Most people have some bleeding after an aspiration procedure. The amount differs for each everyone, ranging from no bleeding to moderate period-like bleeding and lasting for a few days to 2-6 weeks. It is normal to have blood clots when you stand up or use the bathroom during the first few days. It is ok to be as active as you feel ready to be. You may notice more bleeding and cramping during activity. Please call if you are completely soaking through a pad every hour for 2 hours, or passing multiple large clots or larger and larger clots. Cramping Most women have some cramping after the procedure. The amount of discomfort varies, as everyone experiences pain in a different way. Some women find that a heating pad or hot water bottle on the stomach or back helps. If you don t have a heating pad, put some rice into a sock and heat it in the microwave, but beware, it s hot! You may also take ibuprofen (Motrin/ Advil) or naproxen (Aleve). If you can t take either of those medications you may use acetaminophen (Tylenol). Please call if you have severe pain or cramps that are not relieved by the pain medication. Fever Please call if your temperature is 100.4 degrees or higher for more than 2 hours. Fever can be a sign of infection, so call your doctor if you are feeling sick. You may have received a medication called misoprostol, which can cause a fever on the day of your procedure that goes away on it's own and is not concerning. symptoms You may have symptoms such as nausea, breast tenderness, or fatigue that last for a few days after the procedure. You may also notice some nipple discharge or breast swelling. If this occurs, wear a supportive bra and avoid stimulation. You may also use a cold compress. Your test may remain positive for up to 4 weeks. Please call if you have symptoms that last longer than 7 - 10 days. control For most people, it is physically possible (though unlikely) to become in the next 2 - 4 weeks, so it is important to start a control method if you are not planning a right away. Please discuss this with your provider if you have not already chosen a method. If you would like to become soon after this procedure, please discuss this with your doctor. Follow up Most women do not need a follow up appointment. Your doctor may recommend one, or you may choose to schedule one if you have any concerns, problems, or questions. Please do not put anything in your vagina for 1 week (no vaginal intercourse, toys, tampons, or douching). Do not swim or use hot tubs for 1 week. Baths by yourself (do not share water for 2 weeks) and showers are OK. Important Phone Numbers: [facility] Appointments in Information Manager ( Early Assessment Clinics) Celia Elizabeth [facility] at [phone] [facility] at [phone] [facility] [facility] at [phone] After 4:30 PM or on weekends, you may reach the on-call Information Manager by calling the clinic where you were seen. This will automatically transfer you to a contracted answering service, who will then page the appropriate provider. Most calls are returned within 15-20 minutes depending on other direct patient care. When to call the doctor: If your temperature is 100.4 degrees or higher for more than 2 hours. If you have heavy bleeding and soak through more than 2 pads in an hour for 2 hours in a row. If you have severe pain or cramps that are not relieved by the pain medication. LOSS RESOURCES Physical recovery from loss from a spontaneous miscarriage, ectopic , D&C, or a D&E may take several weeks. However, emotional recovery can take longer, and is individualized to each person. Many people have different feelings and experiences with loss or termination. Grief is a normal part of the healing process. Taking time to heal both physically and emotionally after a loss is important. Above all, don t blame yourself. Counseling is available to help you cope with your loss. A loss support group might also be a valuable resource to you and your partner. ONLINE RESOURCES Unspoken Grief: an online miscarriage support resource for miscarriage, stillbirth and loss unspokengrief.org A Heartbreaking Choice: support for diagnosis or termination for medical reasons. http://www.GOGETMi / ?.??. [place] [employer]/ [facility]: ending a for a abnormality http://www.healthtalkonline.org/ Pregnancy_children/Ending_a_preg nancy_for_fetal_abnormality Ending a Wanted : support for patients and families ending a after or maternal medical diagnosis https://endingawantedpregnancy.c om Radha Ivonne: one person's story about loss and collected resources. http://www.defendReply.io.[employer] Erin Gift: headquarters in [place] but with online support group https://www.[employer]/infa fq-znqy-zvllygm-groups.html LOCAL RESOURCES Love Lives On, [facility] https://my.[facility].org/l ocations/[facility]/gunolan t-services/support KishaLBhanu(Families Experiencing Early Loss) [facility] https://consultqd.[facility].org/xtsiehlna-dbphvqcqw-qjtbth sotwk-qhselkc-bxgizyer-grieving- families/ [facility] - counseling services [phone] or toll free at [phone] [facility] Support Groups (not specific to loss) https://my.[facility].org/p atients/information/bereavement/ support-groups [facility] Counselors with experience with families facing the loss of a baby before . This service may be covered by your insurance. If not, [facility] will not turn anyone away because of inability to pay. or [phone] Oliverio Andrew, local counselor, not associated with [facility] [phone] Some of our families have recommended Oliverio Andrew as he specializes in helping families who have had or are facing a loss. This may be covered by your insurance, if not, a sliding scale payment plan is available. BOOKS Our Heartbreaking Choices: Forty-Six Women Share Their Stories of Interrupting a Much-Wanted , By Nandini Hines Sorrow: Loss-Guidance and Support for You and Your Family, By Amina Lou and Dwight Virk Unspeakable Losses: Healing from Miscarriage, , and other Loss, By Regine Muñoz Empty Cradle, Broken Heart: Surviving the of your Baby, By Amara Ring Empty Arms: Coping with Miscarriage, Stillbirth, and Infant , By Wellington White I Love You Still: A Memorial Baby Book, By Asya Mathew Understanding Your Grief: Ten Essential Touchstones for Finding Hope and Healing Your Heart, By Horacio Chacon BOOKS FOR CHILDREN We Were Gonna Have a Baby, But We had an Aakash Instead, By Tessa Pichardo My Sibling Still, By Socorro Pedro The Goodbye Book, By Jeronimo Del Castillo Something Happened, By Melida Moreno No New Baby, By Tiana Mancini The Invisible String, By Kirk More Our Baby , by Yuli Schneider (two books, one for surgical termination and one for induction of labor) documented in this encounter [facility] 03-02-2022 Note HNO ID: [id number] Author: Teresa Sales MD Service: ? Author Type: Physician Type: Progress Notes Filed: 03/02/2022 1:13 PM Note Text: Luther Willis is a 22 year old female who presents for missed . HPI: Patient presents with missed . She denies vaginal bleeding or pelvic pain. 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 History Comments: Sexual Activity: Yes; Male Contraception: No contraception data on record PAST MEDICAL HISTORY Diagnosis Date Anemia Arthritis hips Congenital pes planus 03/30/2012 mastitis with Mental disorder Migraine without status migrainosus, not intractable 11/03/2015 Tendonitis 03/30/2012 PAST SURGICAL HISTORY Procedure Laterality Date NONE FAMILY HISTORY Problem Relation Age of Onset No Known Problems Mother Asthma Father No Known Problems Sister No Known Problems Sister No Known Problems Sister No Known Problems Sister No Known Problems Brother No Known Problems Brother Breast Cancer Maternal Grandmother Heart Failure Maternal Grandmother Heart Maternal Grandfather Hypertension Paternal Grandmother COPD Paternal Grandmother Diabetes Paternal Grandfather Cancer Paternal Grandfather Hypertension Paternal Grandfather Heart Paternal Uncle 30 pacemaker No Known Problems Son Social History Tobacco Use Smoking status: Former Years: 1.00 Types: Cigarettes Quit date: 02/27/2019 Years since quittin.0 Smokeless tobacco: Never Tobacco comments: vaping Vaping Use Vaping Use: Never used Substance Use Topics Alcohol use: Not Currently Drug use: Never Current Outpatient Medications Medication Sig ondansetron (ZOFRAN) 4 mg tablet Take 1 tablet by mouth every 8 hours as needed for nausea/vomiting. PNV no.95/ferrous fum/folic ac ( ORAL) Take by mouth. ALPRAZolam (XANAX) 0.5 mg tablet Take 1 tablet by mouth twice daily as needed for up to 1 day. Take prior to procedure. doxycycline hyclate (VIBRAMYCIN) 100 mg capsule Take 2 capsules by mouth one time only for 1 dose. After the procedure. oxyCODONE IR (ROXICODONE) 5 mg immediate release tablet Take 1 tablet by mouth every 8 hours as needed for pain for up to 1 day. Take prior to procedure. Current Facility-Administered Medications Medication Dose Route Frequency keTORolac 30 mg injection (TORADOL) 30 mg INTRAMUSCULAR ONCE Allergies As of Date: 03/02/2022 Allergen Noted Reaction PENICILLINS 07/26/2011 Hives Fully Assessed 03/02/2022 Allergies and current medication updated:Yes EXAM: BP 92/60 Temp (Src) 98.2 (Left Tympanic) Wt 99 lb 9.6 oz (45.2kg) GENERAL: pleasant, female in no apparent distress PELVIC: external genitalia normal, no vulvar lesions, normal appearing perineal body and perianal region 22yo female with missed Repeat pelvic US today again shows IUP with CRL measuring @ 6AND2 with no FCA. Again this is consistent with a missed . Patient counseling on R/B/A of medical vs surgical treatment options. She wishes to proceed with in off IPAS with this . All questions answered AND medications sent to pharmacy. Patient aware to bring them all with her on . Medical Decision Making: Problems: Low: Acute, uncomplicated illness or injury Data: Unique test result(s) reviewed: 3+ Risk: Moderate: Moderate risk from testing/treatment and Drug management Medical Decision Making Level: 4 - Moderate Teresa Sales MD [facility] 03-02-2022 Note HNO ID: [id number] Author: Teresa Sales MD Service: ? Author Type: Physician Type: Progress Notes Filed: 03/02/2022 1:13 PM Note Text: See other note [facility] 03-02-2022 Instructions Natalie Candelaria RN - 03/02/2022 11:20 AM EDT Preparing for Your Procedure - Manual Vacuum Aspiration (MVA) or Ipas procedure What is it? This is a simple procedure that uses suction to remove tissue or blood clots from the uterus. A local pain medication is used to numb the cervix and medicines to reduce pain and anxiety may also be offered. A cannula is a thin tube that is guided through the cervical opening into the uterus. A handheld suction device is attached to the tube and together they are used to remove the contents of the uterus. It takes less than ten minutes. When is the procedure done? This procedure is used to remove tissue when a person has experienced a miscarriage. It is sometimes used to help doctors diagnose the location of tissue (inside the uterus or not). It is also sometimes used to clear blood clots from the uterus in someone bleeding heavily. Is it safe? Yes, the procedure is safe. Having this procedure done does not lower your chance of getting again. Serious complications are very rare. Advantages Simple and safe Can be done in an outpatient medical office Over quickly Very effective at removing tissue Disadvantages There is a 1-2 % percent chance it will be incomplete and need to be repeated. Serious complications like infection or damage to the uterus are possible but very rare and occur in less than 0.5% of cases. What to expect You can expect to have some cramping during and after the procedure. The amount of discomfort varies as everyone experiences pain in a different way. Your doctor will talk to you about ways to make the discomfort manageable. You will have some bleeding after the procedure, usually equivalent to a light or moderate period and lasting for a few days to 2 weeks. [facility] Appointments in Information Manager ( Early Assessment Clinics) Ecliamaria a Elizabeth [facility] at [phone] [facility] at [phone] [facility] at [phone] After 4:30 PM or on weekends, you may reach the on-call Information Manager by calling the clinic where you were seen. This will automatically transfer you to a contracted answering service, who will then page the appropriate provider. Most calls are returned within 15-20 minutes depending on other direct patient care. LOSS RESOURCES Many people have different feelings and experiences with loss or termination. Grief can be a normal part of the healing process. Taking time to heal both physically and emotionally after a loss is important. Counseling is available to help you cope with your loss. A loss support group might also be a valuable resource to you and your family. Ask your healthcare provider for more information about counseling and support groups. Online Resources Unspoken Grief: an online miscarriage support resource for miscarriage, stillbirth and loss unspokengrief.org A Heartbreaking Choice: support for diagnosis or termination for medical reasons. http://www.GOGETMi / ?.??. [place] [employer]/ [facility]: ending a for a abnormality http://www.healthtalkonline.org/ Pregnancy_children/Ending_a_preg nancy_for_fetal_abnormality Ending a Wanted : support for patients and families ending a after or maternal medical diagnosis https://endingawantedpregnancy.c om Defending Ivonne: one person's story about loss and collected resources. Trangnding ivonne. [employer]: headquarters in [place] but with online support group https://www.[employer].org/infa pj-kjhi-bqbxvbl-groups.html Local Resources Love Lives On, [facility] Support Group https://my.[facility].org/l ocations/[facility]/maggie t-services/support FBhanuEBhanuE.LBhanu(Families Experiencing Early Loss) [facility] Support Group https://consultqd.[facility].org/rnshcszrw-uclvtvtsi-rhcbjj hukcc-zygbntj-pizbkixz-grieving- families/ [facility] - counseling services [phone] or toll free at [phone] [facility] Support Groups (not specific to loss) https://my.[facility].org/p atients/information/bereavement/ support-groups [facility].org [address], [place] [address] [phone] ([phone]) Offers quarterly loss support groups, individual and couples bereavement counseling, remembrance services and more [facility] [place] Counselors with experience with families facing the loss of a baby before . This service may be covered by your insurance. If not, [facility] will not turn anyone away because of inability to pay. or [phone] Oliverio Andrew, local counselor, not associated with [facility] [phone] Some of our families have recommended Oliverio Andrew as he specializes in helping families who have had or are facing a loss. This may be covered by your insurance, if not, a sliding scale payment plan is available. BOOKS Our Heartbreaking Choices: Forty-Six Women Share Their Stories of Interrupting a Much-Wanted , By Nandini Donnelly Silent Sorrow: Loss-Guidance and Support for You and Your Family, By Amina Lou and Dwight Virk Unspeakable Losses: Healing from Miscarriage, , and other Loss, By Regine Muñoz Empty Cradle, Broken Heart: Surviving the of your Baby, By Amara Ring Empty Arms: Coping with Miscarriage, Stillbirth, and , By Wellington White I Love You Still: A Memorial Baby Book, By Asya Mathew Understanding Your Grief: Ten Essential Touchstones for Finding Hope and Healing Your Heart, By Horacio Chacon BOOKS FOR CHILDREN We Were Gonna Have a Baby, But We had an Aakash Instead, By Tessa Pichardo My Sibling Still, By Socorro Pedro The Goodbye Book, By Jeronimo Del Castillo Something Happened, By Melida Moreno No New Baby, By Tiana Mancini The Invisible String, By Kirk More Our Baby , by Yuli Schneider (two books, one for surgical termination and one for induction of labor) documented in this encounter [facility] 03-02-2022 History of Presen t illness Narrative Luther Willis is a 22 year old female who presents for missed . HPI: Patient presents with missed . She denies vaginal bleeding or pelvic pain. 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 History Comments: Sexual Activity: Yes; Male Contraception: No contraception data on record PAST MEDICAL HISTORY Diagnosis Date Anemia Arthritis hips Congenital pes planus 03/30/2012 mastitis with Mental disorder Migraine without status migrainosus, not intractable 11/03/2015 Tendonitis 03/30/2012 PAST SURGICAL HISTORY Procedure Laterality Date NONE FAMILY HISTORY Problem Relation Age of Onset No Known Problems Mother Asthma Father No Known Problems Sister No Known Problems Sister No Known Problems Sister No Known Problems Sister No Known Problems Brother No Known Problems Brother Breast Cancer Maternal Grandmother Heart Failure Maternal Grandmother Heart Maternal Grandfather Hypertension Paternal Grandmother COPD Paternal Grandmother Diabetes Paternal Grandfather Cancer Paternal Grandfather Hypertension Paternal Grandfather Heart Paternal Uncle 30 pacemaker No Known Problems Son Social History Tobacco Use Smoking status: Former Years: 1.00 Types: Cigarettes Quit date: 02/27/2019 Years since quittin.0 Smokeless tobacco: Never Tobacco comments: vaping Vaping Use Vaping Use: Never used Substance Use Topics Alcohol use: Not Currently Drug use: Never Current Outpatient Medications Medication Sig ondansetron (ZOFRAN) 4 mg tablet Take 1 tablet by mouth every 8 hours as needed for nausea/vomiting. PNV no.95/ferrous fum/folic ac ( ORAL) Take by mouth. ALPRAZolam (XANAX) 0.5 mg tablet Take 1 tablet by mouth twice daily as needed for up to 1 day. Take prior to procedure. doxycycline hyclate (VIBRAMYCIN) 100 mg capsule Take 2 capsules by mouth one time only for 1 dose. After the procedure. oxyCODONE IR (ROXICODONE) 5 mg immediate release tablet Take 1 tablet by mouth every 8 hours as needed for pain for up to 1 day. Take prior to procedure. Current Facility-Administered Medications Medication Dose Route Frequency keTORolac 30 mg injection (TORADOL) 30 mg INTRAMUSCULAR ONCE Allergies As of Date: 03/02/2022 Allergen Noted Reaction PENICILLINS 07/26/2011 Hives Fully Assessed 03/02/2022 Allergies and current medication updated:Yes EXAM: BP 92/60 Temp (Src) 98.2 (Left Tympanic) Wt 99 lb 9.6 oz (45.2kg) GENERAL: pleasant, female in no apparent distress PELVIC: external genitalia normal, no vulvar lesions, normal appearing perineal body and perianal region 22yo female with missed Repeat pelvic US today again shows IUP with CRL measuring @ 6&2 with no FCA. Again this is consistent with a missed . Patient counseling on R/B/A of medical vs surgical treatment options. She wishes to proceed with in off IPAS with this . All questions answered & medications sent to pharmacy. Patient aware to bring them all with her on . Medical Decision Making: Problems: Low: Acute, uncomplicated illness or injury Data: Unique test result(s) reviewed: 3+ Risk: Moderate: Moderate risk from testing/treatment and Drug management Medical Decision Making Level: 4 - Moderate Teresa Sales MD See other note documented in this encounter [facility] 03-02-2022 Miscellaneous Notes Patient has appointment in office today. Yue Donald RN documented in this encounter [facility] 02-26-2022 Miscellaneous Notes Done Teresa Sales MD Patient would like a Rx for Zofran sent to [facility] in [place]. Have her try tylenol and if needed can order zofran. Make sure she has follow up in the next 1-2 weeks. Patient seen at office on 02/22/2022 and dx w/ a missed ab. Pt. states that she is not having any vaginal bleeding but is having random mild to moderate menstrual like cramps. Reports that headaches began yesterday and rates pain a 5 out of 10. Has not taking any medications to relieve DANIELS. Patient states that her nausea began prior to DANIELS and is only able to keep water down and limited solid foods for past 2 days and is c/o feeling light headed most of the day. Denies fever. Next appointment is 03/11/2022. Please advise. documented in this encounter [facility] 02-24-2022 Miscellaneous Notes Reviewed bleeding precautions. Follow up scheduled for 03/11/22 with DM. Advised patient to call and notify the office if she starts bleeding or has other concerns. Martha Jay RN NOted. Please schedule her a follow up w/ a provider in approx 2 weeks or tell her to contact us if she has other concerns in the interim. Review bleeding precautions. Thanks. Ilir Ramirez MD Called and spoke with patient to inquire how she would like to proceed. Patient would like to allow her body to go naturally. Declines wanting medication to assist. Declines needing an appointment to discuss her options further. Martha Jay RN ----- Message from Ilir Ramirez MD sent at 02/23/2022 12:04 PM EDT ----- Please call patient on 02/24 if we haven't heard from her to see if she has decided how she wants to proceed. She may need appointment to discuss further. Thanks. Ilir Ramirez MD documented in this encounter [facility] 02-22-2022 Note HNO ID: [id number] Author: Chuyita Masters MD Service: ? Author Type: Physician Type: Progress Notes Filed: 02/22/2022 5:01 PM Note Text: Luther Willis is a 22 year old female who presents for follow-up early . Patient was seen last week by Dr. Vannesa Sales noted to be 6 weeks 3 days with no cardiac activity. Patient had a repeat ultrasound today where the pole is measuring the same with no cardiac activity appreciated despite rising hCG levels. Patient denies any pelvic pain or vaginal bleeding. Patient is aware that this was likely a nonviable . Patient offers no other concerns at this time. 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 History Comments: Sexual Activity: Yes; Male Contraception: No contraception data on record PAST MEDICAL HISTORY Diagnosis Date Anemia Arthritis hips Congenital pes planus 03/30/2012 mastitis with Mental disorder Migraine without status migrainosus, not intractable 11/03/2015 Tendonitis 03/30/2012 PAST SURGICAL HISTORY Procedure Laterality Date NONE FAMILY HISTORY Problem Relation Age of Onset No Known Problems Mother Asthma Father No Known Problems Sister No Known Problems Sister No Known Problems Sister No Known Problems Sister No Known Problems Brother No Known Problems Brother Breast Cancer Maternal Grandmother Heart Failure Maternal Grandmother Heart Maternal Grandfather Hypertension Paternal Grandmother COPD Paternal Grandmother Diabetes Paternal Grandfather Cancer Paternal Grandfather Hypertension Paternal Grandfather Heart Paternal Uncle 30 pacemaker No Known Problems Son Social History Tobacco Use Smoking status: Former Years: 1.00 Types: Cigarettes Quit date: 02/27/2019 Years since quittin.9 Smokeless tobacco: Never Tobacco comments: vaping Vaping Use Vaping Use: Never used Substance Use Topics Alcohol use: Not Currently Drug use: Never Current Outpatient Medications Medication Sig PNV no.95/ferrous fum/folic ac ( ORAL) Take by mouth. No current facility-administered medications for this visit. Allergies As of Date: 02/22/2022 Allergen Noted Reaction PENICILLINS 07/26/2011 Hives Fully Assessed 02/18/2022 REVIEW OF SYSTEMS Abdomen: no pain Bladder: no dysuria .. Expanded ROS: no fever Allergies and current medication updated:Yes EXAM: BP 98/56 Wt 100 lb (45.4kg) GENERAL: pleasant, female in no apparent distress HEENT: Normocephalic and atraumatic NECK: full range of motion DERMATOLOGY: Normal, without lesions, non-icteric, and non-hirsute NEURO: alert and oriented x3,exam grossly non-focal EXTREMITIES: normal ASSESSMENT AND PLAN: Encounter Diagnosis ICD-10-CM 1. Missed O02.1 2. hCG levels reviewed although trending up official ultrasounds are consistent with a missed AB approximately 6 weeks 3 days. Patient was counseled on the findings today she was also counseled on the risk benefits and alternatives of treatment for missed AB including expectant management versus medical management with Cytotec versus surgical management. Patient is unsure what she wants to do at this time and would like to think about it and will notify the office. Emotional support given- support person is present. 3. Labs and ultrasounds reviewed. Medical Decision Making: Problems: Moderate: New problem with uncertain prognosis Data: Unique test result(s) reviewed: 2 Risk: Moderate: Moderate risk from testing/treatment Medical Decision Making Level: 4 - Moderate Chuyita May MD [facility] 02-22-2022 History of Presen t illness Narrative Luther Willis is a 22 year old female who presents for follow-up early . Patient was seen last week by Dr. Vannesa Sales noted to be 6 weeks 3 days with no cardiac activity. Patient had a repeat ultrasound today where the pole is measuring the same with no cardiac activity appreciated despite rising hCG levels. Patient denies any pelvic pain or vaginal bleeding. Patient is aware that this was likely a nonviable . Patient offers no other concerns at this time. 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 History Comments: Sexual Activity: Yes; Male Contraception: No contraception data on record PAST MEDICAL HISTORY Diagnosis Date Anemia Arthritis hips Congenital pes planus 03/30/2012 mastitis with Mental disorder Migraine without status migrainosus, not intractable 11/03/2015 Tendonitis 03/30/2012 PAST SURGICAL HISTORY Procedure Laterality Date NONE FAMILY HISTORY Problem Relation Age of Onset No Known Problems Mother Asthma Father No Known Problems Sister No Known Problems Sister No Known Problems Sister No Known Problems Sister No Known Problems Brother No Known Problems Brother Breast Cancer Maternal Grandmother Heart Failure Maternal Grandmother Heart Maternal Grandfather Hypertension Paternal Grandmother COPD Paternal Grandmother Diabetes Paternal Grandfather Cancer Paternal Grandfather Hypertension Paternal Grandfather Heart Paternal Uncle 30 pacemaker No Known Problems Son Social History Tobacco Use Smoking status: Former Years: 1.00 Types: Cigarettes Quit date: 02/27/2019 Years since quittin.9 Smokeless tobacco: Never Tobacco comments: vaping Vaping Use Vaping Use: Never used Substance Use Topics Alcohol use: Not Currently Drug use: Never Current Outpatient Medications Medication Sig PNV no.95/ferrous fum/folic ac ( ORAL) Take by mouth. No current facility-administered medications for this visit. Allergies As of Date: 02/22/2022 Allergen Noted Reaction PENICILLINS 07/26/2011 Hives Fully Assessed 02/18/2022 REVIEW OF SYSTEMS Abdomen: no pain Bladder: no dysuria .. Expanded ROS: no fever Allergies and current medication updated:Yes EXAM: BP 98/56 Wt 100 lb (45.4kg) GENERAL: pleasant, female in no apparent distress HEENT: Normocephalic and atraumatic NECK: full range of motion DERMATOLOGY: Normal, without lesions, non-icteric, and non-hirsute NEURO: alert and oriented x3,exam grossly non-focal EXTREMITIES: normal ASSESSMENT AND PLAN: Encounter Diagnosis ICD-10-CM 1. Missed O02.1 2. hCG levels reviewed although trending up official ultrasounds are consistent with a missed AB approximately 6 weeks 3 days. Patient was counseled on the findings today she was also counseled on the risk benefits and alternatives of treatment for missed AB including expectant management versus medical management with Cytotec versus surgical management. Patient is unsure what she wants to do at this time and would like to think about it and will notify the office. Emotional support given- support person is present. 3. Labs and ultrasounds reviewed. Medical Decision Making: Problems: Moderate: New problem with uncertain prognosis Data: Unique test result(s) reviewed: 2 Risk: Moderate: Moderate risk from testing/treatment Medical Decision Making Level: 4 - Moderate Chuyita May MD documented in this encounter [facility] 02-19-2022 Miscellaneous Notes Dating US and visit with DM scheduled for Tuesday. Martha Jay RN hormone level going up. Recommend repeat US next week. Formal US ordered. Schedule early next week and doc appointment so can discuss options if miscarriage diagnosed. Ilir Ramirez MD Please review hcg quant for KJ. hCG Quantitative, Blood Date Value 02/18/2022 95,009.0 mIU/mL 02/15/2022 87,955.0 mIU/mL Natalie Candelaria RN documented in this encounter [facility] 02-18-2022 Note HNO ID: [id number] Author: Teresa Sales MD Service: ? Author Type: Physician Type: Progress Notes Filed: 02/18/2022 5:02 PM Note Text: Luther Willis is a 22 year old female who presents for follow up. HPI: Patient presents to discuss US and lab results. She denies complaints today. 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 History Comments: Sexual Activity: Yes; Male Contraception: No contraception data on record PAST MEDICAL HISTORY Diagnosis Date Anemia Arthritis hips Congenital pes planus 03/30/2012 mastitis with Mental disorder Migraine without status migrainosus, not intractable 11/03/2015 Tendonitis 03/30/2012 PAST SURGICAL HISTORY Procedure Laterality Date NONE FAMILY HISTORY Problem Relation Age of Onset No Known Problems Mother Asthma Father No Known Problems Sister No Known Problems Sister No Known Problems Sister No Known Problems Sister No Known Problems Brother No Known Problems Brother Breast Cancer Maternal Grandmother Heart Failure Maternal Grandmother Heart Maternal Grandfather Hypertension Paternal Grandmother COPD Paternal Grandmother Diabetes Paternal Grandfather Cancer Paternal Grandfather Hypertension Paternal Grandfather Heart Paternal Uncle 30 pacemaker No Known Problems Son Social History Tobacco Use Smoking status: Former Years: 1.00 Types: Cigarettes Quit date: 02/27/2019 Years since quittin.9 Smokeless tobacco: Never Tobacco comments: vaping Vaping Use Vaping Use: Never used Substance Use Topics Alcohol use: Not Currently Drug use: Never Current Outpatient Medications Medication Sig PNV no.95/ferrous fum/folic ac ( ORAL) Take by mouth. No current facility-administered medications for this visit. Allergies As of Date: 02/18/2022 Allergen Noted Reaction PENICILLINS 07/26/2011 Hives Fully Assessed 02/18/2022 Allergies and current medication updated:Yes EXAM: BP 100/56 Wt 101 lb 3.2 oz (45.9kg) GENERAL: pleasant, female in no apparent distress ASSESSMENT AND PLAN: 22yo female with early US on 02/15 showed IUP measuring 6AND3 with no FCA. HCG quant reviewed. Plan for repeat hcg quant and management based on that. If increasing will check repeat US next week. If decreasing patient aware it will confirm a missed . Discussed R/B/A of treatment options if hcg quant confirms missed and patient would likely want to proceed with cytotec. Bleeding precautions reviewed AND all questions answered. Medical Decision Making: Problems: Moderate: New problem with uncertain prognosis Data: Unique test result(s) reviewed: 2 Unique test(s) ordered: 1 Risk: Low: Low risk from testing/treatment Medical Decision Making Level: 4 - Moderate Teresa Sales MD [facility] 02-15-2022 Miscellaneous Notes I ordered quants. Thanks Ilir Ramirez MD Patient seen today for ultrasound with uncertain dates. Please file order for quants. Keep phone note open for results. Will schedule appointment for end of week documented in this encounter [facility] 02-08-2022 Note HNO ID: [id number] Author: Leann Gill APRN.DASHA Service: ? Author Type: Frickertron Checker Type: Progress Notes Filed: 02/08/2022 9:09 AM Note Text: Luther is a 22 year old who presents for an annual gynecologic exam without complaints. Seen at Urgent care last week and had positive test on 02/01/22. Reports unsure of last period but thinks sometime in October. not planned but accepting. Currently has 1.5 year old daughter and just stopped . Menses: Irregular - thinks last period was 11/15/21. Contraception: none HPV vaccine: Yes Last Pap: 03/20/2019 normal HPV: negative History of abnormal pap: No Last mammogram: never Sexually active: Yes History of STDS: None Time with current partner: 3 years- [place] Pain with intercourse: No Postcoital bleeding: No Exercise: N/a Diet: Regular Seatbelt use: Yes 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 History Comments: Sexual Activity: Yes; Male Contraception: No contraception data on record PAST MEDICAL HISTORY Diagnosis Date Anemia Arthritis hips Congenital pes planus 03/30/2012 mastitis with Mental disorder Migraine without status migrainosus, not intractable 11/03/2015 Tendonitis 03/30/2012 PAST SURGICAL HISTORY Procedure Laterality Date NONE FAMILY HISTORY Problem Relation Age of Onset No Known Problems Mother Asthma Father No Known Problems Sister No Known Problems Sister No Known Problems Sister No Known Problems Sister No Known Problems Brother No Known Problems Brother Breast Cancer Maternal Grandmother Heart Failure Maternal Grandmother Heart Maternal Grandfather Hypertension Paternal Grandmother COPD Paternal Grandmother Diabetes Paternal Grandfather Cancer Paternal Grandfather Hypertension Paternal Grandfather Heart Paternal Uncle 30 pacemaker No Known Problems Son SOCIAL HISTORY Social History Tobacco Use Smoking status: Former Years: 1.00 Types: Cigarettes Quit date: 02/27/2019 Years since quittin.9 Smokeless tobacco: Never Tobacco comments: vaping Vaping Use Vaping Use: Never used Substance Use Topics Alcohol use: Not Currently Drug use: Never REVIEW OF SYSTEMS Abdomen: No abdominal pain, vomiting, diarrhea, or constipation. No bloating, early satiety, indigestion, or increased flatulence. Positive for nausea Bladder: No dysuria, gross hematuria, urinary frequency, urinary urgency, or incontinence. Breast: No breast lumps, nipple d/c, overlying skin changes, redness or skin retraction. Allergies and current medication updated:Yes EXAM: Wt 101 lb 12.8 oz (46.2kg) LMP 11/16/2021 GENERAL: pleasant, female in no apparent distress HEENT: Normocephalic, atraumatic, mucus membranes moist, and no lesions NECK: Supple, full range of motion, no adenopathy, and thyroid normal DERMATOLOGY: Normal, without lesions, non-icteric, and non-hirsute BREAST: soft, non-tender, symmetric, no dominant mass, normal nipple-areolar complex, no lymphadenopathy, and no nipple discharge CHEST: Normal inspiratory effort ABDOMEN: soft, non-tender, and no masses PELVIC: external genitalia normal, normal Bartholin's glands, urethra, Fitzgerald's glands, no vulvar lesions, no cervical lesions, good vaginal support, physiologic discharge present, normal appearing perineal body and perianal region, cervix friable BIMANUAL: no adnexal masses, non-tender, and enlarged uterus 5-6 week size RECTOVAGINAL: patient declined. NEURO: alert and oriented x3,exam grossly non-focal EXTREMITIES: normal ASSESSMENT/PLAN: 1) Health maintenance: Pap done with reflex HPV. Nutrition, exercise and routine health maintenance exams reviewed. 2) Contraception: none. 3) STD screening: Accepted STD check for Gonorrhea and Chlamydia. 4) Positive test- UNKNOWN gestational age- Dating US and PNOB scheduled. Leann Gill APRN.[facility] 02-08-2022 History of Presen t illness Narrative Luther is a 22 year old who presents for an annual gynecologic exam without complaints. Seen at Urgent care last week and had positive test on 02/01/22. Reports unsure of last period but thinks sometime in October. not planned but accepting. Currently has 1.5 year old daughter and just stopped . Menses: Irregular - thinks last period was 11/15/21. Contraception: none HPV vaccine: Yes Last Pap: 03/20/2019 normal HPV: negative History of abnormal pap: No Last mammogram: never Sexually active: Yes History of STDS: None Time with current partner: 3 years- [place] Pain with intercourse: No Postcoital bleeding: No Exercise: N/a Diet: Regular Seatbelt use: Yes 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 History Comments: Sexual Activity: Yes; Male Contraception: No contraception data on record PAST MEDICAL HISTORY Diagnosis Date Anemia Arthritis hips Congenital pes planus 03/30/2012 mastitis with Mental disorder Migraine without status migrainosus, not intractable 11/03/2015 Tendonitis 03/30/2012 PAST SURGICAL HISTORY Procedure Laterality Date NONE FAMILY HISTORY Problem Relation Age of Onset No Known Problems Mother Asthma Father No Known Problems Sister No Known Problems Sister No Known Problems Sister No Known Problems Sister No Known Problems Brother No Known Problems Brother Breast Cancer Maternal Grandmother Heart Failure Maternal Grandmother Heart Maternal Grandfather Hypertension Paternal Grandmother COPD Paternal Grandmother Diabetes Paternal Grandfather Cancer Paternal Grandfather Hypertension Paternal Grandfather Heart Paternal Uncle 30 pacemaker No Known Problems Son SOCIAL HISTORY Social History Tobacco Use Smoking status: Former Years: 1.00 Types: Cigarettes Quit date: 02/27/2019 Years since quittin.9 Smokeless tobacco: Never Tobacco comments: vaping Vaping Use Vaping Use: Never used Substance Use Topics Alcohol use: Not Currently Drug use: Never REVIEW OF SYSTEMS Abdomen: No abdominal pain, vomiting, diarrhea, or constipation. No bloating, early satiety, indigestion, or increased flatulence. Positive for nausea Bladder: No dysuria, gross hematuria, urinary frequency, urinary urgency, or incontinence. Breast: No breast lumps, nipple d/c, overlying skin changes, redness or skin retraction. Allergies and current medication updated:Yes EXAM: Wt 101 lb 12.8 oz (46.2kg) LMP 11/16/2021 GENERAL: pleasant, female in no apparent distress HEENT: Normocephalic, atraumatic, mucus membranes moist, and no lesions NECK: Supple, full range of motion, no adenopathy, and thyroid normal DERMATOLOGY: Normal, without lesions, non-icteric, and non-hirsute BREAST: soft, non-tender, symmetric, no dominant mass, normal nipple-areolar complex, no lymphadenopathy, and no nipple discharge CHEST: Normal inspiratory effort ABDOMEN: soft, non-tender, and no masses PELVIC: external genitalia normal, normal Bartholin's glands, urethra, Fitzgerald's glands, no vulvar lesions, no cervical lesions, good vaginal support, physiologic discharge present, normal appearing perineal body and perianal region, cervix friable BIMANUAL: no adnexal masses, non-tender, and enlarged uterus 5-6 week size RECTOVAGINAL: patient declined. NEURO: alert and oriented x3,exam grossly non-focal EXTREMITIES: normal ASSESSMENT/PLAN: 1) Health maintenance: Pap done with reflex HPV. Nutrition, exercise and routine health maintenance exams reviewed. 2) Contraception: none. 3) STD screening: Accepted STD check for Gonorrhea and Chlamydia. 4) Positive test- UNKNOWN gestational age- Dating US and PNOB scheduled. Leann Gill APRN.CNM documented in this encounter [facility] 02-01-2022 Note HNO ID: [id number] Author: Tammie Schwarz APRN.CNP Service: ? Author Type: Nurse Practitioner Type: Progress Notes Filed: 02/01/2022 6:48 PM Note Text: Subjective The history is provided by the patient. No chinese language professor was used. HPI Luther Willis is a 22 year old female who presents today for CC of nausea, and vomiting with headache. This started over the past 3 months. She has not had a period for at least 3 months. She has had unprotected sex, possibility of . She also had last week uri symptoms BP 100/58 Pulse 77 Temp 36.9 ?C (98.5 ?F) Resp 16 Wt 45.5 kg (100 lb 3.2 oz) LMP (LMP Unknown) SpO2 100% No BMI 17.20 kg/m? Social History Tobacco Use Smoking status: Former Years: 1.00 Types: Cigarettes Quit date: 02/27/2019 Years since quittin.9 Smokeless tobacco: Never Tobacco comments: vaping Vaping Use Vaping Use: Never used Substance Use Topics Alcohol use: Not Currently Drug use: Never PAST MEDICAL HISTORY Diagnosis Date Anemia Arthritis hips Congenital pes planus 03/30/2012 mastitis with Mental disorder Migraine without status migrainosus, not intractable 11/03/2015 Tendonitis 03/30/2012 I have confirmed and edited as necessary, the [facility] Review of Systems Constitutional: Negative for chills and fever. HENT: Positive for congestion. Negative for ear pain, sinus pain and sore throat. Respiratory: Positive for cough. Negative for sputum production, shortness of breath and wheezing. Cardiovascular: Negative for chest pain. Musculoskeletal: Negative for myalgias. Neurological: Negative for headaches. Objective Physical Exam Vitals and nursing note reviewed. HENT: Head: Normocephalic and atraumatic. Right Ear: Tympanic membrane, ear canal and external ear normal. Left Ear: Tympanic membrane, ear canal and external ear normal. Mouth/Throat: Pharynx: Uvula midline. Cardiovascular: Rate and Rhythm: Normal rate and regular rhythm. Pulmonary: Breath sounds: Normal breath sounds. Lymphadenopathy: Head: Right side of head: No submental, submandibular or tonsillar adenopathy. Left side of head: No submental, submandibular or tonsillar adenopathy. Cervical: No cervical adenopathy. Skin: General: Skin is warm and dry. Neurological: Mental Status: She is alert. Psychiatric: Mood and Affect: Affect normal. ASSESSMENT/PLAN: 1. 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 Viral illness - ICD9: 079.99, ICD10: B34.9 - Discussed viral etiology and rationale for treatment. - Symptomatic treatment with prn analgesia - Supportive care with fluids and rest Home isolation Testing ordered Comfort measures discussed - see patient instructions. When to seek higher level of care Notified in 24-48 hours with results, available on [employer] - 2018 CORONAVIRUS Diagnosis and treatment plan were discussed and questions were answered to the patient's satisfaction. Pt acknowledged understanding of concepts and follow up plan. Specific signs and symptoms that would indicate the need for higher level of care were discussed in detail warranting prompt ER evaluation. Tammie Schwarz APRN.CNP [facility] 02-01-2022 Instructions Tammie Schwarz APRN.CNP - 02/01/2022 6:48 PM EDT covid test ordered You will be notified in 24 -48 hours, results available on [employer] Home isolation until covid results are back Call ob office tomorrow to let know as well as covid results. Rest, increase water intake Motrin or Tylenol as needed for fever or pain. Salt water gargles, chloraseptic spray or lozenges as needed for sore throat. Warm beverages, honey. Nasal saline spray as needed Cool mist humidifier at night * Seek medical care immediately, call 911, go to ER if you have chest pain, difficulty breathing, shortness of breath, inability to swallow. documented in this encounter [facility] 02-01-2022 History of Presen t illness Narrative Subjective The history is provided by the patient. No chinese language professor was used. HPI Luther Willis is a 22 year old female who presents today for CC of nausea, and vomiting with headache. This started over the past 3 months. She has not had a period for at least 3 months. She has had unprotected sex, possibility of . She also had last week uri symptoms BP 100/58 Pulse 77 Temp 36.9 C (98.5 F) Resp 16 Wt 45.5 kg (100 lb 3.2 oz) LMP (LMP Unknown) SpO2 100% No BMI 17.20 kg/m Social History Tobacco Use Smoking status: Former Years: 1.00 Types: Cigarettes Quit date: 02/27/2019 Years since quittin.9 Smokeless tobacco: Never Tobacco comments: vaping Vaping Use Vaping Use: Never used Substance Use Topics Alcohol use: Not Currently Drug use: Never PAST MEDICAL HISTORY Diagnosis Date Anemia Arthritis hips Congenital pes planus 03/30/2012 mastitis with Mental disorder Migraine without status migrainosus, not intractable 11/03/2015 Tendonitis 03/30/2012 I have confirmed and edited as necessary, the [facility] Review of Systems Constitutional: Negative for chills and fever. HENT: Positive for congestion. Negative for ear pain, sinus pain and sore throat. Respiratory: Positive for cough. Negative for sputum production, shortness of breath and wheezing. Cardiovascular: Negative for chest pain. Musculoskeletal: Negative for myalgias. Neurological: Negative for headaches. Objective Physical Exam Vitals and nursing note reviewed. HENT: Head: Normocephalic and atraumatic. Right Ear: Tympanic membrane, ear canal and external ear normal. Left Ear: Tympanic membrane, ear canal and external ear normal. Mouth/Throat: Pharynx: Uvula midline. Cardiovascular: Rate and Rhythm: Normal rate and regular rhythm. Pulmonary: Breath sounds: Normal breath sounds. Lymphadenopathy: Head: Right side of head: No submental, submandibular or tonsillar adenopathy. Left side of head: No submental, submandibular or tonsillar adenopathy. Cervical: No cervical adenopathy. Skin: General: Skin is warm and dry. Neurological: Mental Status: She is alert. Psychiatric: Mood and Affect: Affect normal. ASSESSMENT/PLAN: 1. 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 Viral illness - ICD9: 079.99, ICD10: B34.9 - Discussed viral etiology and rationale for treatment. - Symptomatic treatment with prn analgesia - Supportive care with fluids and rest Home isolation Testing ordered Comfort measures discussed - see patient instructions. When to seek higher level of care Notified in 24-48 hours with results, available on 2018 CORONAVIRUS Diagnosis and treatment plan were discussed and questions were answered to the patient's satisfaction. Pt acknowledged understanding of concepts and follow up plan. Specific signs and symptoms that would indicate the need for higher level of care were discussed in detail warranting prompt ER evaluation. Tammie Schwarz APRN.CNP documented in this encounter [facility] 12-19-2021 History of Presen t illness Narrative Radiology Service Progress Note PATIENT NAME: Luther Willis DATE OF SERVICE: December 19, 2021 TIME: 11:11 AM PATIENT IDENTITY VERIFICATION COMPLETED USING TWO (2) IDENTIFIERS: Name and Date of confirmed by patient verbally. FALL SCREENING: Has the patient had 2 falls in the last year or 1 fall with injury or currently using an Ambulatory Assistive Device (Walker, Cane, Wheelchair, Crutches, etc.)? No PATIENT GENDER DATA: Female. status: : No status: NO. PATIENT RELEVANT IMPLANT DATA REVIEWED: Yes RADIOLOGY DEPARTMENT: General X-ray: Exam(s) Completed: Upper Extremity X-Ray(s): Elbow, left and Wrist, left PERIPHERAL IV DATA: Not applicable SIGNED BY: RT Anabelle(R) December 19, 2021 11:11 AM documented in this encounter [facility] 12-19-2021 History of Presen t illness Narrative Patient presents with: left wrist pain: felll last night Headache: x 3 days HPI: Left wrist pain: Duration: Tripped in a hole last night and injured her left wrist Location: [place] wrist Character: Aching at rest and sharp with use Radiation: Up to the elbow Aggravating: Wrist extension, radial deviation, lifting Relieving: ice Pain relievers: none Associated: Tingling in fingers at time of injury Pertinent negatives: Denies numbness Head pain: Duration: 3 days. PHx of migraine. Location: Left religion and behind the left eye Character: Constant sharp Radiation: No. Aggravating: Light, sound Relieving: Pain relievers: Advil and Excedrin Associated: Nausea, Pertinent negatives: Denies vision change, cough, nasal congestion, rhinorrhea, fever, sore throat PAST MEDICAL HISTORY Diagnosis Date Anemia Arthritis hips Congenital pes planus 03/30/2012 mastitis with Mental disorder Migraine without status migrainosus, not intractable 11/03/2015 Tendonitis 03/30/2012 MEDICATIONS: No prescriptions on file. ALLERGIES: ALLERGIES Allergen Reactions Penicillins Hives VITALS: BP 102/62 Pulse 98 Temp 36.1 C (97 F) (Tympanic) Resp 18 Wt 43.5 kg (96 lb) LMP 09/14/2021 SpO2 98% BMI 16.48 kg/m PHYSICAL EXAM: GEN: pleasant, no acute distress, alert HEENT: PERRL, EOMI, left maxilla tender to palpation, TMs and canals clear, MMM, mucus present on the posterior pharynx. NECK: supple, no lymphadenopathy, no thyromegaly HEART: regular rate, regular rhythm, no murmurs LUNGS: clear to auscultation, no wheezes or crackles, no increased WOB EXT: no clubbing, no cyanosis, no edema ELBOW: Left. Full range of motion with mild discomfort. Tender radial head. Nontender olecranon or medial epicondyle. WRIST: Left. Pain with wrist extension and radial deviation. Ache with full supination. Tender distal radius, aggravated by palpating the surrounding carpal area. Nontender distal ulna. Palpation of the mid radius induces wrist pain. Finger sensation intact. NEURO: Alert and oriented to person, place, and time. CN II-XII intact. DTR 2+/4. Normal strength. Normal gait. No tremor. ASSESSMENT/PLAN: 1. Acute wrist pain, left - ICD9: 719.43, ICD10: M25.532 (primary diagnosis) 2. Elbow pain, left - ICD9: 719.42, ICD10: M25.522 - XR WRIST INJURY 4V PA/LAT/OBL/SCAPH LEFT - no fracture - XR ELBOW SPECIAL VIEWS AP/LAT/OTHER LEFT - incidental ovoid lucency proximal radial shaft - probable biceps tendon insertion pseudolesion. Wrist sprain. Supportive care with as needed OTC analgesia, rest, and ice. Placed in cockup splint with thumb spica for comfort. Work note. 3. Headache, unspecified headache type - ICD9: 784.0, ICD10: R51.9 Migraine headache. Discussed supportive care measures with OTC analgesia such as Excedrin. Declines antiemetic Rx. She has been to the ER for bad and persistent migraine in the past but does not feel this one is bad enough for the ER presently. Anselmo Ferraro MD documented in this encounter [facility] 10-20-2021 Miscellaneous Notes Pt returned call & was notified of results & instructions. Pt states understanding. Cherise Hines LPN Left message for patient to return call. Kaitlin Almazan Please let patient know that her labs were all within normal range. Recommend f/u with PCP or hematology for further evaluation of anemia. Erin Black PA-C 10/19/2021 documented in this encounter [facility] 10-12-2021 History of Presen t illness Narrative 10/12/2021 Patient presents with: Abdominal Pain: LLQ pain, nausea, diarrhea x1 week SUBJECTIVE: This is a 21 year old that is here today for Complaint(s) of LLQ abdominal pain follow up x 3 days. + nausea associated. Having diarrhea, which seem to be improving. Pain is persisting. Patient did have urinary symptoms-urine culture from the did grow out >100,000 ecoli. Bactrim prescribed, but she has not started. She plans to picker the Rx today after visit. Denies fever/chills, vomiting, blood in stools, recent travel, dizziness. PAST MEDICAL HISTORY Diagnosis Date Anemia Arthritis hips Congenital pes planus 03/30/2012 mastitis with Mental disorder Migraine without status migrainosus, not intractable 11/03/2015 Tendonitis 03/30/2012 ALLERGIES Penicillins MEDICATIONS Current Outpatient Medications Medication Sig sulfamethoxazole-trimethoprim (BACTRIM DS) 800-160 mg per tablet Take 1 tablet by mouth twice daily for 7 days. Mnhecxxm-Zt-Qje-Fe-FA ( VITAMIN) tab Take 1 tablet by mouth. (Patient not taking: Reported on 10/09/2021 ) No current facility-administered medications for this visit. SOCIAL HISTORY Social History Tobacco Use Smoking status: Former Smoker Years: 1.00 Quit date: 02/27/2019 Years since quittin.6 Smokeless tobacco: Never Used Tobacco comment: vaping Vaping Use Vaping Use: Never used Substance Use Topics Alcohol use: Not Currently Drug use: Never REVIEW OF SYSTEMS See HPI OBJECTIVE: BP 90/62 Pulse 92 Temp 36.2 C (97.2 F) Resp 18 Wt 42.6 kg (94 lb) LMP 09/14/2021 SpO2 98% BMI 16.14 kg/m APPEARANCE Well appearing, alert, in no acute distress, well-hydrated, well nourished. ABDOMEN soft, + suprapubic TTP, mild LLQ. No rebound, rigidity or guarding. Negative McBurney's, Rovsing's, Vasquze's. Pain greater suprapubic region. non-distended, without organomegaly or palpable masses, BACK: Normal exam, no CVA TTP ASSESSMENT/PLAN: 1. Acute cystitis without hematuria - ICD9: 595.0, ICD10: N30.00 (primary diagnosis) Advise picking up and starting Bactrim today Good fluid intake Reviewed red flags and when to seek care sooner. 2. Lower abdominal pain - ICD9: 789.09, ICD10: R10.30 - Diarrhea resolving. Suspect pain related to current UTI Start bactrim F/u in 24-48 hours if not improving, sooner if worsening Reviewed red flags and when to seek care sooner. The patient indicates understanding of these issues and agrees with the plan. Seek care in ER if fever >100, vomiting, worsening pain. 3. Nausea - ICD9: 787.02, ICD10: R11.0 As above - ONDANSETRON 4 MG DISINTEGRATING TABLET 4. Anemia, unspecified type - ICD9: 285.9, ICD10: D64.9 Patient's recent labs show anemia. Per patient she is always anemic. Recommend basic screening labs to further evaluate. Advise f/u with primary care to discuss further. If either low-can prescribe/recommend iron vs B12. Consider hematology referral. - IRON + TIBC - FERRITIN BLD - VITAMIN B12 BLOOD Recommend well balanced diet. Erin Black PA-C documented in this encounter [facility] 10-10-2021 Miscellaneous Notes Phone call placed patient advised (see prior provider encounter) Patient verbalized understanding, agreed with plan of care. Kelli Sepulveda LPN Patient has greater than 100 thousand e.coli on prelim. Please inform patient that we need to start her on ATB Bactrim called into pharmacy on file. Phone call placed patient advised (see prior provider encounter) Patient verbalized understanding, agreed with plan of care. Hybrid appointment scheduled 10/12/2021 at 2:00. Kelli Sepulveda LPN CBC at baseline. CMP with mild hypokalemia of 3.4. Instruct patient to eat high potassium foods. Lipase normal Please inform patient of results. She should start BRAT diet. Please follow up on Hybrid schedule Tuesday for recheck. (nursing staff can place her there or have PSS). documented in this encounter [facility] 10-09-2021 Instructions Judith Saenz APRN.CNP - 10/09/2021 9:27 AM EDT ABDOMINAL PAIN GENERAL INFORMATION: Many medical conditions can cause abdominal pain. Often, the cause cannot be found. INSTRUCTIONS: 1. Your doctor did not find any evidence of a serious disease that could be causing your pain. However, you should return immediately if you develop any of the symptoms listed below. These could be signs of serious diseases that need immediate medical care. 2. You should follow up with your regular physician or with the doctor recommended to you by the emergency department. 3. Rest in bed until you feel better. 4. Take your temperature every 4 hours. 5. Do not take any medications not prescribed by the physician including laxatives and pain killers. 6. As long as you still have pain, do not eat solid foods or drink large amounts of fluids. You may take small sips of clear liquids or suck on ice. CONTACT YOUR DOCTOR OR RETURN TO THE EMERGENCY DEPARTMENT IF: 1. Your pain gets worse or concentrates in only one area. 2. You vomit blood or find blood in your stool or urine. 3. You are dizzy or faint. 4. Your abdomen becomes swollen or your bowel movements stop. 5. You have a temperature over 102 F (39 C). 6. You have trouble passing urine. 7. You feel short of breath. documented in this encounter [facility] 10-09-2021 History of Presen t illness Narrative This note was created using [employer]. Subjective Luther Willis is a 21 year old female. 21 year old female with PMH anemia presents for abdominal pain. Acute onset of symptoms was 2 to 3 days ago. Left side, upper and lower. Cramping. Constant +burning +frequency +urgency with urination +nausea +diarrhea +chills Denies emesis. Similar feelings with prior history of kidney infection. LMP-September 14 Denies CP. Denies SOB. Denies factors that seem to alleviate. Denies factors that seem to exacerbate. The history is provided by the patient and the spouse. No chinese language professor was used. Abdominal Pain This is a new problem. The current episode started 2 days ago. The problem occurs constantly. The problem has not changed since onset.The pain is associated with an unknown factor. The pain is located in the LUQ and LLQ. The quality of the pain is cramping. The pain is at a severity of 5/10. The pain is moderate. Associated symptoms include diarrhea, nausea, dysuria and frequency. Pertinent negatives include anorexia, fever, belching, flatus, hematochezia, melena, vomiting, constipation, hematuria, headaches, arthralgias and myalgias. Nothing aggravates the symptoms. Nothing relieves the symptoms. Past workup does not include GI consult, CT scan, ultrasound, surgery or barium enema. Her past medical history does not include PUD, gallstones, GERD, ulcerative colitis, Crohn's disease or irritable bowel syndrome. PAST MEDICAL HISTORY Diagnosis Date Anemia Arthritis hips Congenital pes planus 03/30/2012 mastitis with Mental disorder Migraine without status migrainosus, not intractable 11/03/2015 Tendonitis 03/30/2012 PAST SURGICAL HISTORY Procedure Laterality Date NONE ALLERGIES Penicillins MEDICATIONS Fmnpgpns-Pm-Zel-Fe-FA ( VITAMIN) tab Take 1 tablet by mouth. FAMILY HISTORY Problem Relation Age of Onset No Known Problems Mother Asthma Father No Known Problems Sister No Known Problems Sister No Known Problems Sister No Known Problems Sister No Known Problems Brother No Known Problems Brother Breast Cancer Maternal Grandmother Heart Failure Maternal Grandmother Heart Maternal Grandfather Hypertension Paternal Grandmother COPD Paternal Grandmother Diabetes Paternal Grandfather Cancer Paternal Grandfather Hypertension Paternal Grandfather Heart Paternal Uncle 30 pacemaker No Known Problems Son Social History Tobacco Use Smoking status: Former Smoker Years: 1.00 Quit date: 02/27/2019 Years since quittin.6 Smokeless tobacco: Never Used Tobacco comment: vaping Vaping Use Vaping Use: Never used Substance Use Topics Alcohol use: Not Currently Drug use: Never Review of Systems Constitutional: Negative for activity change, appetite change, chills, diaphoresis, fatigue and fever. HENT: Negative for congestion and dental problem. Respiratory: Negative for apnea, cough, choking, chest tightness and shortness of breath. Cardiovascular: Negative for chest pain, palpitations and leg swelling. Gastrointestinal: Positive for abdominal pain, diarrhea and nausea. Negative for anorexia, constipation, flatus, hematochezia, melena and vomiting. Genitourinary: Positive for dysuria, flank pain, frequency and urgency. Negative for hematuria, vaginal bleeding and vaginal discharge. Musculoskeletal: Negative for arthralgias, back pain and myalgias. Skin: Negative for color change, pallor and rash. Allergic/Immunologic: Negative for environmental allergies, food allergies and immunocompromised state. Neurological: Negative for dizziness, facial asymmetry, light-headedness and headaches. Hematological: Negative for adenopathy. Does not bruise/bleed easily. Psychiatric/Behavioral: Negative for agitation and behavioral problems. Objective BP 90/62 Pulse 89 Temp 36.3 C (97.3 F) Resp 16 Wt 42.7 kg (94 lb 3.2 oz) LMP 09/14/2021 SpO2 99% Yes BMI 16.17 kg/m Physical Exam Vitals and nursing note reviewed. Constitutional: General: She is not in acute distress. Appearance: Normal appearance. She is normal weight. She is not ill-appearing, toxic-appearing or diaphoretic. Comments: Non toxic Laughing and joking in room. HENT: Head: Normocephalic and atraumatic. Right Ear: Ear canal and external ear normal. Left Ear: Ear canal and external ear normal. Nose: Nose normal. No congestion or rhinorrhea. Mouth/Throat: Mouth: Mucous membranes are moist. Pharynx: No oropharyngeal exudate or posterior oropharyngeal erythema. Eyes: General: Right eye: No discharge. Left eye: No discharge. Extraocular Movements: Extraocular movements intact. Conjunctiva/sclera: Conjunctivae normal. Pupils: Pupils are equal, round, and reactive to light. Cardiovascular: Rate and Rhythm: Normal rate and regular rhythm. Pulses: Normal pulses. Heart sounds: Normal heart sounds. No murmur heard. No friction rub. Pulmonary: Effort: Pulmonary effort is normal. No respiratory distress. Breath sounds: Normal breath sounds. No stridor. No wheezing, rhonchi or rales. Chest: Chest wall: No tenderness. Abdominal: General: Abdomen is flat. There is no distension. Palpations: Abdomen is soft. There is no mass. Tenderness: There is abdominal tenderness (TTP LUQ and LLQ). There is left CVA tenderness. There is no right CVA tenderness, guarding or rebound. Hernia: No hernia is present. Musculoskeletal: General: No swelling, tenderness, deformity or signs of injury. Normal range of motion. Cervical back: Normal range of motion and neck supple. No rigidity. Right lower leg: No edema. Left lower leg: No edema. Lymphadenopathy: Cervical: No cervical adenopathy. Skin: General: Skin is warm and dry. Coloration: Skin is not jaundiced or pale. Findings: No bruising, erythema, lesion or rash. Neurological: General: No focal deficit present. Mental Status: She is alert and oriented to person, place, and time. Cranial Nerves: No cranial nerve deficit. Sensory: No sensory deficit. Motor: No weakness. Coordination: Coordination normal. Gait: Gait normal. Psychiatric: Mood and Affect: Mood normal. Behavior: Behavior normal. Thought Content: Thought content normal. Judgment: Judgment normal. Assessment and Plan ASSESSMENT/PLAN: 1. Dysuria - ICD9: 788.1, ICD10: R30.0 (primary diagnosis) acute - UA positive for proteinuria - Send urine for culture - Patient education for prevention given - UA DIP, URINE (POC) - URINE CULTURE - CBC + DIFF - COMP METABOLIC PANEL - LIPASE BLD - HCG QUAL UR B/O 2. Left upper quadrant abdominal pain - ICD9: 789.02, ICD10: R10.12 Non toxic Hemodynamically stable. Etiology unclear Differential Diagnosis includes GERD, IBS, Gall bladder colic/cholelithiasis, Kidney stones/colic, Appendicitis and Cystitis - Labs of CBC with Diff, CMP, Lipase, Urine analysis and urine HCG Urinalysis in office with + protein, otherwise normal Urine HCG negative - [place] low residue diet - Follow up in 2 days or sooner if worsening of symptoms - CBC + DIFF - COMP METABOLIC PANEL - LIPASE BLD The above labs were obtained STAT, will call with results. If lab work abnormal will treat as indicated. If normal to follow up with PCP - HCG QUAL UR B/O-negative Judith Saenz APRN.LAURY documented in this encounter [facility] 07-03-2020 History of Past i llness Narrative Problem Noted Date Resolved Date Elevated glucose level 07/03/2020 Overview: 07/28/20- 3 hour normal 07/03/20- Elevated 1 hour. 3 hour GTT ordered. Leann Gill APRN.CNM Short interval between pregn ancies affecting , antepartum 01/31/2020 03/04/2022 Overview: 01/31/2020 Patient delivered her last child July 14, 2019.TKRN History of anemia 01/31/2020 03/04/2022 Overview: 01/31/2020Patient has a history of anemia with her last . She was treated with IV iron infusions. TKRN Family history of defects 01/31/2020 03/04/2022 Overview: 01/31/2020 Patient's father born with hole in heart. No corrective surgery was done.TKRN Iron deficiency anemia secon rich to inadequate dietary iron intake 06/13/2019 03/28/2020 Anemia during in second trimester 10/201803/28/2020 Overview: 05/01/19-Hgb 10.8, to start iron supplementation. Repeat CBC in 4 weeks. Judith Carlson APRN.CNM Abnormal glucose in , antepartum 201809/18/2019 Overview: 05/01/19-1hr GCT elevated, 3hr GTT ordered. Judith Carlson APRN.CNM Underweight 04/30/2019 07/30/2019 Late care in second trimester 07/30/2019 Overview: 03/14/19-PAUL 07/30/19 by US. Unknown till 19 weeks. Judith Carlson APRN.CNM 03/06/2019Patient was seen in E.R. for RLQ and back pain 03/05/2019. Found out she was in E.R.-was not suspicious of because she had not had a menses in a year. Was treated for UTI. Rocephin given in E.R. States she is not in a relationship with the FOB at this time. Does not know what his involvement will be. Plans on keeping baby. TKRN UTI (urinary tract infection) in , ante 03/06/2019 07/30/2019 Overview: 03/06/2019Treated for UTI at [facility] 03/05/2019 TKRN Quit smoking 03/06/2019 07/30/2019 Overview: 03/06/2019Pt recently quit smoking 1 week ago. Discussed risks of smoking during and advised pt to continue not smoking.TKRN History of depression 03/06/2019 03/04/2022 Overview: 01/31/2020Pt has a history of depression diagnosed in 2015. She has been off medication since 2016. She believes she is doing well off medication. Discussed increased risks of depression during and and importance of reporting the development or worsening of symptoms should they occur.Pt denies ever having any suicidal thoughts or tendencies or thoughts of hurting others. TKRN Pain in joint, lower leg 03/04/2014 020 Tendonitis 03/30/2012 08/28/2019 Congenital pes planus 03/30/2012 08/28/2019 documented as of this encounter (statuses as of 03/04/2022) [facility] History of Past illness Narrative* Problem Noted Date Resolved Date Elevated glucose level 07/03/2020 Overview: 07/28/20- 3 hour normal 07/03/20- Elevated 1 hour. 3 hour GTT ordered. Leann Gill APRN.CNM Short interval between pregn ancies affecting , antepartum 01/31/2020 03/04/2022 Overview: 01/31/2020 Patient delivered her last child July 14, 2019.TKRN History of anemia 01/31/2020 03/04/2022 Overview: 01/31/2020Patient has a history of anemia with her last . She was treated with IV iron infusions. TKRN Family history of defects 01/31/2020 03/04/2022 Overview: 01/31/2020 Patient's father born with hole in heart. No corrective surgery was done.TKRN Iron deficiency anemia secon rich to inadequate dietary iron intake 06/13/2019 03/28/2020 Anemia during in second trimester 110 10/201803/28/2020 Overview: 05/01/19-Hgb 10.8, to start iron supplementation. Repeat CBC in 4 weeks. Judith Carlson APRN.CNM Abnormal glucose in , antepartum 201809/18/2019 Overview: 05/01/19-1hr GCT elevated, 3hr GTT ordered. Judith Carlson APRN.CNM Underweight 04/30/2019 07/30/2019 Late care in second trimester 9 07/30/2019 Overview: 03/14/19-PAUL 07/30/19 by US. Unknown till 19 weeks. Judith Carlson APRN.CNM 03/06/2019Patient was seen in E.R. for RLQ and back pain 03/05/2019. Found out she was in E.R.-was not suspicious of because she had not had a menses in a year. Was treated for UTI. Rocephin given in E.R. States she is not in a relationship with the FOB at this time. Does not know what his involvement will be. Plans on keeping baby. TKRN UTI (urinary tract infection) in , ante 03/06/2019 07/30/2019 Overview: 03/06/2019Treated for UTI at [facility] 03/05/2019 TKRN Quit smoking 03/06/2019 07/30/2019 Overview: 03/06/2019Pt recently quit smoking 1 week ago. Discussed risks of smoking during and advised pt to continue not smoking.TKRN History of depression 03/06/2019 03/04/2022 Overview: 01/31/2020Pt has a history of depression diagnosed in 2014. She has been off medication since 2016. She believes she is doing well off medication. Discussed increased risks of depression during and and importance of reporting the development or worsening of symptoms should they occur.Pt denies ever having any suicidal thoughts or tendencies or thoughts of hurting others. TKRN Pain in joint, lower leg 03/04/2014 020 Tendonitis 03/30/2012 08/28/2019 Congenital pes planus 03/30/2012 08/28/2019 documented as of this encounter (statuses as of 03/12/2022) [facility] History of Past illness Narrative* Problem Noted Date Resolved Date Elevated glucose level 07/03/2020 Overview: 07/28/20- 3 hour normal 07/03/20- Elevated 1 hour. 3 hour GTT ordered. Leann Gill APRN.CNM Short interval between pregn ancies affecting , antepartum 01/31/2020 03/04/2022 Overview: 01/31/2020 Patient delivered her last child July 14, 2019.TKRN History of anemia 01/31/2020 03/04/2022 Overview: 01/31/2020Patient has a history of anemia with her last . She was treated with IV iron infusions. TKRN Family history of defects 01/31/2020 03/04/2022 Overview: 01/31/2020 Patient's father born with hole in heart. No corrective surgery was done.TKRN Iron deficiency anemia secon rich to inadequate dietary iron intake 06/13/2019 03/28/2020 Anemia during in second trimester 10/201803/28/2020 Overview: 05/01/19-Hgb 10.8, to start iron supplementation. Repeat CBC in 4 weeks. Judith Carlson APRN.CNM Abnormal glucose in , antepartum 201809/18/2019 Overview: 05/01/19-1hr GCT elevated, 3hr GTT ordered. Judith Carlson APRN.CNM Underweight 04/30/2019 07/30/2019 Late care in second trimester 9 07/30/2019 Overview: 03/14/19-PAUL 07/30/19 by US. Unknown till 19 weeks. Judith Carlson APRN.DASHA 03/06/2019Patient was seen in E.R. for RLQ and back pain 03/05/2019. Found out she was in E.R.-was not suspicious of because she had not had a menses in a year. Was treated for UTI. Rocephin given in E.R. States she is not in a relationship with the FOB at this time. Does not know what his involvement will be. Plans on keeping baby. TKRN UTI (urinary tract infection) in , ante 03/06/2019 07/30/2019 Overview: 03/06/2019Treated for UTI at [facility] 03/05/2019 TKRN Quit smoking 03/06/2019 07/30/2019 Overview: 03/06/2019Pt recently quit smoking 1 week ago. Discussed risks of smoking during and advised pt to continue not smoking.TKRN History of depression 03/06/2019 03/04/2022 Overview: 01/31/2020Pt has a history of depression diagnosed in 2014. She has been off medication since 2016. She believes she is doing well off medication. Discussed increased risks of depression during and and importance of reporting the development or worsening of symptoms should they occur.Pt denies ever having any suicidal thoughts or tendencies or thoughts of hurting others. TKRN Pain in joint, lower leg 03/04/2014 020 Tendonitis 03/30/2012 08/28/2019 Congenital pes planus 03/30/2012 08/28/2019 documented as of this encounter (statuses as of 09/02/2022) [facility] History of Past illness Narrative* Problem Noted Date Resolved Date Elevated glucose level 07/03/2020 Overview: 07/28/20- 3 hour normal 07/03/20- Elevated 1 hour. 3 hour GTT ordered. Leann Gill APRN.CNM Short interval between pregn ancies affecting , antepartum 01/31/2020 03/04/2022 Overview: 01/31/2020 Patient delivered her last child July 14, 2019.TKRN Iron deficiency anemia sahrath villanueva to inadequate dietary iron intake 06/13/2019 03/28/2020 Anemia during in second trimester 10/201803/28/2020 Overview: 05/01/19-Hgb 10.8, to start iron supplementation. Repeat CBC in 4 weeks. Judith Carlson APRN.CNM Abnormal glucose in , antepartum 201809/18/2019 Overview: 05/01/19-1hr GCT elevated, 3hr GTT ordered. Judith Carlson APRN.CNM Underweight 04/30/2019 07/30/2019 Late care in second trimester 07/30/2019 Overview: 03/14/19-PAUL 07/30/19 by US. Unknown till 19 weeks. Judith Carlson APRN.CNM 03/06/2019Patient was seen in E.R. for RLQ and back pain 03/05/2019. Found out she was in E.R.-was not suspicious of because she had not had a menses in a year. Was treated for UTI. Rocephin given in E.R. States she is not in a relationship with the FOB at this time. Does not know what his involvement will be. Plans on keeping baby. TKRN UTI (urinary tract infection) in , ante 03/06/2019 07/30/2019 Overview: 03/06/2019Treated for UTI at [facility] 03/05/2019 TKRN Quit smoking 03/06/2019 07/30/2019 Overview: 03/06/2019Pt recently quit smoking 1 week ago. Discussed risks of smoking during and advised pt to continue not smoking.TKRN Pain in joint, lower leg 03/04/2014 020 Tendonitis 03/30/2012 08/28/2019 Congenital pes planus 03/30/2012 08/28/2019 documented as of this encounter (statuses as of 09/09/2022) [facility] History of Past illness Narrative* Problem Noted Date Resolved Date Elevated glucose level 07/03/2020 Overview: 07/28/20- 3 hour normal 07/03/20- Elevated 1 hour. 3 hour GTT ordered. Leann Gill APRN.CNM Short interval between pregn ancies affecting , antepartum 01/31/2020 03/04/2022 Overview: 01/31/2020 Patient delivered her last child July 14, 2019.TKRN Iron deficiency anemia secvan irwiny to inadequate dietary iron intake 06/13/2019 03/28/2020 Anemia during in second trimester 10/201803/28/2020 Overview: 05/01/19-Hgb 10.8, to start iron supplementation. Repeat CBC in 4 weeks. Judith Carlson APRN.CNM Abnormal glucose in , antepartum 201809/18/2019 Overview: 05/01/19-1hr GCT elevated, 3hr GTT ordered. Judith Carlson APRN.CNM Underweight 04/30/2019 07/30/2019 Late care in second trimester 07/30/2019 Overview: 03/14/19-PAUL 07/30/19 by US. Unknown till 19 weeks. Judith Carlson APRN.CNM 03/06/2019Patient was seen in E.R. for RLQ and back pain 03/05/2019. Found out she was in E.R.-was not suspicious of because she had not had a menses in a year. Was treated for UTI. Rocephin given in E.R. States she is not in a relationship with the FOB at this time. Does not know what his involvement will be. Plans on keeping baby. TKRN UTI (urinary tract infection) in , ante 03/06/2019 07/30/2019 Overview: 03/06/2019Treated for UTI at [facility] 03/05/2019 TKRN Quit smoking 03/06/2019 07/30/2019 Overview: 03/06/2019Pt recently quit smoking 1 week ago. Discussed risks of smoking during and advised pt to continue not smoking.TKRN Pain in joint, lower leg 03/04/2014 020 Tendonitis 03/30/2012 08/28/2019 Congenital pes planus 03/30/2012 08/28/2019 documented as of this encounter (statuses as of 09/10/2022) [facility]01-07-2021 History of Past illness Narrative* Problem Noted Date Resolved Date Elevated glucose level 07/03/2020 Overview: 07/28/20- 3 hour normal 07/03/20- Elevated 1 hour. 3 hour GTT ordered. Leann Gill APRN.CNM Short interval between pregn ancies affecting , antepartum 01/31/2020 03/04/2022 Overview: 01/31/2020 Patient delivered her last child July 14, 2019.TKRN Iron deficiency anemia secon rich to inadequate dietary iron intake 06/13/2019 03/28/2020 Anemia during in second trimester 10/201803/28/2020 Overview: 05/01/19-Hgb 10.8, to start iron supplementation. Repeat CBC in 4 weeks. Judith Carlson APRN.CNM Abnormal glucose in , antepartum 201809/18/2019 Overview: 05/01/19-1hr GCT elevated, 3hr GTT ordered. Judith Carlson APRN.CNM Underweight 04/30/2019 07/30/2019 Late care in second trimester 07/30/2019 Overview: 03/14/19-PAUL 07/30/19 by US. Unknown till 19 weeks. Judith Carlson APRN.CNM 03/06/2019Patient was seen in E.R. for RLQ and back pain 03/05/2019. Found out she was in E.R.-was not suspicious of because she had not had a menses in a year. Was treated for UTI. Rocephin given in E.R. States she is not in a relationship with the FOB at this time. Does not know what his involvement will be. Plans on keeping baby. TKRN UTI (urinary tract infection) in , ante 03/06/2019 07/30/2019 Overview: 03/06/2019Treated for UTI at [facility] 03/05/2019 TKRN Quit smoking 03/06/2019 07/30/2019 Overview: 03/06/2019Pt recently quit smoking 1 week ago. Discussed risks of smoking during and advised pt to continue not smoking.TKRN Pain in joint, lower leg 03/04/2014 020 Tendonitis 03/30/2012 08/28/2019 Congenital pes planus 03/30/2012 08/28/2019 documented as of this encounter (statuses as of 09/14/2022) [facility]01-07-[facility]21 History of Past illness Narrative* Problem Noted Date Resolved Date Elevated glucose level 07/03/2020 Overview: 07/28/20- 3 hour normal 07/03/20- Elevated 1 hour. 3 hour GTT ordered. Leann Gill APRN.CNM Short interval between pregn ancies affecting , antepartum 01/31/2020 03/04/2022 Overview: 01/31/2020 Patient delivered her last child July 14, 2019.TKRN Iron deficiency anemia secon rich to inadequate dietary iron intake 06/13/2019 03/28/2020 Anemia during in second trimester 10/201803/28/2020 Overview: 05/01/19-Hgb 10.8, to start iron supplementation. Repeat CBC in 4 weeks. Judith Carlson APRN.CNM Abnormal glucose in , antepartum 201809/18/2019 Overview: 05/01/19-1hr GCT elevated, 3hr GTT ordered. Judith Carlson APRN.CNM Underweight 04/30/2019 07/30/2019 Late care in second trimester 9 07/30/2019 Overview: 03/14/19-PAUL 07/30/19 by US. Unknown till 19 weeks. Judith Carlson APRN.CNM 03/06/2019Patient was seen in E.R. for RLQ and back pain 03/05/2019. Found out she was in E.R.-was not suspicious of because she had not had a menses in a year. Was treated for UTI. Rocephin given in E.R. States she is not in a relationship with the FOB at this time. Does not know what his involvement will be. Plans on keeping baby. TKRN UTI (urinary tract infection) in , ante 03/06/2019 07/30/2019 Overview: 03/06/2019Treated for UTI at [facility] 03/05/2019 TKRN Quit smoking 03/06/2019 07/30/2019 Overview: 03/06/2019Pt recently quit smoking 1 week ago. Discussed risks of smoking during and advised pt to continue not smoking.TKRN Pain in joint, lower leg 03/04/2014 020 Tendonitis 03/30/2012 08/28/2019 Congenital pes planus 03/30/2012 08/28/2019 documented as of this encounter (statuses as of 09/24/2022) [facility]01-07-2021 History of Past illness Narrative* Problem Noted Date Resolved Date Elevated glucose level 07/03/2020 Overview: 07/28/20- 3 hour normal 07/03/20- Elevated 1 hour. 3 hour GTT ordered. Leann Gill APRN.CNM Short interval between pregn ancies affecting , antepartum 01/31/2020 03/04/2022 Overview: 01/31/2020 Patient delivered her last child July 14, 2019.TKRN Iron deficiency anemia sharath villanueva to inadequate dietary iron intake 06/13/2019 03/28/2020 Anemia during in second trimester 10/201803/28/2020 Overview: 05/01/19-Hgb 10.8, to start iron supplementation. Repeat CBC in 4 weeks. Judith Carlson APRN.CNM Abnormal glucose in , antepartum 201809/18/2019 Overview: 05/01/19-1hr GCT elevated, 3hr GTT ordered. Judith Carlson APRN.CNM Underweight 04/30/2019 07/30/2019 Late care in second trimester 07/30/2019 Overview: 03/14/19-PAUL 07/30/19 by US. Unknown till 19 weeks. Judith Carlson APRN.CNM 03/06/2019Patient was seen in E.R. for RLQ and back pain 03/05/2019. Found out she was in E.R.-was not suspicious of because she had not had a menses in a year. Was treated for UTI. Rocephin given in E.R. States she is not in a relationship with the FOB at this time. Does not know what his involvement will be. Plans on keeping baby. TKRN UTI (urinary tract infection) in , ante 03/06/2019 07/30/2019 Overview: 03/06/2019Treated for UTI at [facility] 03/05/2019 TKRN Quit smoking 03/06/2019 07/30/2019 Overview: 03/06/2019Pt recently quit smoking 1 week ago. Discussed risks of smoking during and advised pt to continue not smoking.TKRN Pain in joint, lower leg 03/04/2014 020 Tendonitis 03/30/2012 08/28/2019 Congenital pes planus 03/30/2012 08/28/2019 documented as of this encounter (statuses as of 09/27/2022) [facility]01-07-[facility]21 History of Past illness Narrative* Problem Noted Date Resolved Date Elevated glucose level 07/03/2020 Overview: 07/28/20- 3 hour normal 07/03/20- Elevated 1 hour. 3 hour GTT ordered. Leann Gill APRN.CNM Short interval between pregn ancies affecting , antepartum 01/31/2020 03/04/2022 Overview: 01/31/2020 Patient delivered her last child July 14, 2019.TKRN Iron deficiency anemia secvan irwiny to inadequate dietary iron intake 06/13/2019 03/28/2020 Anemia during in second trimester 10/201803/28/2020 Overview: 05/01/19-Hgb 10.8, to start iron supplementation. Repeat CBC in 4 weeks. Judith Carlson APRN.CNM Abnormal glucose in , antepartum 201809/18/2019 Overview: 05/01/19-1hr GCT elevated, 3hr GTT ordered. Judith Carlson APRN.CNM Underweight 04/30/2019 07/30/2019 Late care in second trimester 07/30/2019 Overview: 03/14/19-PAUL 07/30/19 by US. Unknown till 19 weeks. Judith Carlson APRN.CNM 03/06/2019Patient was seen in E.R. for RLQ and back pain 03/05/2019. Found out she was in E.R.-was not suspicious of because she had not had a menses in a year. Was treated for UTI. Rocephin given in E.R. States she is not in a relationship with the FOB at this time. Does not know what his involvement will be. Plans on keeping baby. TKRN UTI (urinary tract infection) in , ante 03/06/2019 07/30/2019 Overview: 03/06/2019Treated for UTI at [facility] 03/05/2019 TKRN Quit smoking 03/06/2019 07/30/2019 Overview: 03/06/2019Pt recently quit smoking 1 week ago. Discussed risks of smoking during and advised pt to continue not smoking.TKRN Pain in joint, lower leg 03/04/2014 020 Tendonitis 03/30/2012 08/28/2019 Congenital pes planus 03/30/2012 08/28/2019 documented as of this encounter (statuses as of 09/28/2022) [facility]01-07-[facility]21 History of Past illness Narrative* Problem Noted Date Resolved Date Elevated glucose level 07/03/2020 Overview: 07/28/20- 3 hour normal 07/03/20- Elevated 1 hour. 3 hour GTT ordered. Leann Gill APRN.CNM Short interval between pregn ancies affecting , antepartum 01/31/2020 03/04/2022 Overview: 01/31/2020 Patient delivered her last child July 14, 2019.TKRN Iron deficiency anemia secon rich to inadequate dietary iron intake 06/13/2019 03/28/2020 Anemia during in second trimester 10/201803/28/2020 Overview: 05/01/19-Hgb 10.8, to start iron supplementation. Repeat CBC in 4 weeks. Judith Carlson APRN.CNM Abnormal glucose in , antepartum 201809/18/2019 Overview: 05/01/19-1hr GCT elevated, 3hr GTT ordered. Judith Carlson APRN.CNM Underweight 04/30/2019 07/30/2019 Late care in second trimester 07/30/2019 Overview: 03/14/19-PAUL 07/30/19 by US. Unknown till 19 weeks. Judith Carlson APRN.CNM 03/06/2019Patient was seen in E.R. for RLQ and back pain 03/05/2019. Found out she was in E.R.-was not suspicious of because she had not had a menses in a year. Was treated for UTI. Rocephin given in E.R. States she is not in a relationship with the FOB at this time. Does not know what his involvement will be. Plans on keeping baby. TKRN UTI (urinary tract infection) in , ante 03/06/2019 07/30/2019 Overview: 03/06/2019Treated for UTI at [facility] 03/05/2019 TKRN Quit smoking 03/06/2019 07/30/2019 Overview: 03/06/2019Pt recently quit smoking 1 week ago. Discussed risks of smoking during and advised pt to continue not smoking.TKRN Pain in joint, lower leg 03/04/2014 020 Tendonitis 03/30/2012 08/28/2019 Congenital pes planus 03/30/2012 08/28/2019 documented as of this encounter (statuses as of 10/11/2022) [facility]12-18-2019 History of Past illness Narrative* Problem Noted Date Resolved Date Iron deficiency anemia sharath irwiny to inadequate dietary iron intake 06/13/2019 03/28/2020 Anemia during in second trimester 10/201803/28/2020 Overview: 05/01/19-Hgb 10.8, to start iron supplementation. Repeat CBC in 4 weeks. Judith Carlson APRN.CNM Abnormal glucose in , antepartum 201809/18/2019 Overview: 05/01/19-1hr GCT elevated, 3hr GTT ordered. Judith Carlson APRN.CNM Underweight 04/30/2019 07/30/2019 Late care in second trimester 07/30/2019 Overview: 03/14/19-PAUL 07/30/19 by US. Unknown till 19 weeks. Judith Carlson APRN.CNM 03/06/2019Patient was seen in E.R. for RLQ and back pain 03/05/2019. Found out she was in E.R.-was not suspicious of because she had not had a menses in a year. Was treated for UTI. Rocephin given in E.R. States she is not in a relationship with the FOB at this time. Does not know what his involvement will be. Plans on keeping baby. TKRN UTI (urinary tract infection) in , ante 03/06/2019 07/30/2019 Overview: 03/06/2019Treated for UTI at [facility] 03/05/2019 TKRN Quit smoking 03/06/2019 07/30/2019 Overview: 03/06/2019Pt recently quit smoking 1 week ago. Discussed risks of smoking during and advised pt to continue not smoking.TKRN Pain in joint, lower leg 03/04/2014 020 Tendonitis 03/30/2012 08/28/2019 Congenital pes planus 03/30/2012 08/28/2019 documented as of this encounter (statuses as of 10/09/2021) [facility]12[facility] History of Past illness Narrative* Problem Noted Date Resolved Date Iron deficiency anemia secon rich to inadequate dietary iron intake 06/13/2019 03/28/2020 Anemia during in second trimester 10/201803/28/2020 Overview: 05/01/19-Hgb 10.8, to start iron supplementation. Repeat CBC in 4 weeks. Judith Carlson APRN.CNM Abnormal glucose in , antepartum 201809/18/2019 Overview: 05/01/19-1hr GCT elevated, 3hr GTT ordered. Judith Carlson APRN.CNM Underweight 04/30/2019 07/30/2019 Late care in second trimester 9 07/30/2019 Overview: 03/14/19-PAUL 07/30/19 by US. Unknown till 19 weeks. Judith Carlson APRN.CNM 03/06/2019Patient was seen in E.R. for RLQ and back pain 03/05/2019. Found out she was in E.R.-was not suspicious of because she had not had a menses in a year. Was treated for UTI. Rocephin given in E.R. States she is not in a relationship with the FOB at this time. Does not know what his involvement will be. Plans on keeping baby. TKRN UTI (urinary tract infection) in , ante 03/06/2019 07/30/2019 Overview: 03/06/2019Treated for UTI at [facility] 03/05/2019 TKRN Quit smoking 03/06/2019 07/30/2019 Overview: 03/06/2019Pt recently quit smoking 1 week ago. Discussed risks of smoking during and advised pt to continue not smoking.TKRN Pain in joint, lower leg 03/04/2014 020 Tendonitis 03/30/2012 08/28/2019 Congenital pes planus 03/30/2012 08/28/2019 documented as of this encounter (statuses as of 10/10/2021) [facility] History of Past illness Narrative* Problem Noted Date Resolved Date Iron deficiency anemia secon rich to inadequate dietary iron intake 06/13/2019 03/28/2020 Anemia during in second trimester 10/201803/28/2020 Overview: 05/01/19-Hgb 10.8, to start iron supplementation. Repeat CBC in 4 weeks. Judith Carlson APRN.CNM Abnormal glucose in , antepartum 201809/18/2019 Overview: 05/01/19-1hr GCT elevated, 3hr GTT ordered. Judith Carlson APRN.CNM Underweight 04/30/2019 07/30/2019 Late care in second trimester 9 07/30/2019 Overview: 03/14/19-PAUL 07/30/19 by US. Unknown till 19 weeks. Judith Carlson APRN.CNM 03/06/2019Patient was seen in E.R. for RLQ and back pain 03/05/2019. Found out she was in E.R.-was not suspicious of because she had not had a menses in a year. Was treated for UTI. Rocephin given in E.R. States she is not in a relationship with the FOB at this time. Does not know what his involvement will be. Plans on keeping baby. TKRN UTI (urinary tract infection) in , ante 03/06/2019 07/30/2019 Overview: 03/06/2019Treated for UTI at [facility] 03/05/2019 TKRN Quit smoking 03/06/2019 07/30/2019 Overview: 03/06/2019Pt recently quit smoking 1 week ago. Discussed risks of smoking during and advised pt to continue not smoking.TKRN Pain in joint, lower leg 03/04/2014 020 Tendonitis 03/30/2012 08/28/2019 Congenital pes planus 03/30/2012 08/28/2019 documented as of this encounter (statuses as of 10/12/2021) [facility] History of Past illness Narrative* Problem Noted Date Resolved Date Iron deficiency anemia secon rich to inadequate dietary iron intake 06/13/2019 03/28/2020 Anemia during in second trimester 10/201803/28/2020 Overview: 05/01/19-Hgb 10.8, to start iron supplementation. Repeat CBC in 4 weeks. Judith Carlson APRN.CNM Abnormal glucose in , antepartum 201809/18/2019 Overview: 05/01/19-1hr GCT elevated, 3hr GTT ordered. Judith Carlson APRN.CNM Underweight 04/30/2019 07/30/2019 Late care in second trimester 9 07/30/2019 Overview: 03/14/19-PAUL 07/30/19 by US. Unknown till 19 weeks. Judith Carlson APRN.CNM 03/06/2019Patient was seen in E.R. for RLQ and back pain 03/05/2019. Found out she was in E.R.-was not suspicious of because she had not had a menses in a year. Was treated for UTI. Rocephin given in E.R. States she is not in a relationship with the FOB at this time. Does not know what his involvement will be. Plans on keeping baby. TKRN UTI (urinary tract infection) in , ante 03/06/2019 07/30/2019 Overview: 03/06/2019Treated for UTI at [facility] 03/05/2019 TKRN Quit smoking 03/06/2019 07/30/2019 Overview: 03/06/2019Pt recently quit smoking 1 week ago. Discussed risks of smoking during and advised pt to continue not smoking.TKRN Pain in joint, lower leg 03/04/2014 020 Tendonitis 03/30/2012 08/28/2019 Congenital pes planus 03/30/2012 08/28/2019 documented as of this encounter (statuses as of 10/20/2021) [facility] History of Past illness Narrative* Problem Noted Date Resolved Date Iron deficiency anemia secon rich to inadequate dietary iron intake 06/13/2019 03/28/2020 Anemia during in second trimester 10/201803/28/2020 Overview: 05/01/19-Hgb 10.8, to start iron supplementation. Repeat CBC in 4 weeks. Judith Carlson APRN.CNM Abnormal glucose in , antepartum 201809/18/2019 Overview: 05/01/19-1hr GCT elevated, 3hr GTT ordered. Judith Carlson APRN.CNM Underweight 04/30/2019 07/30/2019 Late care in second trimester 9 07/30/2019 Overview: 03/14/19-PAUL 07/30/19 by US. Unknown till 19 weeks. Judith Carlson APRN.CNM 03/06/2019Patient was seen in E.R. for RLQ and back pain 03/05/2019. Found out she was in E.R.-was not suspicious of because she had not had a menses in a year. Was treated for UTI. Rocephin given in E.R. States she is not in a relationship with the FOB at this time. Does not know what his involvement will be. Plans on keeping baby. TKRN UTI (urinary tract infection) in , ante 03/06/2019 07/30/2019 Overview: 03/06/2019Treated for UTI at [facility] 03/05/2019 TKRN Quit smoking 03/06/2019 07/30/2019 Overview: 03/06/2019Pt recently quit smoking 1 week ago. Discussed risks of smoking during and advised pt to continue not smoking.TKRN Pain in joint, lower leg 03/04/2014 020 Tendonitis 03/30/2012 08/28/2019 Congenital pes planus 03/30/2012 08/28/2019 documented as of this encounter (statuses as of 12/19/2021) [facility] History of Past illness Narrative* Problem Noted Date Resolved Date Iron deficiency anemia secon rich to inadequate dietary iron intake 06/13/2019 03/28/2020 Anemia during in second trimester 10/201803/28/2020 Overview: 05/01/19-Hgb 10.8, to start iron supplementation. Repeat CBC in 4 weeks. Judith Carlson APRN.CNM Abnormal glucose in , antepartum 201809/18/2019 Overview: 05/01/19-1hr GCT elevated, 3hr GTT ordered. Judith Carlson APRN.CNM Underweight 04/30/2019 07/30/2019 Late care in second trimester 9 07/30/2019 Overview: 03/14/19-PAUL 07/30/19 by US. Unknown till 19 weeks. Judith Carlson APRN.CNM 03/06/2019Patient was seen in E.R. for RLQ and back pain 03/05/2019. Found out she was in E.R.-was not suspicious of because she had not had a menses in a year. Was treated for UTI. Rocephin given in E.R. States she is not in a relationship with the FOB at this time. Does not know what his involvement will be. Plans on keeping baby. TKRN UTI (urinary tract infection) in , ante 03/06/2019 07/30/2019 Overview: 03/06/2019Treated for UTI at [facility] 03/05/2019 TKRN Quit smoking 03/06/2019 07/30/2019 Overview: 03/06/2019Pt recently quit smoking 1 week ago. Discussed risks of smoking during and advised pt to continue not smoking.TKRN Pain in joint, lower leg 03/04/2014 020 Tendonitis 03/30/2012 08/28/2019 Congenital pes planus 03/30/2012 08/28/2019 documented as of this encounter (statuses as of 02/01/2022) [facility] History of Past illness Narrative* Problem Noted Date Resolved Date Iron deficiency anemia secon rich to inadequate dietary iron intake 06/13/2019 03/28/2020 Anemia during in second trimester 10/201803/28/2020 Overview: 05/01/19-Hgb 10.8, to start iron supplementation. Repeat CBC in 4 weeks. Judith Carlson APRN.CNM Abnormal glucose in , antepartum 201809/18/2019 Overview: 05/01/19-1hr GCT elevated, 3hr GTT ordered. Judith Carlson APRN.CNM Underweight 04/30/2019 07/30/2019 Late care in second trimester 9 07/30/2019 Overview: 03/14/19-PAUL 07/30/19 by US. Unknown till 19 weeks. Judith Carlson APRN.CNM 03/06/2019Patient was seen in E.R. for RLQ and back pain 03/05/2019. Found out she was in E.R.-was not suspicious of because she had not had a menses in a year. Was treated for UTI. Rocephin given in E.R. States she is not in a relationship with the FOB at this time. Does not know what his involvement will be. Plans on keeping baby. TKRN UTI (urinary tract infection) in , ante 03/06/2019 07/30/2019 Overview: 03/06/2019Treated for UTI at [facility] 03/05/2019 TKRN Quit smoking 03/06/2019 07/30/2019 Overview: 03/06/2019Pt recently quit smoking 1 week ago. Discussed risks of smoking during and advised pt to continue not smoking.TKRN Pain in joint, lower leg 03/04/2014 020 Tendonitis 03/30/2012 08/28/2019 Congenital pes planus 03/30/2012 08/28/2019 documented as of this encounter (statuses as of 02/08/2022) [facility] History of Past illness Narrative* Problem Noted Date Resolved Date Iron deficiency anemia secon rich to inadequate dietary iron intake 06/13/2019 03/28/2020 Anemia during in second trimester 10/201803/28/2020 Overview: 05/01/19-Hgb 10.8, to start iron supplementation. Repeat CBC in 4 weeks. Judith Cralson APRN.CNM Abnormal glucose in , antepartum 201809/18/2019 Overview: 05/01/19-1hr GCT elevated, 3hr GTT ordered. Judith Carlson APRN.CNM Underweight 04/30/2019 07/30/2019 Late care in second trimester 9 07/30/2019 Overview: 03/14/19-PAUL 07/30/19 by US. Unknown till 19 weeks. Judith Carlson APRN.CNM 03/06/2019Patient was seen in E.R. for RLQ and back pain 03/05/2019. Found out she was in E.R.-was not suspicious of because she had not had a menses in a year. Was treated for UTI. Rocephin given in E.R. States she is not in a relationship with the FOB at this time. Does not know what his involvement will be. Plans on keeping baby. TKRN UTI (urinary tract infection) in , ante 03/06/2019 07/30/2019 Overview: 03/06/2019Treated for UTI at [facility] 03/05/2019 TKRN Quit smoking 03/06/2019 07/30/2019 Overview: 03/06/2019Pt recently quit smoking 1 week ago. Discussed risks of smoking during and advised pt to continue not smoking.TKRN Pain in joint, lower leg 03/04/2014 020 Tendonitis 03/30/2012 08/28/2019 Congenital pes planus 03/30/2012 08/28/2019 documented as of this encounter (statuses as of 02/15/2022) [facility] History of Past illness Narrative* Problem Noted Date Resolved Date Iron deficiency anemia secon rich to inadequate dietary iron intake 06/13/2019 03/28/2020 Anemia during in second trimester 10/201803/28/2020 Overview: 05/01/19-Hgb 10.8, to start iron supplementation. Repeat CBC in 4 weeks. Judith Carlson APRN.CNM Abnormal glucose in , antepartum 201809/18/2019 Overview: 05/01/19-1hr GCT elevated, 3hr GTT ordered. Judith Carlson APRN.CNM Underweight 04/30/2019 07/30/2019 Late care in second trimester 07/30/2019 Overview: 03/14/19-PAUL 07/30/19 by US. Unknown till 19 weeks. Judith Carlson APRN.CNM 03/06/2019Patient was seen in E.R. for RLQ and back pain 03/05/2019. Found out she was in E.R.-was not suspicious of because she had not had a menses in a year. Was treated for UTI. Rocephin given in E.R. States she is not in a relationship with the FOB at this time. Does not know what his involvement will be. Plans on keeping baby. TKRN UTI (urinary tract infection) in , ante 03/06/2019 07/30/2019 Overview: 03/06/2019Treated for UTI at [facility] 03/05/2019 TKRN Quit smoking 03/06/2019 07/30/2019 Overview: 03/06/2019Pt recently quit smoking 1 week ago. Discussed risks of smoking during and advised pt to continue not smoking.TKRN Pain in joint, lower leg 03/04/2014 020 Tendonitis 03/30/2012 08/28/2019 Congenital pes planus 03/30/2012 08/28/2019 documented as of this encounter (statuses as of 02/16/2022) [facility] History of Past illness Narrative* Problem Noted Date Resolved Date Iron deficiency anemia sharath rich to inadequate dietary iron intake 06/13/2019 03/28/2020 Anemia during in second trimester 10/201803/28/2020 Overview: 05/01/19-Hgb 10.8, to start iron supplementation. Repeat CBC in 4 weeks. Judith Carlson APRN.CNM Abnormal glucose in , antepartum 201809/18/2019 Overview: 05/01/19-1hr GCT elevated, 3hr GTT ordered. Judith Carlson APRN.CNM Underweight 04/30/2019 07/30/2019 Late care in second trimester 9 07/30/2019 Overview: 03/14/19-PAUL 07/30/19 by US. Unknown till 19 weeks. Judith Carlson APRN.CNM 03/06/2019Patient was seen in E.R. for RLQ and back pain 03/05/2019. Found out she was in E.R.-was not suspicious of because she had not had a menses in a year. Was treated for UTI. Rocephin given in E.R. States she is not in a relationship with the FOB at this time. Does not know what his involvement will be. Plans on keeping baby. TKRN UTI (urinary tract infection) in , ante 03/06/2019 07/30/2019 Overview: 03/06/2019Treated for UTI at [facility] 03/05/2019 TKRN Quit smoking 03/06/2019 07/30/2019 Overview: 03/06/2019Pt recently quit smoking 1 week ago. Discussed risks of smoking during and advised pt to continue not smoking.TKRN Pain in joint, lower leg 03/04/2014 020 Tendonitis 03/30/2012 08/28/2019 Congenital pes planus 03/30/2012 08/28/2019 documented as of this encounter (statuses as of 02/19/2022) [facility]12-18-2019 History of Past illness Narrative* Problem Noted Date Resolved Date Iron deficiency anemia rufinovan rich to inadequate dietary iron intake 06/13/2019 03/28/2020 Anemia during in second trimester 10/201803/28/2020 Overview: 05/01/19-Hgb 10.8, to start iron supplementation. Repeat CBC in 4 weeks. Judith Carlson APRN.CNM Abnormal glucose in , antepartum 201809/18/2019 Overview: 05/01/19-1hr GCT elevated, 3hr GTT ordered. Judith Carlson APRN.CNM Underweight 04/30/2019 07/30/2019 Late care in second trimester 9 07/30/2019 Overview: 03/14/19-PAUL 07/30/19 by US. Unknown till 19 weeks. Judith Carlson APRN.CNM 03/06/2019Patient was seen in E.R. for RLQ and back pain 03/05/2019. Found out she was in E.R.-was not suspicious of because she had not had a menses in a year. Was treated for UTI. Rocephin given in E.R. States she is not in a relationship with the FOB at this time. Does not know what his involvement will be. Plans on keeping baby. TKRN UTI (urinary tract infection) in , ante 03/06/2019 07/30/2019 Overview: 03/06/2019Treated for UTI at [facility] 03/05/2019 TKRN Quit smoking 03/06/2019 07/30/2019 Overview: 03/06/2019Pt recently quit smoking 1 week ago. Discussed risks of smoking during and advised pt to continue not smoking.TKRN Pain in joint, lower leg 03/04/2014 020 Tendonitis 03/30/2012 08/28/2019 Congenital pes planus 03/30/2012 08/28/2019 documented as of this encounter (statuses as of 02/22/2022) [facility] History of Past illness Narrative* Problem Noted Date Resolved Date Iron deficiency anemia sharath villanueva to inadequate dietary iron intake 06/13/2019 03/28/2020 Anemia during in second trimester 10/201803/28/2020 Overview: 05/01/19-Hgb 10.8, to start iron supplementation. Repeat CBC in 4 weeks. Judith Carlson APRN.CNM Abnormal glucose in , antepartum 201809/18/2019 Overview: 05/01/19-1hr GCT elevated, 3hr GTT ordered. Judith Carlson APRN.CNM Underweight 04/30/2019 07/30/2019 Late care in second trimester 9 07/30/2019 Overview: 03/14/19-PAUL 07/30/19 by US. Unknown till 19 weeks. Judith Carlson APRN.CNM 03/06/2019Patient was seen in E.R. for RLQ and back pain 03/05/2019. Found out she was in E.R.-was not suspicious of because she had not had a menses in a year. Was treated for UTI. Rocephin given in E.R. States she is not in a relationship with the FOB at this time. Does not know what his involvement will be. Plans on keeping baby. TKRN UTI (urinary tract infection) in , ante 03/06/2019 07/30/2019 Overview: 03/06/2019Treated for UTI at [facility] 03/05/2019 TKRN Quit smoking 03/06/2019 07/30/2019 Overview: 03/06/2019Pt recently quit smoking 1 week ago. Discussed risks of smoking during and advised pt to continue not smoking.TKRN Pain in joint, lower leg 03/04/2014 020 Tendonitis 03/30/2012 08/28/2019 Congenital pes planus 03/30/2012 08/28/2019 documented as of this encounter (statuses as of 02/24/2022) [facility] History of Past illness Narrative* Problem Noted Date Resolved Date Iron deficiency anemia secon rich to inadequate dietary iron intake 06/13/2019 03/28/2020 Anemia during in second trimester 10/201803/28/2020 Overview: 05/01/19-Hgb 10.8, to start iron supplementation. Repeat CBC in 4 weeks. Judith Carlson APRN.CNM Abnormal glucose in , antepartum 201809/18/2019 Overview: 05/01/19-1hr GCT elevated, 3hr GTT ordered. Judith Carlson APRN.CNM Underweight 04/30/2019 07/30/2019 Late care in second trimester 9 07/30/2019 Overview: 03/14/19-PAUL 07/30/19 by US. Unknown till 19 weeks. Judith Carlson APRN.CNM 03/06/2019Patient was seen in E.R. for RLQ and back pain 03/05/2019. Found out she was in E.R.-was not suspicious of because she had not had a menses in a year. Was treated for UTI. Rocephin given in E.R. States she is not in a relationship with the FOB at this time. Does not know what his involvement will be. Plans on keeping baby. TKRN UTI (urinary tract infection) in , ante 03/06/2019 07/30/2019 Overview: 03/06/2019Treated for UTI at [facility] 03/05/2019 TKRN Quit smoking 03/06/2019 07/30/2019 Overview: 03/06/2019Pt recently quit smoking 1 week ago. Discussed risks of smoking during and advised pt to continue not smoking.TKRN Pain in joint, lower leg 03/04/2014 020 Tendonitis 03/30/2012 08/28/2019 Congenital pes planus 03/30/2012 08/28/2019 documented as of this encounter (statuses as of 02/26/2022) [facility] History of Past illness Narrative* Problem Noted Date Resolved Date Iron deficiency anemia secon rich to inadequate dietary iron intake 06/13/2019 03/28/2020 Anemia during in second trimester 10/201803/28/2020 Overview: 05/01/19-Hgb 10.8, to start iron supplementation. Repeat CBC in 4 weeks. Judith Carlson APRN.CNM Abnormal glucose in , antepartum 201809/18/2019 Overview: 11/5/19-1hr GCT elevated, 3hr GTT ordered. Judith Carlson APRN.CNM Underweight 04/30/2019 07/30/2019 Late care in second trimester 07/30/2019 Overview: 03/14/19-PAUL 07/30/19 by US. Unknown till 19 weeks. Judith Carlson APRN.CNM 03/06/2019Patient was seen in E.R. for RLQ and back pain 03/05/2019. Found out she was in E.R.-was not suspicious of because she had not had a menses in a year. Was treated for UTI. Rocephin given in E.R. States she is not in a relationship with the FOB at this time. Does not know what his involvement will be. Plans on keeping baby. TKRN UTI (urinary tract infection) in , ante 03/06/2019 07/30/2019 Overview: 03/06/2019Treated for UTI at [facility] 03/05/2019 TKRN Quit smoking 03/06/2019 07/30/2019 Overview: 03/06/2019Pt recently quit smoking 1 week ago. Discussed risks of smoking during and advised pt to continue not smoking.TKRN Pain in joint, lower leg 03/04/2014 020 Tendonitis 03/30/2012 08/28/2019 Congenital pes planus 03/30/2012 08/28/2019 documented as of this encounter (statuses as of 03/02/2022) [facility]12-[facility] History of Past illness Narrative* Problem Noted Date Resolved Date Iron deficiency anemia secon rich to inadequate dietary iron intake 06/13/2019 03/28/2020 Anemia during in second trimester 10/201803/28/2020 Overview: 05/01/19-Hgb 10.8, to start iron supplementation. Repeat CBC in 4 weeks. Judith Carlson APRN.CNM Abnormal glucose in , antepartum 201809/18/2019 Overview: 05/01/19-1hr GCT elevated, 3hr GTT ordered. Judith Carlson APRN.DASHA Underweight 04/30/2019 07/30/2019 Late care in second trimester 07/30/2019 Overview: 03/14/19-PAUL 07/30/19 by US. Unknown till 19 weeks. Judith Carlson APRN.DASHA 03/06/2019Patient was seen in E.R. for RLQ and back pain 03/05/2019. Found out she was in E.R.-was not suspicious of because she had not had a menses in a year. Was treated for UTI. Rocephin given in E.R. States she is not in a relationship with the FOB at this time. Does not know what his involvement will be. Plans on keeping baby. TKRN UTI (urinary tract infection) in , ante 03/06/2019 07/30/2019 Overview: 03/06/2019Treated for UTI at [facility] 03/05/2019 TKRN Quit smoking 03/06/2019 07/30/2019 Overview: 03/06/2019Pt recently quit smoking 1 week ago. Discussed risks of smoking during and advised pt to continue not smoking.TKRN Pain in joint, lower leg 03/04/2014 020 Tendonitis 03/30/2012 08/28/2019 Congenital pes planus 03/30/2012 08/28/2019 documented as of this encounter (statuses as of 03/02/2022) [facility] Diagnosis Dysuria- Primary Left upper quadrant abdominal pain documented [facility] this encounter [facility] Diagnosis Acute cystitis without hematuria- Primary Acute cystitis Lower abdominal pain Abdominal pain, other specified site Nausea Nausea alone Anemia, unspecified type [facility] Diagnosis Acute wrist pain, left- Primary Elbow pain, left Pain in joint, upper arm Headache, unspecified headache type documented [facility] this encounter [facility] Diagnosis Secondary amenorrhea- Primary Absence of menstruation Viral illness Unspecified viral infection, in conditions classified elsewhere and of unspecified site [facility] Diagnosis Screen for STD (sexually transmitted disease)- Primary Screening examination for venereal disease Encounter for gynecological examination (general) (routine) without abnormal findings Screening for cervical cancer Screening for malignant neoplasm of the cervix Encounter for test, result positive examination or test, positive result documented in this encounter [facility] Diagnosis care in first trimester- Primary documented in this encounter [facility] Diagnosis Threatened miscarriage- Primary Threatened , unspecified as to episode of care documented in this encounter [facility] Diagnosis with uncertain dates in first trimester- Primary documented in this encounter [facility] Diagnosis Missed - Primary documented in this encounter [facility] Diagnosis Missed - Primary documented in this encounter [facility] Diagnosis Missed - Primary documented in this encounter [facility]* Diagnosis Missed - Primary 8 weeks gestation of state, incidental documented in this encounter [facility] Diagnosis History of miscarriage- Primary Personal history of other genital system and obstetric disorders Post-operative state Other postprocedural status [facility] Diagnosis Encounter for gynecological examination (general) (routine) without abnormal findings- Primary Missed menses Absence of menstruation [facility] Diagnosis Current with history of spontaneous during prior - Primary History of depression Personal history of other mental disorder History of anemia Personal history of diseases of blood and blood-forming organs Nausea and vomiting during [facility] Diagnosis Encounter for test, result positive- Primary examination or test, positive result Supervision of other normal , antepartum documented [facility] this encounter [facility] Diagnosis with uncertain dates in first trimester- Primary Early stage of state, incidental 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 Inappropriate change in quantitative human chorionic gonadotropin (hCG) in early [facility] Diagnosis 9 weeks gestation of - Primary state, incidental Spontaneous Unspecified spontaneous without mention of complication [facility] Diagnosis Encounter for test, result positive examination or test, positive result [facility] Elbow pain, left Pain in joint, upper arm Acute wrist pain, left documented in this encounter [facility] for referral (narrative)* Diagnostic Procedure Only (Urgent) - Closed Specialty Diagnoses / Procedures Referred By Contac t Referred To Contact XR IMAGING Diagnoses Acute wrist pain, left Procedures XR WRIST INJURY 4V PA/LAT/OBL/SCAPH LEFT RADEX WRIST COMPLETE MINIMUM 3 VIEWS Anselmo Ferraro MD [address] [place] [address] Xr Imaging Referral ID Status Reason Start Date Expiration Date V isits Requested Visits Authorized [id number] Closed Auto-Generate d Referral 12/19/2021 01/18/2023 1 1 * Diagnostic Procedure Only (Urgent) - Closed Specialty Diagnoses / Procedures Referred By Contac t Referred To Contact XR IMAGING Diagnoses Elbow pain, left Procedures XR ELBOW SPECIAL VIEWS AP/LAT/OTHER LEFT RADEX ELBOW COMPLETE MINIMUM 3 VIEWS Anselmo Ferraro MD [address] [place] [address] Xr Imaging Referral ID Status Reason Start Date Expiration Date V isits Requested Visits Authorized [id number] Closed Auto-Generate d Referral 12/19/2021 01/18/2023 1 1 [facility] for referral (narrative)* Diagnostic Procedure Only (Routine) - Authorized Specialty Diagnoses / Procedures Referred By Contac t Referred To Contact [facility] Diagnoses Encounter for test, result positive Procedures OBSTETRIC ULTRASOUND WHI US PREG UTERUS AFTER 1ST TRIMEST 1 GESTATION Leann Gill APRN.CNM [address] [place] [address] [facility] [address] [place] [address] Referral ID Status Reason Start Date Expiration Date Visits Requested Visits Authorized [id number] Authorized Auto-Generat ed Referral 02/08/2022 02/08/2023 1 1 [facility] for referral (narrative)* Diagnostic Procedure Only (Routine) - Authorized Specialty Diagnoses / Procedures Referred By Contac t Referred To Contact [facility] Diagnoses with uncertain dates in first trimester Procedures OBSTETRIC ULTRASOUND WHI US PREG UTERUS AFTER 1ST TRIMEST GESTATION Ilir Ramirez MD [address] [place] [address] [facility] [address] [place] [address] Referral ID Status Reason Start Date Expiration Date Visits Requested Visits Authorized [id number] Authorized Auto-Generat ed Referral 02/19/2022 02/19/2023 1 1 [facility] for referral (narrative)* Diagnostic Procedure Only (Urgent) - Closed Specialty Diagnoses / Procedures Referred By Contac t Referred To Contact XR IMAGING Diagnoses Acute wrist pain, left Procedures XR WRIST INJURY 4V PA/LAT/OBL/SCAPH LEFT RADEX WRIST COMPLETE MINIMUM 3 VIEWS Anselmo Ferraro MD [address] [place] [address] [place] [address] Referral ID Status Reason Start Date Expiration Date V isits Requested Visits Authorized [id number] Closed Auto-Generate d Referral 12/19/2021 01/18/2023 1 1 * Diagnostic Procedure Only (Urgent) - Closed Specialty Diagnoses / Procedures Referred By Contac t Referred To Contact XR IMAGING Diagnoses Elbow pain, left Procedures XR ELBOW SPECIAL VIEWS AP/LAT/OTHER LEFT RADEX ELBOW COMPLETE MINIMUM 3 VIEWS Anselmo Ferraro MD [address] [place] [address] [place] [address] Referral ID Status Reason Start Date Expiration Date V isits Requested Visits Authorized [id number] Closed Auto-Generate d Referral 12/19/2021 01/18/2023 1 1 [facility] for visit Narrative* Diagnostic Procedure Only (Routine) - Closed Specialty Diagnoses / Procedures Referred By Saad ramirez Referred To Contact [facility] Diagnoses Missed ab Procedures IPAS DOUBLE VALVE ASPIRATOR W CANNULA SINGLE USE TX MISSED FIRST TRIMESTER SURGICAL Teresa Sales MD [address] [place] [address] Ilir Ramirez MD [address] [place] [address] Referral ID Status Reason Start Date Expiration Date Visits Re quested Visits Authorized [id number] Closed 02/26/2022 06/26/2022 1 1 [facility] for visit Narrative* Diagnostic Procedure Only (Routine) - Closed Specialty Diagnoses / Procedures Referred By Saad Referred To Contact [facility] Diagnoses Encounter for test, result positive Procedures OBSTETRIC ULTRASOUND WHI US PREG UTERUS AFTER 1ST TRIMEST GESTATION Teresa Sales MD [address] [place] [address] [facility] [address] [place] [address] Referral ID Status Reason Start Date Expiration Date V isits Requested Visits Authorized [id number] Closed Auto-Generate d Referral 09/17/2022 09/17/2023 1 1 [facility] for visit Narrative* Diagnostic Procedure Only (Urgent) - Closed Specialty Diagnoses / Procedures Referred By Saad ramirez Referred To Contact XR IMAGING Diagnoses Acute wrist pain, left Procedures XR WRIST INJURY 4V PA/LAT/OBL/SCAPH LEFT RADEX WRIST COMPLETE MINIMUM 3 VIEWS Anselmo Ferraro MD [address] [place] [address] [place] [address] Referral ID Status Reason Start Date Expiration Date V isits Requested Visits Authorized [id number] Closed Auto-Generate d Referral 12/19/2021 01/18/2023 1 1 [facility] Summary Purpose Family History No Family History Records FoundNo Family History Records Found Advance Directives No Advanced Directives Records FoundNo Advanced Directives Records Found Health Concerns Infection Onset Date Last Indicated Resolved Time COVID-19 Rule-Out 02/01/2022 02/01/2022 Problem Noted Date OB Reminders 09/10/2022 Problem Noted Date OB Reminders 09/10/2022 Problem Noted Date OB Reminders 09/10/2022 Medications Administered Section Inactive Administered Medications - up to 3 most recent administrations Medication Order MAR Action Action Date Dose Rate Site keTORolac 60 mg injection (TORADOL) 60 mg, INTRAMUSCULAR, ONCE, 1 dose, On Mila 03/04/22 at 1000, Ketorolac (Toradol) is indicated for the short-term (up to 5 days) management of moderately severe acute pain. Continuation of ketorolac (Toradol) beyond 5 days increases the risk of developing serious adverse events. Please verify the duration of therapy for ketorolac (Toradol)., If ordered PRN for pain, patient/guardian may elect to receive this medication for higher pain levels INSTEAD of the opioid, if preferred: Yes Given 03/04/2022 9:45 AM EDT 60 mg Buttocks, Left Additional Source Comments Source Comments (unrecognize d section and content) In the event this informatio n is protected by the Federal Confidentiality of Alcohol and Drug Abuse Patient Records regulations: The Federal rules restrict any use of the information to criminally investigate or prosecute any alcohol or drug abuse patient.[facility] the event this information is protected by the Federal Confidentiality of Alcohol and Drug Abuse Patient Records regulations: The Federal rules restrict any use of the information to criminally investigate or prosecute any alcohol or drug abuse patient.[facility] the event this information is protected by the Federal Confidentiality of Alcohol and Drug Abuse Patient Records regulations: The Federal rules restrict any use of the information to criminally investigate or prosecute any alcohol or drug abuse patient.[facility] the event this information is protected by the Federal Confidentiality of Alcohol and Drug Abuse Patient Records regulations: The Federal rules restrict any use of the information to criminally investigate or prosecute any alcohol or drug abuse patient.[facility] the event this information is protected by the Federal Confidentiality of Alcohol and Drug Abuse Patient Records regulations: The Federal rules restrict any use of the information to criminally investigate or prosecute any alcohol or drug abuse patient.[facility] the event this information is protected by the Federal Confidentiality of Alcohol and Drug Abuse Patient Records regulations: The Federal rules restrict any use of the information to criminally investigate or prosecute any alcohol or drug abuse patient.[facility] the event this information is protected by the Federal Confidentiality of Alcohol and Drug Abuse Patient Records regulations: The Federal rules restrict any use of the information to criminally investigate or prosecute any alcohol or drug abuse patient.[facility] the event this information is protected by the Federal Confidentiality of Alcohol and Drug Abuse Patient Records regulations: The Federal rules restrict any use of the information to criminally investigate or prosecute any alcohol or drug abuse patient.[facility] the event this information is protected by the Federal Confidentiality of Alcohol and Drug Abuse Patient Records regulations: The Federal rules restrict any use of the information to criminally investigate or prosecute any alcohol or drug abuse patient.[facility] the event this information is protected by the Federal Confidentiality of Alcohol and Drug Abuse Patient Records regulations: The Federal rules restrict any use of the information to criminally investigate or prosecute any alcohol or drug abuse patient.[facility] the event this information is protected by the Federal Confidentiality of Alcohol and Drug Abuse Patient Records regulations: The Federal rules restrict any use of the information to criminally investigate or prosecute any alcohol or drug abuse patient.[facility] the event this information is protected by the Federal Confidentiality of Alcohol and Drug Abuse Patient Records regulations: The Federal rules restrict any use of the information to criminally investigate or prosecute any alcohol or drug abuse patient.[facility] the event this information is protected by the Federal Confidentiality of Alcohol and Drug Abuse Patient Records regulations: The Federal rules restrict any use of the information to criminally investigate or prosecute any alcohol or drug abuse patient.[facility] the event this information is protected by the Federal Confidentiality of Alcohol and Drug Abuse Patient Records regulations: The Federal rules restrict any use of the information to criminally investigate or prosecute any alcohol or drug abuse patient.[facility] the event this information is protected by the Federal Confidentiality of Alcohol and Drug Abuse Patient Records regulations: The Federal rules restrict any use of the information to criminally investigate or prosecute any alcohol or drug abuse patient.[facility] the event this information is protected by the Federal Confidentiality of Alcohol and Drug Abuse Patient Records regulations: The Federal rules restrict any use of the information to criminally investigate or prosecute any alcohol or drug abuse patient.[facility] the event this information is protected by the Federal Confidentiality of Alcohol and Drug Abuse Patient Records regulations: The Federal rules restrict any use of the information to criminally investigate or prosecute any alcohol or drug abuse patient.[facility] the event this information is protected by the Federal Confidentiality of Alcohol and Drug Abuse Patient Records regulations: The Federal rules restrict any use of the information to criminally investigate or prosecute any alcohol or drug abuse patient.[facility] the event this information is protected by the Federal Confidentiality of Alcohol and Drug Abuse Patient Records regulations: The Federal rules restrict any use of the information to criminally investigate or prosecute any alcohol or drug abuse patient.[facility] the event this information is protected by the Federal Confidentiality of Alcohol and Drug Abuse Patient Records regulations: The Federal rules restrict any use of the information to criminally investigate or prosecute any alcohol or drug abuse patient.[facility] the event this information is protected by the Federal Confidentiality of Alcohol and Drug Abuse Patient Records regulations: The Federal rules restrict any use of the information to criminally investigate or prosecute any alcohol or drug abuse patient.[facility] the event this information is protected by the Federal Confidentiality of Alcohol and Drug Abuse Patient Records regulations: The Federal rules restrict any use of the information to criminally investigate or prosecute any alcohol or drug abuse patient.[facility] the event this information is protected by the Federal Confidentiality of Alcohol and Drug Abuse Patient Records regulations: The Federal rules restrict any use of the information to criminally investigate or prosecute any alcohol or drug abuse patient.[facility] the event this information is protected by the Federal Confidentiality of Alcohol and Drug Abuse Patient Records regulations: The Federal rules restrict any use of the information to criminally investigate or prosecute any alcohol or drug abuse patient.[facility] the event this information is protected by the Federal Confidentiality of Alcohol and Drug Abuse Patient Records regulations: The Federal rules restrict any use of the information to criminally investigate or prosecute any alcohol or drug abuse patient.[facility] the event this information is protected by the Federal Confidentiality of Alcohol and Drug Abuse Patient Records regulations: The Federal rules restrict any use of the information to criminally investigate or prosecute any alcohol or drug abuse patient.[facility] the event this information is protected by the Federal Confidentiality of Alcohol and Drug Abuse Patient Records regulations: The Federal rules restrict any use of the information to criminally investigate or prosecute any alcohol or drug abuse patient.[facility] Reason for Visit (unrecogniz ed section and content) Reason Comments Sore Throat pain rated 1, x1 wee k Diarrhea Pt denied blood, rep orted mucus Reason Comments Results Reason Comments Abdominal Pain LLQ pain, nausea, di arrhea x1 week Reason Comments left wrist pain felll last night Headache x 3 days Reason Comments Nausea & Vomiting Daniels pain rated 4, x2 days, missed menses x3 mths Reason Comments Well Woman Reason Comments Care Reason Comments threatened miscarriage Reason Comments Results Reason Comments 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 This clinical summary was aggregated from multiple sources. Caution should be exercised in using it in the provision of clinical care. This summary normalizes information from multiple sources, and as a consequence, information in this document may materially change the coding, format and clinical context of patient data. In addition, data may be omitted in some cases. CLINICAL DECISIONS SHOULD BE BASED ON THE PRIMARY CLINICAL RECORDS. [facility] [employer] [facility]. provides no warranty or guarantee of the accuracy or completeness of information in this document.
--- NOTE | 2024-12-18 | EX.ED.DYSGE1 ---
HPI History of Present Illness Chief Complaint: Allergic Reaction Informant: patient and spouse/S.O. Narrative Narrative: Itchy hives on arms, legs, and face for the past 2 days. Itching somewhat hard to sleep at night. No tongue or throat swelling, intraoral lesions or pruritus, dyspnea, or hand or foot swelling. No syncope. She states she was out in the yard doing a lot and thought maybe she contacted something, the itching and redness started that evening. She takes no prescriptions. PFSH PFSH Medical History Anemia Home Medications ?Medication ?Instructions ?Recorded ?Last Taken ?Type prednisone 10 mg tablet 10 mg PO UD #30 tabs 12/18/24 Unknown Rx Allergy/AdvReac Type Severity Reaction Status Date / Time Penicillins Allergy Hives Verified 12/17/24 20:50 Social History Smoking Status: Light Smoker (<10/day) ROS ROS ED Constitutional Constitutional ED: Denies chills or fever(s) Eyes Eyes: Denies change in vision or diplopia ENT ENT ED: Denies rhinorrhea or sore throat Cardiovascular Cardiovascular: Denies chest pain or palpitations Respiratory/Chest Respiratory/Chest: Denies cough or dyspnea Gastrointestinal Gastrointestinal: Denies abdominal pain, diarrhea, nausea or vomiting Genitourinary Genitourinary ED: Denies dysuria or hematuria Musculoskeletal Musculoskeletal: Denies back pain or neck pain Integumentary Reports pruritus and rash; Denies abscess Neurologic Neurologic: Denies headache(s), paresthesias or weakness Psychiatric Psychiatric: Denies suicidal thoughts EXAM Physical Exam Const Vital Signs: 12/17/24 20:50 Temperature 98.5 F Temperature Source Oral Pulse Rate 98 Respiratory Rate 16 Blood Pressure 114/78 Blood Pressure Mean 90 Pulse Ox 99 Positive well nourished and well developed General Appearance ED: well developed and NAD HEENT Reports moist mucous membranes HEENT Narrative: Bilateral facial flushing. normocephalic and atraumatic Eyes PERRL and EOMs intact bilaterally Eyes Narrative: No chemosis, conjunctival injection, or eye tearing/discharge. Neck full ROM and supple Resp normal respiratory effort and clear to auscultation bilaterally Cardio regular rate, regular rhythm and no murmurs Extremity Extremity Narrative: Scattered urticaria on forearms and thighs mostly. All compartment soft and nondistended nontender. General Extremety ED: Negative for edema, pulses abnormal or tenderness General Extremity: Negative for edema or pulses abnormal Neuro oriented x3, CN's II-XII intact bilaterally and no sensory deficits noted Sensorium / Orientation: awake and alert Motor Exam: strength 5/5 throughout Psych mental status grossly normal Skin no wounds Skin Narrative: Urticaria on extremities but not on trunk. She has some on her face as well. They are coalescent on her cheeks. Nothing that is tender. No petechiae. No bullae. MDM MDM MDM Narrative Medical decision making narrative: Patient is given Kenalog 40 mg IM, show be given a prescription for some prednisone to use in addition to this if after 24-48 hours she is not having significant relief. Given some Benadryl tonight as well. Her vital signs are normal she has no symptoms or signs of anaphylaxis. Discharge Plan Triage Chief Complaint: Allergic Reaction ED Provider: Fernie Villa Dx/Rx/DC Orders Clinical Impression: Allergic urticaria Instructions: ED Hives (Adult) Prescriptions: New prednisone 10 mg tablet 10 mg PO UD Qty: 30 0RF Rx Instructions: Take 4 tablets daily for 3 days, then 3 daily for 3 days, then 2 daily for 3 days, then 1 a day for 3 days Primary Care Provider: Care Physician,No Primary Referrals: Doctor,Your [Non-Staff] - 1 Week if not improving Activity Restrictions/Additional Instructions: Give the injection 24-48 hours to see if it is taking her hives away. If they are mostly gone and your itchiness significantly better, hold off on the prednisone. If you start a prednisone prescription, you have to complete the entire taper. You can use Benadryl separate from this as needed for any itching in the first 48 hours. Print Language: [place] Disposition Disposition: Home, Self Care
[2024-12-18] MEDS: Triamcinolone Acetonide 40 MG/ML Vial IM (00:09)
[2024-12-18] MEDS: DiphenhydrAMINE 25 MG Capsule 50 MG PO (00:12)
[2024-12-18 00:14] VITALS: BP 103/75; PULSE 85; RESP 16; TEMP 36.9; O2SAT 100
== END 2024-12-18 00:24 | disposition home or self-care (01) ==
PROVIDERS: Emergency Provider Emergency Medicine; Visit Provider Emergency Medicine
DX: L50.0 Allergic urticaria (principal); F17.200 Nicotine dependence, unspecified, uncomplicated
CPT/HCPCS: 96372; 99282